=== PATIENT | female | born 1940 | race Caucasian/White ===

== ENCOUNTER 2017-10-19 18:32 | Emergency (ER) | payer OTHER ==
[2017-10-19] MEDS ORDERED: METHYLPREDNISOLONE 125 MG INJ ONE ×2 (18:37→19:13)
[2017-10-19] MEDS ORDERED: IPRATROPIUM BROM 0.5MG/2.5ML ONE (18:38)
[2017-10-19] MEDS ORDERED: ALBUTEROL 2.5 MG/3 ML NEB SOL ONE (18:38)
[2017-10-19 19:12] LABS: Absolute Lymphocytes (CBC) 3.3 K/uL (0.7-4.9); Absolute Monocytes 0.8 K/uL (0.1-1.3); Absolute Neutrophil 3.8 K/uL (1.8-8.0); Basophils % 1.4 % (0-1.3); Eosinophils % 11.1 % (0-4.4); Hematocrit 44.5 % (36.0-45.0); Lymphocytes % 36.8 % (15.3-44.8); MCH 31.3 pg (27.0-35.0); MCV 94.3 fL (80-100); MPV 9.5 fL (7.6-11.3); RBC Red Blood Cell Count 4.72 M/uL (3.86-4.86)
--- NOTE | 2017-10-19 19:20 | RAD REPORT ---
EXAM DESCRIPTION: Swapna Single View10/19/2017 7:02 pm CLINICAL HISTORY: Shortness of breath COMPARISON: July 2017 FINDINGS: Upper lobe opacities are unchanged and likely represents scarring. The lungs appear clear of acute infiltrate. The heart is normal size. The lungs are hyperaerated IMPRESSION: No acute abnormalities displayed
[2017-10-19 19:23] LABS: Albumin 3.9 g/dL (3.2-5.5); Bilirubin Direct 0.1 mg/dL (0-0.2); Bilirubin Total 0.7 mg/dL (0.3-1.2); Magnesium 2.1 mg/dL (1.8-2.5); Protein, Total 6.9 g/dL (6.0-8.3)
--- NOTE | 2017-10-19 20:05 | ER ---
Nurse's Notes [facility] Name: Maria Fernanda Toro Age: 77 yrs Sex: Female : 1940 Arrival Date: 10/19/2017 Time: 18:43 Bed 4 Private MD: Diagnosis: Chronic obstructive pulmonary disease with (acute) exacerbation Presentation: 10/19 18:44 Presenting complaint: EMS states: Home [employer] call due to increased shortness of jl7 breath since this morning. She had 4 albuterol treatments at home and 1 albuterol and Atrovent with EMS. Uses home oxygen. Transition of care: patient was not received from another setting of care. Onset of symptoms was October 19, 2017. Risk Assessment: Do you want to hurt yourself or someone else? Patient reports no desire to harm self or others. Initial Sepsis Screen: Does the patient meet any 2 criteria? No. Patient's initial sepsis screen is negative. Does the patient have a suspected source of infection? No. Patient's initial sepsis screen is negative. Care prior to arrival: Medication(s) given: Albuterol Neb x 1, Atrovent Neb x 1, Oxygen administered. via nasal cannula. 18:44 Method Of Arrival: EMS: [facility] jl7 18:44 Acuity: MARIUM 2 jl7 Triage Assessment: 18:44 General: Appears distressed, Behavior is calm, cooperative, appropriate for age. Pain: jl7 Denies pain. EENT: No signs and/or symptoms were reported regarding the EENT system. Neuro: Level of Consciousness is awake, alert, obeys commands, Oriented to person, place, time, situation. Cardiovascular: Heart tones S1 S2 present Patient's skin is warm and dry. Respiratory: Reports shortness of breath at rest Airway is patent Respiratory effort is even, labored, Respiratory pattern is symmetrical, tachypnea Breath sounds with wheezes bilaterally. Onset: The symptoms/episode began/occurred this morning, the patient has moderate shortness of breath. Historical: - Allergies: 18:54 adhesive tape-silicones; jl7 - Home Meds: 20:48 albuterol sulfate 2.5 mg /3 mL (0.083 %) Inhl nebu as needed [Active]; bupropion HCl bb 300 mg Oral Tb24 1 tab once daily [Active]; levothyroxine 100 mcg tab 1 tab once daily [Active]; losartan 50 mg Oral tab 1 tab once daily [Active]; prednisone 10 mg Oral tab 1 tab 2 times per day [Active]; simvastatin 20 mg Oral tab 1 tab once daily [Active]; sotalol 80 mg Oral tab 0.5 tab 2 times per day [Active]; montelukast 10 mg Oral tab 1 tab once daily [Active]; aspirin 81 mg Oral chew 1 tab once daily [Active]; donepezil 10 mg oral tab 1 tab once daily [Active]; performist as prescribed BID [Active]; ProAir HFA 90 mcg/actuation inhalation HFAA 2 puffs every 8 hours [Active]; Restasis 0.05 % ophthalmic dpet 1 drop 2 times per day [Active]; Atrovent Nebulizer every 6 hours [Active]; memantine 5 mg oral tab 1 tabs 2 times per day [Active]; theophylline 200 mg Oral Tb12 1 tab every 12 hours [Active]; - PMHx: 18:54 Atrial Fib; COPD; Dementia; High Cholesterol; Hypertension; Hypothyroidism; jl7 - PSHx: 18:54 Hysterectomy; Appendectomy; jl7 - Immunization history:: Adult Immunizations up to date. - Social history:: Smoking status: Patient/guardian denies using tobacco, but has a distant history of tobacco abuse. - Ebola Screening: : No symptoms or risks identified at this time. Screenin:54 Abuse screen: Denies threats or abuse. Denies injuries from another. Nutritional jl7 screening: No deficits noted. Tuberculosis screening: No symptoms or risk factors identified. Fall Risk IV access (20 points). Total [place] Fall Scale indicates No Risk (0-24 pts). Assessment: 19:00 Cardiovascular: Rhythm is sinus rhythm. bb 19:14 General: Appears in no apparent distress. slender, Behavior is calm, cooperative. Pain: bb Denies pain. Neuro: Level of Consciousness is awake, alert, obeys commands, Oriented to person, place, situation. Cardiovascular: Heart tones S1 S2 present Capillary refill < 3 seconds Patient's skin is warm and dry. Pulses are all present. Edema is absent. Respiratory: Airway is patent Respiratory effort is labored, Respiratory pattern is symmetrical, Breath sounds are diminished bilaterally. Breath sounds with wheezes bilaterally. GI: No signs and/or symptoms were reported involving the gastrointestinal system. Abdomen is non-distended. Derm: Skin is dry, Skin is pale, Skin temperature is warm. Musculoskeletal: Circulation, motion, and sensation intact. 20:15 Reassessment: Patient and/or family updated on plan of care and expected duration. Pain bb level reassessed. pt A\T\O x 3, resp improved bilateral breath sounds clearer pt states she is feeling better. 20:38 Reassessment: Patient is alert, oriented x 3, equal unlabored respirations, skin bb warm/dry/pink. pt and healthcare architect verbalized understanding of and agrees to plan of care discharge instructions given pt assisted to exit via wheelchair accompanied by healthcare architect. Vital Signs: 18:44 BP 174 / 68; Pulse 68; Resp 28 S; Temp 98.1(O); Pulse Ox 100% on Nebulizer Mask; Weight jl7 72.57 kg; Pain 0/10; 20:13 BP 133 / 85; Pulse 66; Resp 18 S; Pulse Ox 99% on 2 lpm NC; bb 20:39 BP 134 / 38; Pulse 66; Resp 18; Temp 97.9(O); Pulse Ox 99% on 2 lpm NC; bb ED Course: 18:43 Patient arrived in ED. jl7 18:44 Martín Wills PA is PHCP. jr8 18:44 Narciso Manley MD is Attending Physician. jr8 18:44 Inserted saline lock: 20 gauge in right antecubital area, using aseptic technique. iw Blood collected. 18:44 Arm band placed on right wrist. jl7 18:45 Triage completed. jl7 18:54 Patient has correct armband on for positive identification. Bed in low position. Call jl light in reach. Side rails up X2. general car yard supervisor on. Pulse ox on. NIBP on. Warm blanket given. 18:58 X-ray completed. Portable x-ray completed in exam room. Patient tolerated procedure kc2 well. 19:00 XRAY Chest (1 view) In Process Unspecified. EDMS 19:14 Vale Torres, GLORIA is Primary Nurse. bb 19:14 IV is intact. bb 19:14 general car yard supervisor on. Pulse ox on. NIBP on. bb 20:40 No provider procedures requiring assistance completed. IV discontinued, intact, bb bleeding controlled, No redness/swelling at site. Pressure dressing applied. Administered Medications: 18:45 Drug: Albuterol - atroVENT (3:1) (2.5 mg - 0.5 mg) 3 ml Route: Nebulizer; jl7 20:00 Follow up: Response: Marked relief of symptoms bb 18:45 Drug: SOLU-Medrol 125 mg Route: IVP; Site: right antecubital; jl7 20:00 Follow up: Response: Marked relief of symptoms larry Outcome: 20:04 Discharge ordered by . landon 20:40 Discharged to home via wheelchair, with healthcare architect larry 20:40 Condition: stable 20:40 Discharge instructions given to patient, [employer], Instructed on discharge instructions, follow up and referral plans. medication usage, Demonstrated understanding of instructions, follow-up care, medications, Prescriptions given X 1. 20:49 Patient left the ED. larry Signatures: Dispatcher [employer] EDMS Vale Torres RN RN bb Williams, Irene, RN RN iw Roszak, Josh, PA PA jr8 Carr, Kelsie kc Monisha Akbar RN RN jl7 Corrections: (The following items were deleted from the chart) 18:46 18:44 Care prior to arrival: None. radhika jl7
--- NOTE | 2017-10-19 20:05 | EDPHYS ---
Physician Documentation [facility] Name: Maria Fernanda Toro Age: 77 yrs Sex: Female : 1940 Arrival Date: 10/19/2017 Time: 18:43 Bed 4 Private MD: ED Physician Narciso Manley HPI: 10/19 19:22 This 77 yrs old Female presents to ER via EMS with complaints of Breathing jr8 Difficulty. 19:22 The patient has shortness of breath at rest. Onset: The symptoms/episode began/occurred jr8 gradually, 2 day(s) ago, and became worse and became persistent. The patient's shortness of breath is aggravated by talking, walking. Associated signs and symptoms: Pertinent positives: non-productive cough. Severity of symptoms: At their worst the symptoms were moderate in the emergency department the symptoms are unchanged. The patient has experienced similar episodes in the past, a few times. The patient has not recently seen a physician. Historical: - Allergies: 18:54 adhesive tape-silicones; jl7 - Home Meds: 20:48 albuterol sulfate 2.5 mg /3 mL (0.083 %) Inhl nebu as needed [Active]; bupropion HCl bb 300 mg Oral Tb24 1 tab once daily [Active]; levothyroxine 100 mcg tab 1 tab once daily [Active]; losartan 50 mg Oral tab 1 tab once daily [Active]; prednisone 10 mg Oral tab 1 tab 2 times per day [Active]; simvastatin 20 mg Oral tab 1 tab once daily [Active]; sotalol 80 mg Oral tab 0.5 tab 2 times per day [Active]; montelukast 10 mg Oral tab 1 tab once daily [Active]; aspirin 81 mg Oral chew 1 tab once daily [Active]; donepezil 10 mg oral tab 1 tab once daily [Active]; performist as prescribed BID [Active]; ProAir HFA 90 mcg/actuation inhalation HFAA 2 puffs every 8 hours [Active]; Restasis 0.05 % ophthalmic dpet 1 drop 2 times per day [Active]; Atrovent Nebulizer every 6 hours [Active]; memantine 5 mg oral tab 1 tabs 2 times per day [Active]; theophylline 200 mg Oral Tb12 1 tab every 12 hours [Active]; - PMHx: 18:54 Atrial Fib; COPD; Dementia; High Cholesterol; Hypertension; Hypothyroidism; jl7 - PSHx: 18:54 Hysterectomy; Appendectomy; jl7 - Immunization history:: Adult Immunizations up to date. - Social history:: Smoking status: Patient/guardian denies using tobacco, but has a distant history of tobacco abuse. - Ebola Screening: : No symptoms or risks identified at this time. ROS: 19:22 Eyes: Negative for injury, pain, redness, and discharge, ENT: Negative for injury, jr8 pain, and discharge, Neck: Negative for injury, pain, and swelling, Cardiovascular: Negative for chest pain, palpitations, and edema, Abdomen/GI: Negative for abdominal pain, nausea, vomiting, diarrhea, and constipation, Back: Negative for injury and pain, MS/Extremity: Negative for injury and deformity, Skin: Negative for injury, rash, and discoloration, Neuro: Negative for headache, weakness, numbness, tingling, and seizure. 19:22 Respiratory: Positive for cough, dyspnea on exertion, shortness of breath, wheezing. Exam: 19:22 Eyes: Pupils equal round and reactive to light, extra-ocular motions intact. Lids and jr8 lashes normal. Conjunctiva and sclera are non-icteric and not injected. Cornea within normal limits. Periorbital areas with no swelling, redness, or edema. ENT: Nares patent. No nasal discharge, no septal abnormalities noted. Tympanic membranes are normal and external auditory canals are clear. Oropharynx with no redness, swelling, or masses, exudates, or evidence of obstruction, uvula midline. Mucous membranes moist. Neck: Trachea midline, no thyromegaly or masses palpated, and no cervical lymphadenopathy. Supple, full range of motion without nuchal rigidity, or vertebral point tenderness. No Meningismus. Cardiovascular: Regular rate and rhythm with a normal S1 and S2. No gallops, murmurs, or rubs. Normal PMI, no JVD. No pulse deficits. Abdomen/GI: Soft, non-tender, with normal bowel sounds. No distension or tympany. No guarding or rebound. No evidence of tenderness throughout. Back: No spinal tenderness. No costovertebral tenderness. Full range of motion. Skin: Warm, dry with normal turgor. Normal color with no rashes, no lesions, and no evidence of cellulitis. MS/ Extremity: Pulses equal, no cyanosis. Neurovascular intact. Full, normal range of motion. Neuro: Awake and alert, GCS 15, oriented to person, place, time, and situation. Cranial nerves II-XII grossly intact. Motor strength 5/5 in all extremities. Sensory grossly intact. Cerebellar exam normal. Normal gait. 19:22 Respiratory: mild respiratory distress is noted, Respirations: tachypnea, Breath sounds: wheezing: expiratory that is moderate, is heard diffusely. Vital Signs: 18:44 BP 174 / 68; Pulse 68; Resp 28 S; Temp 98.1(O); Pulse Ox 100% on Nebulizer Mask; Weight jl7 72.57 kg; Pain 0/10; 20:13 BP 133 / 85; Pulse 66; Resp 18 S; Pulse Ox 99% on 2 lpm NC; bb 20:39 BP 134 / 38; Pulse 66; Resp 18; Temp 97.9(O); Pulse Ox 99% on 2 lpm NC; bb MDM: 18:44 Patient medically screened. jr8 20:02 Differential diagnosis: CHF exacerbation, Chronic Obstructive Pulmonary Disease jr8 pneumonia, pulmonary edema, Sepsis. Data reviewed: vital signs, nurses notes, lab test result(s), radiologic studies, plain films, and as a result, I will discharge patient. Data interpreted: Pulse oximetry: on 2L(s) per nasal canula, is 100 %. Interpretation: normal. Counseling: I had a detailed discussion with the patient and/or guardian regarding: the historical points, exam findings, and any diagnostic results supporting the discharge/admit diagnosis, lab results, radiology results, the need for outpatient follow up, a family practitioner, to return to the emergency department if symptoms worsen or persist or if there are any questions or concerns that arise at home. Response to treatment: the patient's symptoms have markedly improved after treatment. 10/19 18:45 Order name: Basic Metabolic Panel; Complete Time: 19:10/19 18:45 Order name: BNP; Complete Time: 19:10/19 18:45 Order name: CBC with Diff; Complete Time: 19:17 10/19 18:45 Order name: LFT's; Complete Time: :10/19 18:45 Order name: Magnesium; Complete Time: 19:10/19 18:45 Order name: XRAY Chest (1 view); Complete Time: 19:20 10/19 18:45 Order name: EKG; Complete Time: 18:45 10/19 18:45 Order name: Cardiac monitoring; Complete Time: 19:10/19 18:45 Order name: EKG - Nurse/Tech; Complete Time: 19:10/19 18:45 Order name: IV Saline Lock; Complete Time: 19:10/19 18:45 Order name: Labs collected and sent; Complete Time: :10/19 18:45 Order name: O2 Per Protocol; Complete Time: :10/19 18:45 Order name: O2 Sat Monitoring; Complete Time: : Administered Medications: 18:45 Drug: Albuterol - atroVENT (3:1) (2.5 mg - 0.5 mg) 3 ml Route: Nebulizer; jl7 20:00 Follow up: Response: Marked relief of symptoms bb 18:45 Drug: SOLU-Medrol 125 mg Route: IVP; Site: right antecubital; jl7 20:00 Follow up: Response: Marked relief of symptoms bb Disposition: 10/20 07:28 Co-signature as Attending Physician, Narciso Manley MD I agree with the assessment and kdr plan of care. Disposition: 10/19/17 20:04 Discharged to Home. Impression: Chronic obstructive pulmonary disease with (acute) exacerbation. - Condition is Stable. - Discharge Instructions: Chronic Obstructive Pulmonary Disease. - Prescriptions for Prednisone 20 mg Oral Tablet - take 2 tablet by ORAL route once daily for 5 days; 10 tablet. - Medication Reconciliation Form, Thank You Letter, Antibiotic Education, Prescription Opioid Use form. - Follow up: Private Physician; When: 2 - 3 days; Reason: Recheck today's complaints, Continuance of care, Re-evaluation by your physician. - Problem is new. - Symptoms have improved. Signatures: Dispatcher [employer] EDNarciso Jara MD MD [facility] Vale Torres RN RN bb Martín Wills PA PA jr8 Monisha Akbar RN RN jl7 Corrections: (The following items were deleted from the chart) 10/19 20:49 20:04 10/19/2017 20:04 Discharged to Home. Impression: Chronic obstructive pulmonary bb disease with (acute) exacerbation. Condition is Stable. Forms are Medication Reconciliation Form, Thank You Letter, Antibiotic Education, Prescription Opioid Use. Follow up: Private Physician; When: 2 - 3 days; Reason: Recheck today's complaints, Continuance of care, Re-evaluation by your physician. Problem is new. Symptoms have improved. jr8
[2017-10-19 20:53] VITALS: O2SAT 99
[2017-10-19 20:54] VITALS: BP 134/38; TEMP 97.9
--- NOTE | 2017-10-20 10:37 | EKG ---
Test Date: 2017-10-19 Test Time: 18:44:00 Partner Management Consultant: SU MEASUREMENT RESULTS: Intervals: Rate: 67 WI: 142 QRSD: 116 QT: 404 QTc: 426 [place]: P: 72 WI: 142 QRS: 49 T: 38 INTERPRETIVE STATEMENTS: Normal sinus rhythm Right bundle branch block Abnormal ECG Compared to ECG 08/07/2017 12:19:32 Sinus bradycardia no longer present Electronically Signed On 10-20-17 10:34:56 CDT by Rodrigo Vang
== END 2017-10-19 20:49 | disposition home or self-care (01) ==
LOC: ER 18:32
DX: J44.1 Chronic obstructive pulmonary disease with (acute) exacerbation (principal); I48.91 Unspecified atrial fibrillation; I10 Essential (primary) hypertension; E78.00 Pure hypercholesterolemia, unspecified; Z87.891 Personal history of nicotine dependence; F03.90 Unspecified dementia, unspecified severity, without behavioral disturbance, psychotic disturbance, mood disturbance, and anxiety; E03.9 Hypothyroidism, unspecified; Z99.81 Dependence on supplemental oxygen; Z91.040 Latex allergy status
CPT/HCPCS: 36415; 71045; 80048; 80076; 83735; 83880; 85025; 93005; 94640; 96374; 99285; J2930

== ENCOUNTER 2018-05-02 06:38 | Inpatient (IN) | payer OTHER ==
--- OUTSIDE RECORDS SUMMARY | 2018-05-02 06:41 | XMS REPORT | Continuity of Care Document ---
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 [place] Depression with Active 08/09/19 Finding 08/08/[address] [facility] 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 Alzheimer's [facility] disease [place] Hypothyroidism Active 08/09/19 Finding 08/08/[address] [facility] [place] Oxygen dependent Active 08/09/19 Finding 08/08/[address] [facility] [place] Chest pain Active 08/09/19 Finding 08/08/[address] 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 Alzheimer[facility] disease [place] Mixed anxiety Active 08/09/19 Finding 08/08/[address] [facility] depressive [facility] disorder [place] Dependence on Active 08/09/19 Finding 08/08/[address] [facility] supplemental 18 [facility] oxygen [place] Steroid Active 08/09/19 Finding 08/08/[address] [facility] dependence [facility] [place] Tobacco use Active 06/01/19 Finding 08/08/[address] [facility] disorder [facility] [place] Seizures Active 09/09/19 Finding 08/08/[address] [facility] [place] UTI Active 07/20/19 Finding 08/08/[address] [facility] [place] Respiratory Active 07/20/19 Finding 08/08/[address] [facility] distress [facility] [place] Acute bronchitis Active 07/20/19 Finding 08/08/[address] [facility] [facility] COPD [facility] [place] COPD exacerbation Active 10/15/19 Finding 08/08/[address] [facility] [place] Elevated troponin Active 10/15/19 Finding 08/08/[address] [facility] [place] COPD with acute Active 06/30/19 Finding 08/08/[address] [facility] [address] exacerbation [facility] [place] Hypertension Active 06/30/19 Finding 08/08/[address] [facility] [place] Dyspnea Active 04/23/20 Finding 08/08/[address] [facility] [place] COPD Active 04/23/20 Finding 08/08/[address] [facility] [place] Non Q wave Active 04/21/20 Finding 08/08/[address] [facility] myocardial [facility] - infarction [place] Atrial Active 03/03/20 Finding 08/08/[address] [facility] fibrillation [facility] [place] Hypoxia Active 08/29/19 Finding 08/08/[address] [facility] [place] Failure of Active 06/11/19 Finding 08/08/[address] [facility] treatment [place] Acute OR Active Finding 08/08/[address] [facility] [place] Medications Medication Details Route Status Patient Ordering Order Source Instructions Provider Date Levothyroxine DAILY AT [address] [facility] [place] Prednisone TWICE DAILY Active Prezas [facility] [place] Aspirin DAILY [facility] [place] Theophylline DAILY Active [facility] Anhydrous [facility] [place] Donepezil AT BEDTIME Active [facility] [place] Simvastatin DAILY Active [facility] [place] Montelukast AT BEDTIME Active [facility] [place] Prednisone TWICE DAILY Active Greg [facility] [place] Budesonide/Form TWICE DAILY Active [facility] oterol Fumarate 9AM & 2PM [facility] [place] Doxycycline TWICE DAILY Active [facility] Hyclate 9AM & 2PM [facility] [place] Levothyroxine DAILY AT [address] [facility] [place] Losartan DAILY Active [facility] Potassium [facility] [place] Sotalol Hcl TWICE DAILY Active [facility] 9AM & 2PM [facility] [place] Tiotropium DAILY Active [facility] [place] Bupropion Hcl TWICE DAILY Active [facility] [place] Prednisone TWICE DAILY Active Dov [facility] [place] Formoterol TWICE DAILY Active Bee [facility] Fumarate RESPIRATORY [facility] [place] Prednisone DAILY AT [address] [facility] [place] Levothyroxine DAILY AT [address] [facility] [facility] [place] Prednisone TWICE DAILY Active Juanito [facility] [place] Sotalol Hcl TWICE DAILY Active [facility] 0600 AND 1800 0[facility] [place] Sotalol Hcl TWICE DAILY Active Alcaraz [facility] 0600 AND 1800 0[facility] [place] Rivaroxaban DAILY Active Alcaraz [facility] [place] Sotalol Hcl TWICE DAILY Active Castañeda [facility] 0600 AND 1800 015 [facility] [place] Rivaroxaban DAILY Active Castañeda [facility] [place] Albuterol NEEDED PRN Active [facility] Sulfate For Shortness 015 [facility] Of Breath [place] Losartan DAILY Active [facility] Potassium [facility] [place] Symbicort NEEDED PRN Active [facility] 160-4.5 Mcg For Shortness 012 [facility] - Inhaler Of Breath [place] Allergies, Adverse Reactions, Alerts Substance Category Reaction Severity Reaction Status Date Comments Source type Reported adhesive Unknown Allergy to Active [facility] tape Substance [facility] [place] adhesive Unknown Allergy to Active [facility] tape-silico Substance [facility] yoan [place] Immunizations Immunization Date Given Site Status Last Comments Source Updated Pneumovax 04/18/2015 completed [facility] [place] Results Order Name Results Value Reference Date Interpretation Comments Source Range Laboratory Creatine 1.9 ng/ml 0.3 - 4.0 08/08 [facility] St[facility] Studies Kinase MB /2017 [employer] - [place] Laboratory Creatine 49 IU/L 22 - 269 08/08 St[facility] Studies Kinase /2017 [facility] [place] Laboratory Troponin I null 08/08 St[facility] Studies /2017 [facility] [place] Laboratory Triglycerides 88 mg/dL 35 - 160 08/08 St[facility] Studies Level /2017 [facility] [place] Laboratory Sodium Level 140 mEq/L 135 - 145 08/08 [facility] [address] Studies /2017 [facility] [place] Laboratory Potassium 4.8 mEq/L 3.6 - 5.0 08/08 [facility] [address] Studies Level /2017 [facility] [place] Laboratory Magnesium 2.1 mg/dL 1.8 - 2.5 08/08 [facility]. Studies Level /2017 [facility] [place] Laboratory LDL 66 08/08 [facility]. Studies Cholesterol, /2017 [facility] - Calculated [place] Laboratory HDL 88 mg/dL 29 - 89 08/[address] [facility] [address] Studies Cholesterol /2017 [facility] [place] Laboratory Glucose Level 138 mg/dL 65 - 120 08/08 [facility] [address] Studies /2018 [facility] [place] Laboratory Estimat 56 mL/min 90 08/08 [facility]. Studies Glomerular /2017 [facility] - Filtration [place] Rate Laboratory Creatinine 0.97 mg/dL 0.44 - 08/08 [facility] [address] Studies 1.00 [employer] - [place] Laboratory Cholesterol/H 1.95 08/08 [facility]. Studies DL Ratio /2017 [employer] - [place] Laboratory Cholesterol 172 mg/dL 08/[address] [facility] [address] Studies Level /2017 [facility] [place] Laboratory Chloride 107 mEq/L 101 - 111 08/08 [facility] [address] Studies Level /2018 [facility] [place] Laboratory Carbon 29 mEq/L 21 - 31 08/08 [facility]. Studies Dioxide Level /2017 [employer] - [place] Laboratory Calcium Level 9.5 mg/dL 8.5 - 10.5 08/08 [facility] [address] Studies /2017 [facility] [place] Laboratory Blood Urea 18 mg/dL 6 - 20 08/08 [facility] [address] Studies Nitrogen /2017 [employer] - [place] Laboratory White Blood 12.3 K/uL 4.3 - 10.9 08/08 [facility] [address] Studies Count /2017 [employer] - [place] Laboratory Red Cell 13.4 % 12.1 - 08/08 [facility] [address] Studies Distribution 15.2 [facility] - Width [place] Laboratory Red Blood 4.25 M/uL 3.86 - 08/08 [facility] [address] Studies Count 4.86 [facility] [place] Laboratory Platelet 289 K/uL 152 - 406 08/[address] [facility] [address] Studies Count /2017 [facility] [place] Laboratory Neutrophils % 80.3 % 41.7 - 08/08 [facility] [address] Studies 73.7 /2017 [facility] [place] Laboratory Monocytes % 3.7 % 3.3 - 12.3 08/08 [facility] [address] Studies /2017 [facility] [place] Laboratory Mean Platelet 9.4 fL 7.6 - 11.3 08/08 [facility] [address] Studies Volume /2017 [facility] [place] Laboratory Mean 94.0 fL 80 - 100 08/08 [facility]. Studies Corpuscular /2017 [facility] - Volume [place] Laboratory Mean 33.3 g/dL 32.0 - 08/08 [facility] [address] Studies Corpuscular 36.0 [facility] - Hemoglobin [place] Concent Laboratory Mean 31.3 pg 27.0 - 08/08 [facility]. Studies Corpuscular 35.0 [facility] - Hemoglobin [place] Laboratory Lymphocytes % 15.1 % 15.3 - 08/08 [facility] [address] Studies 44.8 /2017 [facility] [place] Laboratory Hemoglobin 13.3 g/dL 12.0 - 08/08 [facility] [address] Studies 15.0 /2017 [facility] [place] Laboratory Hematocrit 39.9 % 36.0 - 08/08 [facility] [address] Studies 45.0 [facility] [place] Laboratory Eosinophils % 0.2 % 0 - 4.4 08/08 [facility] [address] Studies /2017 [facility] [place] Laboratory Basophils % 0.7 % 0 - 1.3 08/08 [facility] [address] Studies /2017 [facility] [place] Laboratory Absolute 9.9 K/uL 1.8 - 8.0 08/08 [facility] [address] Studies Neutrophil /2017 [facility] [place] Laboratory Absolute 0.5 K/uL 0.1 - 1.3 08/08 [facility] [address] Studies Monocytes /2017 [facility] - (CBC) [place] Laboratory Absolute 1.9 K/uL 0.7 - 4.9 08/08 [facility] [address] Studies Lymphocytes /2017 [facility] - (CBC) [place] Laboratory Absolute 0.0 K/uL 0 - 0.5 08/08 St[facility] Studies Eosinophils [facility] - (CBC) [place] Laboratory Absolute 0.1 K/uL 0 - 0.5 08/08 [facility] [address] Studies Basophils [facility] - (CBC) [place] Laboratory Thyroid 0.07 uIU/mL 0.34 - 08/07 [facility] St. Studies Stimulating 5.60 [facility] - Hormone (TSH) [place] Laboratory Urine pH 7.0 08/07 [facility] [address] Studies [facility] [place] Laboratory Urine Total Urine Total 08/07 [facility] [address] Studies Protein Protein [facility] [place] Laboratory Urine 1.025 08/07 [facility] [address] Studies Specific [facility] - Hilliards [place] Laboratory Urine Nitrite Urine 08/07 [facility] [address] Studies Nitrite [facility] [place] Laboratory Urine Urine 08/07 [facility]. Studies Leukocyte Leukocyte [facility] - Esterase Esterase [place] Laboratory Urine Ketones Urine 08/07 [facility] [address] Studies Ketones [facility] [place] Laboratory Urine Glucose Urine 08/07 [facility] [address] Studies Glucose [facility] [place] Laboratory Urine Blood Urine Blood 08/07 [facility] [address] Studies [facility] [place] Laboratory B-Type 107 pg/ml 08/07 [facility] [address] Studies Natriuretic [facility] - Peptide [place] Laboratory Total 0.8 mg/dL 0.3 - 1.2 08/07 [facility] [address] Studies Bilirubin [facility] [place] Laboratory Serum Total 7.0 g/dL 6.0 - 8.3 08/07 [facility] [address] Studies Protein [facility] [place] Laboratory Globulin 3.0 g/dL 2.3 - 3.5 08/07 [facility] [address] Studies [facility] [place] Laboratory Direct 0.1 mg/dL 0 - 0.2 08/07 [facility] [address] Studies Bilirubin [facility] [place] Laboratory Aspartate 23 IU/L 10 - 42 08/07 [facility] [address] Studies Amino Transf [facility] - (AST/SGOT) [place] Laboratory Alkaline 59 IU/L 42 - 121 08/07 [facility] [address] Studies Phosphatase [facility] [place] Laboratory Albumin/Globu 1.3 1.1 - 1.8 08/07 [facility]. Studies robby Ratio /2017 [facility] [place] Laboratory Albumin 4.0 g/dL 3.2 - 5.5 08/07 [facility] [address] Studies /2017 [facility] [place] Laboratory Alanine 10 IU/L 10 - 60 08/07 [facility]. Studies Aminotransfer /2017 [facility] - ase [place] (ALT/SGPT) Laboratory Rapid null 08/07 [facility]. Studies Troponin I /2017 [facility] [place] Laboratory Lipase 29 U/L 22 - 51 08/07 [facility] [address] Studies /2017 [facility] [place] Laboratory Prothrombin 11.1 9.5 - 12.5 08/07 [facility]. Studies Time SECONDS /2017 [facility] [place] Laboratory INR 0.94 08/07 [facility] [address] Studies International /2017 [facility] - Normalized [place] Ratio Laboratory Activated 24.2 24.3 - 08/07 [facility]. Studies Partial SECONDS 36.9 [facility] - Thromboplast [place] Time Laboratory Phosphorus 4.5 mg/dL 2.5 - 4.3 06/03 [facility]. Studies Level /2017 [facility] [place] Laboratory Urine WBC null 06/01 [facility] [address] Studies [facility] [place] Laboratory Urine 0.2 mg/dL 06/01 [facility]. Studies Urobilinogen /2017 [facility] [place] Laboratory Urine Urine 06/01 [facility]. Studies Squamous Squamous /2017 [facility] - Epithelial Epithelial [place] Cells Cells Laboratory Urine RBC null 06/01 [facility] [address] Studies [facility] [place] Laboratory Urine Culture Urine 06/01 [facility]. Studies Reflexed Culture /2017 [facility] - Reflexed [place] Laboratory Urine Color Urine Color 06/01 [facility] St[facility] Studies /2018 [facility] [place] Laboratory Urine Urine 06/01 [facility]. Studies Bilirubin Bilirubin /2017 [facility] [place] Laboratory Urine null 06/01 [facility]. Studies Bacteria /2017 [facility] [place] Laboratory Urine Urine 06/01 [facility]. Studies Appearance Appearance /2017 [facility] [place] Laboratory Procalcitonin null 05/31 [facility] [address] Studies [facility] [place] Vital Signs Vital Sign Value Date Comments Source Temperature Oral (F) 97.9 F 08/08/2017 [facility]. [facility] [place] Heart Rate 63 08/08/2017 [facility]. [facility] [place] Respitory Rate 17 08/08/[address] [facility] [place] Systolic (mm Hg) 152 08/08/[address] [facility] [place] Diastolic (mm Hg) 73 08/08/[address] [facility] [address] [place] Height 64 08/07/[address] [facility] [address] [place] - [place] Weight 125 08/07/[address] [facility] [address] [place] Encounters Location Location Encounter Encounter Reason Attending ADM DC Status Source Details Type Number For Provider Date Date Visit [facility] [id number] 05/29 05/29 [facility] [place] [facility] [id number] 05/30 05/[facility] [place] [facility] St[facility] Discharged [id number] 05/31 06/[address] [facility] [place] [facility] St[facility] Registered [id number] 07/[address] [facility] [place] [facility] St[facility] Discharged [id number] 08/07 08/[address] [facility] [place] Procedures Procedure Code Date Perfomer Comments Source [id number] [facility] [place] Count [id number] [facility] [place] Chest Single [id number] [facility] - View 8 [place] Influenza Type [facility] - B Antigen 8 [place] Screen Influenza Type [facility] - A Antigen 8 [place] Screen Anaerobic Blood [facility] - Culture 8 [place] Aerobic Blood [facility] Culture 8 [place] Thorax Wo Con [id number] [facility] 8 [place] Chest Single [id number] [facility] View 8 [place] [id number] [facility] [place] Count [id number] [facility] [place] Chest Single [id number] [facility] View 8 [place] Anaerobic Blood [id number] [facility] Culture 8 [place] Aerobic Blood [id number] [facility] Culture 8 [place] Chest Pa And [id number] [facility] - Lat (2 Views) 8 [place] Anaerobic Blood [id number] [facility] Culture 8 [place] Aerobic Blood [id number] [facility] Culture 8 [place] Chest Single [id number] [facility] View 8 [place] Influenza Type [facility] B Antigen 8 [place] Screen Influenza Type [facility] A Antigen 8 [place] Screen
[2018-05-02] MEDS ORDERED: ACETAMINOPHEN 325 MG TABLET ONE (07:24)
[2018-05-02] MEDS ORDERED: ALBUTEROL 2.5 MG/3 ML NEB SOL ONE (07:24)
[2018-05-02] MEDS ORDERED: IPRATROPIUM BROM 0.5MG/2.5ML ONE (07:24)
[2018-05-02] MEDS ORDERED: METHYLPREDNISOLONE 125 MG INJ ONE (07:24)
[2018-05-02] MEDS ORDERED: NA CHLORIDE 0.9% 500 ML ONE (07:24)
[2018-05-02] MEDS ORDERED: CEFTRIAXONE/SWI 1gm 2 GM/20 ML SYR ONE (07:25)
[2018-05-02] MEDS ORDERED: AZITHROMYCIN 500 MG/250 ML BAG ONE (07:25)
--- NOTE | 2018-05-02 07:29 | EDPHYS ---
Physician Documentation [facility] Name: Maria Fernanda Toro Age: 77 yrs Sex: Female : 1940 Arrival Date: 05/02/2018 Time: 06:40 Bed 4 Private MD: ORACIO Physician Matt Romero HPI: 05/02 07:05 This 77 yrs old Female presents to ER via EMS with complaints of cough ,fever manuel and ams. 07:05 The patient or guardian reports airway noise, cough, difficulty breathing. Onset: The manuel symptoms/episode began/occurred 2 day(s) ago. Modifying factors: The symptoms are alleviated by nothing. the symptoms are aggravated by nothing. The patient presents with confusion, decreased mental status. Possible causes: sepsis. The patient or guardian reports flu symptoms, arthralgias, low-grade fever, myalgias. Associated signs and symptoms: The patient has no apparent associated signs or symptoms. Historical: - Allergies: 06:49 adhesive tape-silicones; bb - Home Meds: 06:49 memantine 5 mg Oral tab 1 tabs daily [Active]; bupropion HCl 300 mg Oral Tb24 1 tab bb once daily [Active]; donepezil 10 mg Oral tab 1 tab once daily [Active]; sotalol 80 mg Oral tab 0.5 tab 2 times per day [Active]; theophylline 200 mg Oral Tb12 1 tab daily [Active]; simvastatin 20 mg Oral tab 1 tab once daily [Active]; montelukast 10 mg Oral tab 1 tab once daily [Active]; prednisone 10 mg Oral tab 1 tab once daily [Active]; losartan 50 mg Oral tab 1 tab once daily [Active]; levothyroxine 100 mcg tab 1 tab once daily [Active]; vit d3 1000 iu daily [Active]; aspirin 81 mg Oral chew 1 tab once daily [Active]; - PMHx: 06:49 Atrial Fib; COPD; Dementia; High Cholesterol; Hypertension; Hypothyroidism; bb - PSHx: 06:49 Hysterectomy; Appendectomy; bb - Immunization history:: Adult Immunizations unknown. - Social history:: Smoking status: unknown. - Ebola Screening: : No symptoms or risks identified at this time. - Family history:: not pertinent. ROS: 07:05 Eyes: Negative for injury, pain, redness, and discharge, ENT: Negative for injury, manuel pain, and discharge, Neck: Negative for injury, pain, and swelling, Cardiovascular: Negative for chest pain, palpitations, and edema, Abdomen/GI: Negative for abdominal pain, nausea, vomiting, diarrhea, and constipation, Back: Negative for injury and pain, : Negative for injury, bleeding, discharge, and swelling, MS/Extremity: Negative for injury and deformity, Skin: Negative for injury, rash, and discoloration, Neuro: Negative for headache, weakness, numbness, tingling, and seizure. 07:05 Constitutional: Positive for fever, malaise. Exam: 07:05 Constitutional: This is a well developed, well nourished patient who is awake, alert, manuel and in no acute distress. Head/Face: Normocephalic, atraumatic. Eyes: Pupils equal round and reactive to light, extra-ocular motions intact. Lids and lashes normal. Conjunctiva and sclera are non-icteric and not injected. Cornea within normal limits. Periorbital areas with no swelling, redness, or edema. ENT: Nares patent. No nasal discharge, no septal abnormalities noted. Tympanic membranes are normal and external auditory canals are clear. Oropharynx with no redness, swelling, or masses, exudates, or evidence of obstruction, uvula midline. Mucous membranes moist. Neck: Trachea midline, no thyromegaly or masses palpated, and no cervical lymphadenopathy. Supple, full range of motion without nuchal rigidity, or vertebral point tenderness. No Meningismus. Chest/axilla: Normal chest wall appearance and motion. Nontender with no deformity. No lesions are appreciated. Cardiovascular: Regular rate and rhythm with a normal S1 and S2. No gallops, murmurs, or rubs. Normal PMI, no JVD. No pulse deficits. Abdomen/GI: Soft, non-tender, with normal bowel sounds. No distension or tympany. No guarding or rebound. No evidence of tenderness throughout. Back: No spinal tenderness. No costovertebral tenderness. Full range of motion. Skin: Warm, dry with normal turgor. Normal color with no rashes, no lesions, and no evidence of cellulitis. MS/ Extremity: Pulses equal, no cyanosis. Neurovascular intact. Full, normal range of motion. Neuro: Awake and alert, GCS 15, oriented to person, place, time, and situation. Cranial nerves II-XII grossly intact. Motor strength 5/5 in all extremities. Sensory grossly intact. Cerebellar exam normal. Normal gait. Psych: Awake, alert, with orientation to person, place and time. Behavior, mood, and affect are within normal limits. 07:05 Respiratory: mild respiratory distress is noted, moderate respiratory distress is noted, Respirations: normal, Breath sounds: decreased breath sounds, that are moderate, are heard in the left posterior upper lobe, right posterior upper lobe, left posterior lower lobe, right posterior middle lobe and right posterior lower lobe, rhonchi, + upper airway congestion. wheezing: Vital Signs: 06:49 BP 138 / 87; Pulse 73; Resp 20; Temp 100; Pulse Ox 98% ; ea 08:06 BP 135 / 67; Pulse 68 MON; Resp 24; Temp 101(C); Pulse Ox 100% on Nebulizer Mask; sv 08:56 BP 118 / 50; Pulse 93; Resp 21; Temp 100.5(C); Pulse Ox 96% ; sv 09:03 BP 109 / 57; Pulse 71; Resp 23; Temp 100.3(C); Pulse Ox 95% on R/A; sv 09:26 Temp 100.1(C); sv 08:06 Sinus Rhythm sv MDM: 06:53 Patient medically screened. [facility] 07:09 Data reviewed: vital signs, nurses notes, EMS record, lab test result(s), EKG, manuel radiologic studies, plain films. 05/02 07:05 Order name: Basic Metabolic Panel [facility] 05/02 07:05 Order name: CBC with Diff; Complete Time: 07:55 [facility] 05/02 07:05 Order name: LFT's; Complete Time: 08:29 [facility] 05/02 07:05 Order name: Magnesium; Complete Time: 08:29 [facility] 05/02 07:05 Order name: NT PRO-BNP; Complete Time: 08:29 [facility] 05/02 07:05 Order name: PT-INR [facility] 05/02 07:05 Order name: Troponin (emerg Dept Use Only); Complete Time: 08:29 [facility] 05/02 07:05 Order name: Lipase; Complete Time: 08:29 [facility] 05/02 07:05 Order name: Blood Culture Adult (2) [facility] 05/02 07:05 Order name: Urine Culture [facility] 05/02 07:05 Order name: Influenza Screen (a \T\ B); Complete Time: 07:55 [facility] 05/02 07:05 Order name: Procalcitonin; Complete Time: 08:29 [facility] 05/02 07:05 Order name: Lactate; Complete Time: 08:29 [facility] 05/02 07:17 Order name: Basic Metabolic Panel; Complete Time: 08:29 [facility] 05/02 07:05 Order name: XRAY Chest (1 view) [facility] 05/02 07:05 Order name: EKG; Complete Time: 07:17 [facility] 05/02 07:05 Order name: Cardiac monitoring; Complete Time: 08:04 [facility] 05/02 07:05 Order name: EKG - Nurse/Tech; Complete Time: 08:04 [facility] 05/02 07:05 Order name: IV Saline Lock; Complete Time: 07:07 [facility] 05/02 07:05 Order name: Labs collected and sent; Complete Time: 08:04 [facility] 05/02 07:05 Order name: O2 Per Protocol; Complete Time: 08:04 [facility] 05/02 08:08 Order name: Urine Dipstick--Ancillary (enter results) [facility] 05/02 08:23 Order name: Heart Healthy [facility] 05/02 07:05 Order name: O2 Sat Monitoring; Complete Time: 08:04 [facility] 05/02 07:05 Order name: Urine Dipstick-Ancillary (obtain specimen); Complete Time: 08:05 [facility] 05/02 07:42 Order name: Teague; Complete Time: 08:04 [facility] Administered Medications: 07:30 Drug: SOLU-Medrol 125 mg Route: IVP; Site: right forearm; sv 08:15 Follow up: Response: No adverse reaction sv 07:35 Drug: NS 0.9% 500 ml Route: IV; Rate: bolus; Site: right forearm; sv 08:15 Follow up: Response: No adverse reaction; IV Status: Completed infusion; IV Intake: sv 500ml 07:35 Drug: Tylenol 650 mg Route: PO; sv 09:26 Follow up: Temp 100.1 Catheter; Response: No adverse reaction; Temperature is decreased sv 07:37 Drug: Rocephin - (cefTRIAXone) 2 grams Route: IVPB; Infused Over: 30 mins; Site: right sv forearm; 08:15 Follow up: Response: No adverse reaction; IV Status: Completed infusion; IV Intake: 20mlsv 08:02 Drug: Albuterol - atroVENT (3:1) (2.5 mg - 0.5 mg) 3 ml Route: Nebulizer; sv 08:14 Follow up: Response: No adverse reaction sv 08:16 Drug: Zithromax 500 mg Route: IVPB; Infused Over: 1 hrs; Site: right forearm; sv 09:26 Follow up: Response: No adverse reaction; IV Status: Completed infusion; IV Intake: sv 250ml Disposition: 05/02/18 07:28 Hospitalization ordered by Chino Garza for Inpatient Admission. Preliminary diagnosis are Dyspnea, Fever, unspecified, Altered mental status, unspecified, Chronic obstructive pulmonary disease with (acute) exacerbation, Dementia in other diseases classified elsewhere, Elevated white blood cell count. - Bed requested for Telemetry/MedSurg (Inpatient). - Status is Inpatient Admission. sv - Condition is Fair. - Problem is new. - Symptoms have improved. UTI on Admission? No Signatures: Dispatcher [employer] [facility] Tamera Slade, SHARLENE-C CLINICAL DOCUMENTATION IMPROVEMENT SPECIALIST-Evelyn Avila RN RN Adeladia Gaitan RN RN dw Anderson, Corey, MD MD cha Ballard, Brenda, RN RN bb Corrections: (The following items were deleted from the chart) 07:55 07:28 Hospitalization Ordered by Chino Garza MD for Inpatient Admission. Preliminary manuel diagnosis is Dyspnea; Fever, unspecified; Altered mental status, unspecified; Chronic obstructive pulmonary disease with (acute) exacerbation; Dementia in other diseases classified elsewhere. Bed requested for Telemetry/MedSurg (Inpatient). Status is Inpatient Admission. Condition is Fair. Problem is new. Symptoms have improved. UTI on Admission? No. manuel 08:35 08:30 Arterial Blood Gas+RC.LAB.BRZ ordered. [facility] EDNV 09:00 07:55 05/02/2018 07:28 Hospitalization Ordered by Chino Garza MD for Inpatient dw Admission. Preliminary diagnosis is Dyspnea; Fever, unspecified; Altered mental status, unspecified; Chronic obstructive pulmonary disease with (acute) exacerbation; Dementia in other diseases classified elsewhere; Elevated white blood cell count. Bed requested for Telemetry/MedSurg (Inpatient). Status is Inpatient Admission. Condition is Fair. Problem is new. Symptoms have improved. UTI on Admission? No. manuel 09:42 09:00 05/02/2018 07:28 Hospitalization Ordered by Chino Garza MD for Inpatient sv Admission. Preliminary diagnosis is Dyspnea; Fever, unspecified; Altered mental status, unspecified; Chronic obstructive pulmonary disease with (acute) exacerbation; Dementia in other diseases classified elsewhere; Elevated white blood cell count. Bed requested for Telemetry/MedSurg (Inpatient). Status is Inpatient Admission. Condition is Fair. Problem is new. Symptoms have improved. UTI on Admission? No. dw
--- NOTE | 2018-05-02 07:29 | ER ---
Nurse's Notes [facility] Name: Maria Fernanda Toro Age: 77 yrs Sex: Female : 1940 Arrival Date: 05/02/2018 Time: 06:40 Bed 4 Private MD: Diagnosis: Dyspnea;Fever, unspecified;Altered mental status, unspecified;Chronic obstructive pulmonary disease with (acute) exacerbation;Dementia in other diseases classified elsewhere;Elevated white blood cell count Presentation: 05/02 06:42 Presenting complaint: EMS states: they were toned out for report of pt being more bb confused than normal x 1 week. Transition of care: patient was not received from another setting of care. Onset of symptoms is unknown. Risk Assessment: Do you want to hurt yourself or someone else? Patient reports no desire to harm self or others. Initial Sepsis Screen: Does the patient meet any 2 criteria? No. Patient's initial sepsis screen is negative. Does the patient have a suspected source of infection? No. Patient's initial sepsis screen is negative. Care prior to arrival: None. 06:42 Method Of Arrival: EMS: [facility] bb 06:42 Acuity: MARIUM 2 bb Historical: - Allergies: 06:49 adhesive tape-silicones; bb - Home Meds: 06:49 memantine 5 mg Oral tab 1 tabs daily [Active]; bupropion HCl 300 mg Oral Tb24 1 tab bb once daily [Active]; donepezil 10 mg Oral tab 1 tab once daily [Active]; sotalol 80 mg Oral tab 0.5 tab 2 times per day [Active]; theophylline 200 mg Oral Tb12 1 tab daily [Active]; simvastatin 20 mg Oral tab 1 tab once daily [Active]; montelukast 10 mg Oral tab 1 tab once daily [Active]; prednisone 10 mg Oral tab 1 tab once daily [Active]; losartan 50 mg Oral tab 1 tab once daily [Active]; levothyroxine 100 mcg tab 1 tab once daily [Active]; vit d3 1000 iu daily [Active]; aspirin 81 mg Oral chew 1 tab once daily [Active]; - PMHx: 06:49 Atrial Fib; COPD; Dementia; High Cholesterol; Hypertension; Hypothyroidism; bb - PSHx: 06:49 Hysterectomy; Appendectomy; bb - Immunization history:: Adult Immunizations unknown. - Social history:: Smoking status: unknown. - Ebola Screening: : No symptoms or risks identified at this time. - Family history:: not pertinent. Screenin:30 Abuse screen: Denies threats or abuse. Denies injuries from another. Nutritional sv screening: No deficits noted. Tuberculosis screening: No symptoms or risk factors identified. Fall Risk No fall in past 12 months (0 pts). Secondary diagnosis (15 points) dementia, IV access (20 points). Ambulatory Aid- None/Bed Rest/Nurse Assist (0 pts). Gait- Normal/Bed Rest/Wheelchair (0 pts) Mental Status- Overestimates/Forgets Limitations (15 pts.). Total Smallwood Fall Scale indicates High Risk Score (45 or more points). Fall prevention measures have been instituted. Side Rails Up X 2 Frequent Obs/Assessments Occuring Family Present and informed to notify staff if the need to leave the bedside As available patient and family educated on Fall Prevention Program and Strategies. Assessment: 06:49 General: Appears in no apparent distress. Behavior is cooperative. Pain: Denies pain. ea Neuro: Level of Consciousness is awake, alert, Oriented to person. Cardiovascular: Heart tones S1 S2 present Patient's skin is warm and dry. Respiratory: Airway is patent Respiratory effort is even, unlabored, Respiratory pattern is regular, symmetrical, Breath sounds with rhonchi in left upper lobe, left posterior upper lobe and right posterior upper lobe. GI: Abdomen is non-distended. Derm: Skin is pink, warm \T\ dry. 07:30 General: Appears in no apparent distress. uncomfortable, well developed, Behavior is sv cooperative. General: Caregiver reports that she has been more confused the last couple of days.. Pain: Denies pain. Neuro: Level of Consciousness is confused, lethargic, Oriented to person, Moves all extremities. Cardiovascular: Heart tones S1 S2 present Pulses are 3+ in right radial artery and left radial artery. Respiratory: Respiratory effort is even, unlabored, Respiratory pattern is tachypnea Breath sounds are diminished bilaterally. Breath sounds with rhonchi bilaterally. Derm: Skin is normal, Skin temperature is hot. 08:30 Reassessment: Spoke with Dr Garza, informed him that pt is still confused and sv attempting to get out of bed. Caregiver is at bedside. Stated that he would come and assess the pt. 08:45 Reassessment: Dr Greg at bedside. sv 09:05 Reassessment: Nurse to call back for report. sv 09:35 Reassessment: Patient appears in no apparent distress at this time. No changes from sv previously documented assessment. Patient and/or family updated on plan of care and expected duration. Pain level reassessed. Vital Signs: 06:49 BP 138 / 87; Pulse 73; Resp 20; Temp 100; Pulse Ox 98% ; ea 08:06 BP 135 / 67; Pulse 68 MON; Resp 24; Temp 101(C); Pulse Ox 100% on Nebulizer Mask; sv 08:56 BP 118 / 50; Pulse 93; Resp 21; Temp 100.5(C); Pulse Ox 96% ; sv 09:03 BP 109 / 57; Pulse 71; Resp 23; Temp 100.3(C); Pulse Ox 95% on R/A; sv 09:26 Temp 100.1(C); sv 08:06 Sinus Rhythm sv ED Course: 06:40 Patient arrived in ED. al2 06:43 Triage completed. bb 06:49 Arm band placed on Patient placed in an exam room, on a stretcher. bb 06:51 Patient has correct armband on for positive identification. Placed in gown. Bed in low ea position. Call light in reach. Side rails up X2. 06:53 Matt Romero MD is Attending Physician. manuel 07:06 Inserted saline lock: 22 gauge in right forearm, using aseptic technique. oe 07:17 Evelyn Day, GLORIA is Primary Nurse. sv 07:25 Chino Garza MD is Hospitalizing Provider. manuel 07:45 Teague cath inserted, using sterile technique, 16 Fr., by co, balloon inflated, to sv gravity drainage, urine specimen collected. other Criticore returned edmond urine. Patient tolerated poorly. 08:05 Basic Metabolic Panel Sent. sv 08:05 XRAY Chest (1 view) Sent. sv 08:11 X-ray completed. Portable x-ray completed in exam room. Patient tolerated procedure ag1 well. 08:17 XRAY Chest (1 view) In Process Unspecified. EDMS 09:05 No provider procedures requiring assistance completed. Patient admitted, IV remains in sv place. intact. 09:22 Patient moved back from CT. sv Administered Medications: 07:30 Drug: SOLU-Medrol 125 mg Route: IVP; Site: right forearm; sv 08:15 Follow up: Response: No adverse reaction sv 07:35 Drug: NS 0.9% 500 ml Route: IV; Rate: bolus; Site: right forearm; sv 08:15 Follow up: Response: No adverse reaction; IV Status: Completed infusion; IV Intake: sv 500ml 07:35 Drug: Tylenol 650 mg Route: PO; sv 09:26 Follow up: Temp 100.1 Catheter; Response: No adverse reaction; Temperature is decreased sv 07:37 Drug: Rocephin - (cefTRIAXone) 2 grams Route: IVPB; Infused Over: 30 mins; Site: right sv forearm; 08:15 Follow up: Response: No adverse reaction; IV Status: Completed infusion; IV Intake: 20mlsv 08:02 Drug: Albuterol - atroVENT (3:1) (2.5 mg - 0.5 mg) 3 ml Route: Nebulizer; sv 08:14 Follow up: Response: No adverse reaction sv 08:16 Drug: Zithromax 500 mg Route: IVPB; Infused Over: 1 hrs; Site: right forearm; sv 09:26 Follow up: Response: No adverse reaction; IV Status: Completed infusion; IV Intake: sv 250ml Intake: 08:15 IV: 20ml; Total: 20ml. sv 08:15 IV: 500ml; Total: 520ml. sv 09:26 IV: 250ml; Total: 770ml. sv Outcome: 07:28 Decision to Hospitalize by Provider. [facility] 09:34 Admitted to Med/surg accompanied by tech, via stretcher, room 403, with chart, Report sv called to Olive CASTRO 09:34 Condition: stable 09:34 Instructed on the need for admit. 09:42 Patient left the ED. sv Signatures: Dispatcher [employer] EDEvelyn Sims RN RN sv Anderson, Corey, MD MD cha Ballard, Brenda, RN RN bb Gallaway, Ashley ag1 tSephen Marie Elena RN Tangela Gomez ea
[2018-05-02 07:44] LABS: Absolute Lymphocytes (CBC) 2.8 K/uL (0.7-4.9); Absolute Monocytes 1.4 K/uL (0.1-1.3); Absolute Neutrophil 10.5 K/uL (1.8-8.0); Basophils % 1.1 % (0-1.3); Eosinophils % 0.6 % (0-4.4); Hematocrit 43.1 % (36.0-45.0); Lymphocytes % 18.8 % (15.3-44.8); MCV 94.4 fL (80-100); MPV 10.5 fL (7.6-11.3); Monocytes % 9.5 % (3.3-12.3); RBC Red Blood Cell Count 4.57 M/uL (3.86-4.86)
[2018-05-02] MEDS ORDERED: ACETAMINOPHEN 500 MG TAB PO PRN (08:19)
[2018-05-02] MEDS ORDERED: ONDANSETRON 4 MG/2 ML VIAL IV PRN (08:19)
[2018-05-02 08:26] LABS: ALT/SGPT 12 U/L (12-78); AST/SGOT 22 U/L (15-37); Albumin 3.3 g/dL (3.4-5.0); Alkaline Phosphatase 61 U/L (45-117); BUN Blood Urea Nitrogen 15 mg/dL (7-18); Bicarbonate 26 mmol/L (21-32); Bilirubin Direct 0.1 mg/dL (0-0.2); Bilirubin Total 0.8 mg/dL (0.2-1.0); Glucose Level 104 mg/dL (74-106); Lipase 133 U/L (73-393); Magnesium 2.3 mg/dL (1.8-2.4); NT PRO-BNP 197 pg/mL (<450); Potassium 4.9 mmol/L (3.5-5.1); Protein, Total 7.3 g/dL (6.4-8.2); Sodium Level 141 mmol/L (136-145); Troponin (Emerg Dept Use Only) < 0.02 ng/mL (0.0-0.045)
[2018-05-02] MEDS: METHYLPREDNISOLONE 40 MG INJ IV SCH ×2 (09:00→16:55)
[2018-05-02] MEDS ORDERED: TRAZODONE 50 MG TABLET PO ONE (09:16)
--- NOTE | 2018-05-02 09:49 | RAD REPORT ---
EXAM DESCRIPTION: Swapna Single View05/02/2018 8:20 am CLINICAL HISTORY: Cough. COMPARISON: September 2017 FINDINGS: Small left upper lobe opacity is unchanged probably representing scarring. Lungs appear clear of acute infiltrate. The heart is normal size IMPRESSION: No acute abnormalities displayed
[2018-05-02 09:50] LABS: Urine Blood 2+ (NEG); Urine Glucose NEGATIVE (NEG); Urine Protein NEGATIVE (NEG); Urine pH 5.5 (5.0-7.0)
--- NOTE | 2018-05-02 10:03 | RAD REPORT ---
EXAM DESCRIPTION: CT - Head Brain Wo Cont - 05/02/2018 9:21 am CLINICAL HISTORY: Transient alteration of awareness, history of dementia COMPARISON: August 2016 TECHNIQUE: Axial 5 mm thick images of the head were obtained without IV contrast. All CT scans are performed using dose optimization technique as appropriate and may include automated exposure control or mA/KV adjustment according to patient size. FINDINGS: No intracranial hemorrhage, mass, edema or shift of mid-line structures. No acute infarcti on changes seen. Atrophy changes are minimal and similar to 2017. Ventricles are in proportion. Mild chronic ischemic changes are present. Arterial and physiologic calcifications are present. Air-fluid level present in the right maxillary sinus which is only partially imaged. Sinus lucas are thickened and sclerotic. Mastoid air cells are clear. No acute bony findings. IMPRESSION: No acute intracranial finding. No significant atrophy and only minimal chronic ischemic change matching the comparison. Acute and chronic sinusitis in the right maxillary sinus.
[2018-05-02 10:48] LABS: Protime INR 1.13
[2018-05-02] MEDS: LEVALBUTEROL 0.63 MG/3 ML NEB NEB SCH ×2 (13:45→19:32)
[2018-05-02 14:59] VITALS: BMI 23.8
--- NOTE | 2018-05-02 17:48 | EKG ---
Test Date: 2018-05-02 Test Time: 07:12:28 Dump Grader: GISELLE MEASUREMENT RESULTS: Intervals: Rate: 68 CA: 144 QRSD: 120 QT: 394 QTc: 418 [place]: P: 76 CA: 144 QRS: 45 T: 19 INTERPRETIVE STATEMENTS: Sinus rhythm with premature atrial complexes with aberrant conduction Right bundle branch block Abnormal ECG Compared to ECG 10/19/2017 18:44:00 Atrial premature complex(es) now present Aberrant conduction of supraventricular beat(s) now present Electronically Signed On 05-02-18 17:47:30 DUCTFIXING PLUMBER by Mejia Alcaraz
[2018-05-02] MEDS: ARFORMOTEROL TARTRATE 15 MCG/2 ML VIAL.NEB IH SCH (19:32)
[2018-05-02] MEDS: SOTALOL HCL 80 MG TAB PO SCH (21:00)
[2018-05-02] MEDS: ATORVASTATIN 10 MG TAB PO SCH (21:00)
[2018-05-02] MEDS: MONTELUKAST 10 MG TAB PO SCH (21:00)
[2018-05-02] MEDS ORDERED: HOME MED 1 EA UNK (Simvastatin [Simvastatin] 20 MG) PO SCH (21:00)
[2018-05-02] MEDS ORDERED: PERFOROMIST NEB SCH (21:00)
[2018-05-02] MEDS: DONEPEZIL HCL 5 MG TAB PO SCH (21:00)
[2018-05-02] MEDS: NA CHLORIDE 0.9% 1,000 ML IV SCH (22:44)
[2018-05-03] MEDS: METHYLPREDNISOLONE 40 MG INJ IV SCH ×2 (00:07→14:13)
[2018-05-03] MEDS: LEVALBUTEROL 0.63 MG/3 ML NEB NEB SCH ×4 (01:10→20:37)
[2018-05-03 04:49] LABS: Absolute Lymphocytes (CBC) 0.9 K/uL (0.7-4.9); Absolute Monocytes 0.3 K/uL (0.1-1.3); Absolute Neutrophil 11.1 K/uL (1.8-8.0); Basophils % 0.3 % (0-1.3); MCH 31.9 pg (27.0-35.0); MCV 93.7 fL (80-100); MPV 9.3 fL (7.6-11.3); Monocytes % 2.3 % (3.3-12.3); RBC Red Blood Cell Count 4.06 M/uL (3.86-4.86)
[2018-05-03 04:57] LABS: Potassium 3.7 mmol/L (3.5-5.1)
[2018-05-03 05:17] LABS: Platelet Estimate ADEQ; Urine White Blood Cell Casts OK
[2018-05-03 05:18] LABS: Blood Morphology Comment NOT SEEN (NOT SEEN); Toxic Granulation 1+
[2018-05-03] MEDS: LEVOTHYROXINE SOD 0.1 MG TAB PO SCH (05:21)
[2018-05-03] MEDS: ARFORMOTEROL TARTRATE 15 MCG/2 ML VIAL.NEB IH SCH ×2 (07:50→20:37)
[2018-05-03] MEDS: NA CHLORIDE 0.9% 1,000 ML IV SCH ×2 (09:00→19:57)
[2018-05-03] MEDS ORDERED: HOME MED 1 EA UNK (Memantine Hcl [Memantine Hcl] 5 MG) PO SCH (09:00)
[2018-05-03] MEDS ORDERED: HOME MED 1 EA UNK (Theophylline Anhydrous [Theo-24] 200 MG) PO SCH (09:00)
[2018-05-03] MEDS ORDERED: TRAZODONE 50 MG TABLET PO ONE (10:07)
[2018-05-03] MEDS: ASPIRIN 81 MG CHEWABLE TABLET PO SCH (11:08)
[2018-05-03] MEDS: MEMANTINE HCL 10 MG TABLET PO SCH (11:09)
[2018-05-03] MEDS: SOTALOL HCL 80 MG TAB PO SCH ×2 (11:10→20:05)
[2018-05-03] MEDS: LOSARTAN POTASSIUM 50 MG TABLET PO SCH (11:10)
[2018-05-03] MEDS: BUPROPRION HCL S.R. 150MG TAB PO SCH (11:11)
[2018-05-03] MEDS: THEOPHYLLINE SR 100 MG TAB PO SCH (11:11)
[2018-05-03] MEDS ORDERED: HALOPERIDOL LACT 5 MG/ML INJ IV ONE (12:21)
[2018-05-03] MEDS ORDERED: HALOPERIDOL LACT 5 MG/ML INJ IM PRN (13:26)
[2018-05-03] MEDS ORDERED: HALOPERIDOL LACT 5 MG/ML INJ IV PRN (13:37)
[2018-05-03] MEDS: AZITHROMYCIN IV 500 MG in NA CHLORIDE 0.9% 250 ML IVPB SCH (14:13)
[2018-05-03] MEDS: CEFTRIAXONE/SWI 1gm 1 GM/10 ML SYR IV SCH (14:14)
--- NOTE | 2018-05-03 14:14 | RAD REPORT ---
EXAM DESCRIPTION: MRI - Brain Wo Cont - 05/03/2018 1:56 pm CLINICAL HISTORY: AMS, altered speech r/out CVA Drowsiness COMPARISON: Head Brain Wo Cont dated 05/02/2018; Brain Wo Cont dated 01/27/2018 TECHNIQUE: Multi-sequence, multiplanar MR imaging of the brain was performed without contrast. FINDINGS: Examination is moderately motion degraded, limiting diagnostic quality. No gross evidence of intracranial hemorrhage, hydrocephalus or extra-axial fluid collections. No santino a or shift of midline structures. No findings to suspect brain mass. DWI is negative for acute CVA. Midline structures are normally formed. Mild fluid is seen in the right maxillary antrum. IMPRESSION: Motion degraded study is submitted, however within this limitation there is no evidence of acute finding such as acute CVA, bleed or midline shift.
[2018-05-03] MEDS: predniSONE 20 MG TAB PO SCH ×2 (15:00→20:06)
--- NOTE | 2018-05-03 17:29 | PN ---
Date of Progress Note: 05/03/2018 Subjective: The patient is seen and examined. Chart reviewed and case discussed with RN and Dr. Salas. The patient's family at the bedside. They state that the patient's speech is not at her baseline as well as her mental status due to the confusion. The patient has been combative and agitated. Medications: List reviewed. Physical Examination: Vital Signs: Temperature 99.1, heart rate 84, blood pressure 140/63, respirations 16, O2 97% on room air. General: Awake, alert, oriented to self and place only. Agitated elderly female. CV: S1, S2. Regular rate and rhythm. Peripheral pulses present. Respiratory: Moving air well bilaterally. No wheezing. Gastrointestinal: Abdomen is soft, nontender, nondistended. Positive bowel sounds. Extremities: No clubbing, cyanosis, or edema. Neuro: Cranial nerves 2 through 12 intact grossly. No focal neurological deficit. Speech is somewhat dysarthric. Laboratory Data: Sodium 142, potassium 3.7, chloride 111, CO2 25, BUN 14, creatinine 0.7, glucose 147, calcium 8.4. WBC 12.3, hemoglobin and hematocrit 12.9 and 38, platelets 193, neutrophils 90%. Blood cultures pending. Assessment: A 77-year-old female with: 1. Acute chronic obstructive pulmonary disease exacerbation. We will wean steroids, prophylactic antibiotics for bronchitis. We will continue to monitor respiratory status. Continue nebulizer treatments. 2. Congestive heart failure. EF from 2016 shows 55%, diastolic dysfunction, compensated. Continue to monitor. 3. Essential hypertension, stable. Resume home medications as appropriate. 4. Atrial fibrillation, on rate control, not on any chronic anticoagulation. Continue to monitor on telemetry. 5. Hypothyroidism. Continue replacement therapy. 6. Alzheimer dementia, early onset with behavioral disturbance. We will continue the donepezil and memantine. 7. Mixed hyperlipidemia. Continue statin. 8. Depression with anxiety, stable. 9. Dysarthria Plan: 1. GI and DVT prophylaxis addressed. Obtain MRI brain to rule out CVA. Neuro consult. Pt sees Dr. Salas as outpt. SA/MODL Voice ID: [id number] Report ID: [id number] [facility]
[2018-05-03] MEDS: MONTELUKAST 10 MG TAB PO SCH (20:05)
[2018-05-03] MEDS: ATORVASTATIN 10 MG TAB PO SCH (20:05)
[2018-05-03] MEDS: DONEPEZIL HCL 5 MG TAB PO SCH (20:06)
[2018-05-04] MEDS: LEVALBUTEROL 0.63 MG/3 ML NEB NEB SCH ×4 (02:35→19:40)
[2018-05-04] MEDS: NA CHLORIDE 0.9% 1,000 ML IV SCH ×2 (04:02→14:57)
[2018-05-04 04:23] LABS: Absolute Lymphocytes (CBC) 1.1 K/uL (0.7-4.9); Absolute Monocytes 0.6 K/uL (0.1-1.3); Basophils % 0.6 % (0-1.3); Hematocrit 35.7 % (36.0-45.0); Lymphocytes % 7.9 % (15.3-44.8); MCV 92.6 fL (80-100); MPV 9.2 fL (7.6-11.3); Monocytes % 4.4 % (3.3-12.3); RBC Red Blood Cell Count 3.85 M/uL (3.86-4.86)
[2018-05-04 04:36] LABS: Potassium 4.1 mmol/L (3.5-5.1)
[2018-05-04] MEDS: LEVOTHYROXINE SOD 0.1 MG TAB PO SCH (05:45)
--- NOTE | 2018-05-04 08:14 | HP ---
Date of Admission: 05/02/2018 Code Status: Do not resuscitate. Chief Complaint: Shortness of breath, altered mental status. 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 Caregiver states that the patient has some decreased level of mentation, also having some shortness of breath and cough along with some low-grade fever. Denies any ill contacts. No chest pain, palpitation, nausea, or vomiting. The patient was then brought into the ER for further evaluation. Her symptoms are constant, moderate, and [place] [id number]. Procalcitonin and lactate were negative. UA did not show any UTI. Imaging studies: Chest x-ray personally reviewed, shows no acute abnormalities. The patient then referred for admission for altered mental status and COPD. When seen in the ER she was awake, alert, oriented x3 asking to go home. However, she is not completely oriented and not in her baseline state of mentation. Past Medical History: COPD oxygen and steroid dependent, CHF, hypertension, atrial fibrillation, hypothyroidism, dementia, hyperlipidemia, tobacco abuse, depression with anxiety. Past Surgical History: Hysterectomy, cholecystectomy, cardiac cath, bilateral cataract surgery, appendectomy. Allergies: TO ADHESIVE TAPE. Medications: List reviewed. Social History: The patient is , has a daughter, is retired. Lives at home by herself with 24-hour caregivers. Family History: Father had heart disease and esophageal cancer. Mother had heart disease, hypertension stable, developed blood clot during heart surgery and . Brother has diabetes, cancer, liver disease, specifically liver cancer. Review of Systems: An 11-point system reviewed, negative except as per HPI. Physical Examination: Vital signs: Temperature 101, heart rate 68, blood pressure 135/67, respirations 24, O2 100% on room air. General: Awake, alert, oriented x3, some mild distress, ill-appearing elderly female. HEENT: Normocephalic, atraumatic. PERRLA. EOMI. Moist mucous membranes. Oropharynx is clear. Conjunctivae anicteric. Neck: Supple. No JVD. Trachea midline. CV: S1, S2 present. Peripheral pulses are present. Respiratory: Moving air well bilaterally. No wheezing or stridor. No use of accessory muscles. Gastrointestinal: Abdomen is soft, nontender, nondistended. Positive bowel sounds. No guarding or rigidity. Extremities: No clubbing, cyanosis, or edema. No calf tenderness. Neuro: Cranial nerves 2 through 12 intact grossly. No focal neurological deficit. Speech is somewhat dysarthric. Skin: No rashes. Normal skin turgor. Laboratory Data: UA negative. Sodium 141, potassium 4.9, chloride 104, CO2 26 , BUN 15, creatinine 1.9, glucose 104, lactate 1.3, calcium 8.4, magnesium 2.3, albumin 3.3. Procalcitonin 0.05. INR 1.13. WBC 15, H and H 14.6, platelets 189, neutrophils 10.5%. Blood cultures and urine cultures pending. Imaging Studies: Chest x-ray shows no acute abnormality. Head CT shows no acute intracranial finding. No significant atrophy and only minimal chronic ischemic changes, acute on chronic sinusitis in the right maxillary sinus. Assessment: A 77-year-old female with: 1. Acute chronic obstructive pulmonary disease exacerbation. We will continue with IV steroids, prophylactic antibiotics for bronchitis. We will continue to monitor respiratory status. Continue nebulizer treatments. 2. Congestive heart failure. EF from 2016 shows 55%, diastolic dysfunction, compensated. Continue to monitor. 3. Essential hypertension, stable. Resume home medications as appropriate. 4. Atrial fibrillation, on rate control, not on any chronic anticoagulation. Continue to monitor on telemetry. 5. Hypothyroidism. Continue replacement therapy. 6. Alzheimer dementia, early onset with behavioral disturbance. We will continue the donepezil and memantine. 7. Mixed hyperlipidemia. Continue statin. 8. Depression with anxiety, stable. Plan: 1. GI and DVT prophylaxis addressed. 2. Admit patient to Med-Surg, place as inpatient. Length of stay greater than 2 midnights. 3. We will continue to monitor breathing status. Continue nebulizer treatments and treat COPD conservatively. TAYLER Voice ID: [id number] PRICILA
--- NOTE | 2018-05-04 08:17 | CON ---
Reason: Confusion. History: This is a 77-year-old lady with a history of Alzheimer disease who was brought to the [facility] with worsening confusion and gait disturbance, history of atrial fibrillation and COPD. There wa s a concern for stroke but CT was negative and subsequently a brain MRI which is not of superior qual ity but is diagnostic does not demonstrate any evidence of an acute infarction. The patient has mode rate to advanced Alzheimer disease. It is challenging case, but she does have 24-hour care at home. Her daughter is quite attentive to the problem. The patient does not want to be in a custodial. She is on Aricept and Namenda for the dementia. We will review her medications in the office as it seems that she should also additionally be on Remeron as she has prominent sleeping issues. She is b eing treated with some ceftriaxone. In the emergency department white cell count was 15,000. The ab normality improving, it is down to 12.3 today. She did have slight fever initially, it is improved p resently. T-max 101 yesterday morning. Consultation was requested. Past Medical History: Dementia, history of atrial fibrillation, hypothyroidism, COPD. Medications: Normally sotalol, prednisone, Synthroid, vitamin D, Namenda, simvastatin, Singulair, Co zaar, bupropion, aspirin, Aricept 10. Allergies: ADHESIVE TAPE. Social History: The patient has 24-hour supervision. She does not drive. She is normally ambulator y. Review of Systems: General: Chronically ill. Eyes: Negative. Ears, Nose, Throat: Family felt like there was some worsening dysarthria. Cardiovascular: As alluded to. Pulmonary: COPD. GI: Negative. : Negative. Musculoskeletal: Negative. Neurologic: As noted. Psychiatric: Behavioral difficulties. Endocrine: Hypothyroidism. Physical Examination: Vital Signs: 98.8, 64, 16, 169/60. General: Pleasant lady lying in bed, in no distress. She is awake. She knows her name. She follow s simple commands. She is not agitated or combative presently. Pupils reactive. HEENT: Ocular mot ion full. [place] full. Neck: Supple. Extremities: Examination of her extremities reveals 4+ strength throughout. Sensation intact. Refl exes 1/4. Toes were downgoing. Pertinent Labs: MRI as noted. Urinalysis 2+ blood, otherwise normal. Creatinine 0.7. Glucose 147. Procalcitonin less than 0.05. White count 12.3 today. Impression: Alzheimer disease, delirium. Plan: Fortunately no evidence for a new infarct. Prior EEGs have been unremarkable as well. Contin ue IV antibiotics and general supportive care. We will again review her outpatient medication list a nd make adjustments as needed to her inpatient medications. Thank you for the consult. We will continue to follow with you. FERNANDEZ Voice ID: [id number] Report ID: [id number]
[2018-05-04] MEDS: ARFORMOTEROL TARTRATE 15 MCG/2 ML VIAL.NEB IH SCH ×2 (08:20→19:39)
[2018-05-04] MEDS: SOTALOL HCL 80 MG TAB PO SCH ×2 (09:20→20:13)
[2018-05-04] MEDS: predniSONE 20 MG TAB PO SCH (09:20)
[2018-05-04] MEDS: MEMANTINE HCL 10 MG TABLET PO SCH (09:20)
[2018-05-04] MEDS: ASPIRIN 81 MG CHEWABLE TABLET PO SCH (09:20)
[2018-05-04] MEDS: BUPROPRION HCL S.R. 150MG TAB PO SCH (09:21)
[2018-05-04] MEDS: CEFTRIAXONE/SWI 1gm 1 GM/10 ML SYR IV SCH (09:21)
[2018-05-04] MEDS: THEOPHYLLINE SR 100 MG TAB PO SCH (09:21)
[2018-05-04] MEDS: LOSARTAN POTASSIUM 50 MG TABLET PO SCH (09:21)
[2018-05-04] MEDS: AZITHROMYCIN IV 500 MG in NA CHLORIDE 0.9% 250 ML IVPB SCH (09:22)
[2018-05-04 12:33] LABS: Urine Appearance CLEAR; Urine Bilirubin NEGATIVE (NEG); Urine Blood NEGATIVE (NEG); Urine Color YELLOW; Urine Glucose NEGATIVE (NEG); Urine Protein NEGATIVE (NEG); Urine Urobilinogen 0.2 mg/dL (0.2-1.0); Urine pH 6.5 (5.0-7.0)
[2018-05-04 12:37] LABS: Urine Microscopic Reflex NO UMIC
[2018-05-04] MEDS: HYDRALAZINE HCL 20 MG/ML VIAL IV PRN (16:52)
[2018-05-04] MEDS: ATORVASTATIN 10 MG TAB PO SCH (20:13)
[2018-05-04] MEDS: MONTELUKAST 10 MG TAB PO SCH (20:13)
[2018-05-04] MEDS: DONEPEZIL HCL 5 MG TAB PO SCH (20:13)
--- NOTE | 2018-05-04 20:19 | PN ---
Date of Progress Note: 05/04/2018 Subjective: Patient was seen and examined. Chart reviewed and case discussed with RN. The patient did well overnight, eating and drinking well. Did have some agitation, however has been much more im proved since yesterday after MRI. The patient was seen by her neurologist, Dr. Salas. MRI was negat na for acute stroke. Caregivers at the bedside. Medications: List reviewed. Physical Examination: Vital Signs: Temperature 98.3, heart rate 48, blood pressure 169/75, respirations 18, O2 98% on 2 L via nasal cannula. General: Awake, alert, oriented x1. No acute distress. Elderly female. CV: S1, S2. No murmurs. Regular rate and rhythm. Peripheral pulses present. Respiratory: Moving air well bilaterally. No wheezing or stridor. Gastrointestinal: Abdomen is soft, nontender, nondistended. Positive bowel sounds. Extremities: No clubbing, cyanosis, edema. Neurologic: Nonfocal. Laboratory Data: Sodium 143, potassium 4.1, chloride 111, CO2 26, BUN 16, creatinine 0.8, glucose 13 0, calcium 8. WBC 13.7, H and H 12.3 and 35.7, platelets 216, neutrophils 87%. Blood cultures, no g rowth to date. Urine cultures, pending. Imaging Data: MRI of the brain motion degraded study submitted, however, within this limitation, the re is no evidence of acute finding such as acute CVA, bleed, or midline shift. Assessment And Plan: A 77-year-old female with, 1.Acute chronic obstructive pulmonary disease exacerbation. We will continue with IV steroids and p rophylactic antibiotics for bronchitis and continue to monitor respiratory status. The patient is do ing better. 2.Congestive heart failure with diastolic dysfunction, chronic. Ejection fraction is 55%. 3.Essential hypertension, stable. 4.Acute agitation, likely due to worsening dementia. 5.Alzheimer dementia, early onset with behavioral disturbance. Continue donepezil and memantine. 6.Atrial fibrillation, rate controlled, currently sinus rhythm, not on any chronic anticoagulation. 7.Mixed hyperlipidemia. Continue statin. 8.Depression and anxiety, stable. 9.Gastrointestinal and deep venous thrombosis prophylaxis addressed. MRI of the brain is negative. Appreciate Dr. Salas's input. He does not feel that the patient has any seizure focus. Recent EEGs were also normal. The patient does have elevated white count. However, has been afebrile for appro ximately greater than 24 hours. We will continue with supportive care. We will likely discharge her back home, as she does have caregivers 13/12, once cleared by Neurology and once the patient is back to her baseline. We will continue to monitor blood cultures; no growth to date. TAYLER Voice ID: [id number] Report ID: [id number]
[2018-05-04] MEDS ORDERED: THIAMINE 200 MG/2 ML INJ IVP ONE (22:00)
[2018-05-05] MEDS: NA CHLORIDE 0.9% 1,000 ML IV SCH ×3 (01:09→12:52)
[2018-05-05] MEDS: LEVALBUTEROL 0.63 MG/3 ML NEB NEB SCH ×3 (01:21→13:00)
--- NOTE | 2018-05-05 02:59 | PN ---
Reason: Delirium, dementia. Interval History: The patient was drowsy this morning. She is still sleepy now, but arousable and f ollows commands. She is normally quite a bit more active than she has been here. UA is normal. Fev er is gone. White count still slightly elevated at 13.7. The patient may have a viral infection to account for the decompensation in both mental as well as physical status. We will check a flu screen and begin to administer IV thiamine. Reviewed with daughter at length this evening as well consult Physical Therapy. Objective: On exam, the patient is confused, but not combative. Knows her name. Follows simple com mands. Pupils reactive. Ocular motion full. Blinks to threat. Strength greater than 4+. Reflexes symmetric. Not ambulating presently. Impression: Alzheimer disease, delirium. Plan: As alluded to. Check influenza screen. IV thiamine. Physical Therapy evaluation. The patie nt has been very clear in the past that she does not want to go to a long term. We will continue to follow with you. FERNANDEZ Voice ID: [id number] Report ID: [id number]
[2018-05-05 04:45] LABS: Absolute Lymphocytes (CBC) 1.8 K/uL (0.7-4.9); Absolute Monocytes 0.8 K/uL (0.1-1.3); Absolute Neutrophil 7.3 K/uL (1.8-8.0); Basophils % 0.8 % (0-1.3); Eosinophils % 0.4 % (0-4.4); Hematocrit 43.1 % (36.0-45.0); Lymphocytes % 17.8 % (15.3-44.8); MCV 94.3 fL (80-100); MPV 9.6 fL (7.6-11.3); RBC Red Blood Cell Count 4.57 M/uL (3.86-4.86)
[2018-05-05] MEDS: HYDRALAZINE HCL 20 MG/ML VIAL IV PRN (04:51)
[2018-05-05] MEDS: LEVOTHYROXINE SOD 0.1 MG TAB PO SCH (05:00)
[2018-05-05 05:01] VITALS: O2SAT 98
[2018-05-05 05:25] LABS: Potassium 3.6 mmol/L (3.5-5.1)
[2018-05-05] MEDS: IPRATROPIUM BROM 0.5MG/2.5ML NEB PRN ×2 (05:30→13:00)
--- NOTE | 2018-05-05 07:21 | RAD REPORT ---
EXAM DESCRIPTION: RAD - Chest Single View - 05/05/2018 6:14 am CLINICAL HISTORY: Pneumonia, shortness of breath COMPARISON: May 02 TECHNIQUE: AP portable chest image was obtained [id number] hours . FINDINGS: Chronic interstitial lung changes are present. Focal scarring seen in the left upper lung field. No dense consolidation seen. Medial right lung base markings have increased with the medial ri ght hemidiaphragm partially obscured. No failure or volume overload. Heart and vasculature are normal . No measurable pleural effusion and no pneumothorax. No acute bony abnormality seen. No acute aortic findings suspected. IMPRESSION: Minimal infiltrate in the medial right lung base superimposed on chronic interstitial harjinder ng disease.
[2018-05-05] MEDS ORDERED: THIAMINE 200 MG/2 ML INJ IVP SCH (09:00)
[2018-05-05] MEDS ORDERED: predniSONE 20 MG TAB PO SCH (09:00)
[2018-05-05] MEDS: ARFORMOTEROL TARTRATE 15 MCG/2 ML VIAL.NEB IH SCH (09:01)
[2018-05-05] MEDS: CEFTRIAXONE/SWI 1gm 1 GM/10 ML SYR IV SCH (09:38)
[2018-05-05] MEDS: AZITHROMYCIN IV 500 MG in NA CHLORIDE 0.9% 250 ML IVPB SCH (09:38)
[2018-05-05] MEDS: THEOPHYLLINE SR 100 MG TAB PO SCH (09:38)
[2018-05-05] MEDS: ASPIRIN 81 MG CHEWABLE TABLET PO SCH (09:39)
[2018-05-05] MEDS: MEMANTINE HCL 10 MG TABLET PO SCH (09:39)
[2018-05-05] MEDS: BUPROPRION HCL S.R. 150MG TAB PO SCH (09:40)
[2018-05-05] MEDS: LOSARTAN POTASSIUM 50 MG TABLET PO SCH (09:40)
[2018-05-05] MEDS: SOTALOL HCL 80 MG TAB PO SCH (09:41)
[2018-05-05 14:06] VITALS: BP 140/69; TEMP 99.4
--- NOTE | 2018-05-06 11:25 | DS ---
Date of Discharge: 05/05/2018 Consultants: Dr. Salas with Neurology. Admitting Diagnoses: 1. Acute chronic obstructive pulmonary disease exacerbation. 2. Altered mental status. 3. Congestive heart failure with diastolic dysfunction, chronic EF 55%. 4. Essential hypertension, stable. 5. Atrial fibrillation, rate controlled; not on any chronic anticoagulation. 6. Hypothyroidism. 7. Alzheimer dementia, early onset with behavioral disturbance. 8. Mixed hyperlipidemia. 9. Depression with anxiety. Discharge Diagnoses: 1. Acute chronic obstructive pulmonary disease exacerbation, resolved. 2. Congestive heart failure with diastolic dysfunction, chronic EF 55%. 3. Essential hypertension, stable. 4. Acute agitation due to worsening dementia. 5. Alzheimer dementia, early onset with behavioral disturbance. 6. Atrial fibrillation, rate controlled; not on any chronic anticoagulation. 7. Acute bronchitis, early, developing right lower lobe pneumonia. 8. Mixed hyperlipidemia. 9. Depression with anxiety. Hospital Course: The patient is a 77-year-old female, who has 24-hour caregivers with history of COPD, oxygen-dependent and steroid-dependent; congestive heart failure; hypertension; atrial fibrillation; hypothyroidism; dementia; hyperlipidemia, who comes in with shortness of breath and altered mental status. Workup did not reveal any UTI. She did feel as if she had bronchitis. She had an elevated white blood cell count. She was started on antibiotics and nebulizer treatments. She was also given IV steroids. The patient did have some changes in her mental status worsened despite her dementia , therefore workup including MRI of the brain was done, which was negative for any acute CVA. Head CT scan done in the ER was also negative. The patient was seen by Dr. Salas with Neurology, who evaluated the patient. She was started on IV thiamine. The patient's white blood cell count normalized. Her steroids were weaned off. The patient's agitation improved significantly. Her chest x- ray did show some right lower lobe infiltrate. The patient's blood cultures were negative. Her influenza screen was negative as well. The patient was doing better. She was able to ambulate with minimal assistance. She does have 24-hour caregivers at home. Daughter asked for hospital bed upon discharge. The patient, otherwise was doing well. No signs of sepsis, was alert and oriented at least to herself, following commands, not agitated, able to get up and ambulate with minimal assistance, not short of breath with exertion. The patient was then cleared for discharge from lean consultant's standpoint. She was sent home with home health care and PT in a fair condition. Activity: Fall precautions. Medications: As per medication reconciliation list. Followup: Follow up with primary care physician in 2-3 days. Follow up with neurologist, Dr. Salas, in 2 weeks. Return to ER for worsening condition. Diet: Heart healthy. Physical Examination: General: Awake, alert, oriented to self, not in any acute distress. Elderly female. CV: S1, S2. Peripheral pulses present. Respiratory: Moving air well bilaterally with some diminished breath sounds at the right base. Extremities: No clubbing, cyanosis, or edema. GI: Soft, nontender, nondistended. Positive bowel sounds. Neurologic: Nonfocal. Time spent discharging patient was 39 minutes. TAYLER Voice ID: [id number] Report ID: [id number] PRICILA
== END 2018-05-05 16:06 | disposition home health service (06) | DRG 190 ==
LOC: ER 06:38 → ERHOLD 08:22 → 4TH 09:35
PROVIDERS: ADMIT Family Medicine; ATTEND Family Medicine
DX: J44.1 Chronic obstructive pulmonary disease with (acute) exacerbation (principal); J18.9 Pneumonia, unspecified organism; I50.32 Chronic diastolic (congestive) heart failure; F02.81 Dementia in other diseases classified elsewhere, unspecified severity, with behavioral disturbance; F05 Delirium due to known physiological condition; J44.0 Chronic obstructive pulmonary disease with (acute) lower respiratory infection; J20.9 Acute bronchitis, unspecified; I11.0 Hypertensive heart disease with heart failure; R45.1 Restlessness and agitation; G30.0 Alzheimer's disease with early onset; I48.91 Unspecified atrial fibrillation; E78.2 Mixed hyperlipidemia; F32.9 Major depressive disorder, single episode, unspecified; F41.9 Anxiety disorder, unspecified; Z99.81 Dependence on supplemental oxygen; Z79.51 Long term (current) use of inhaled steroids; E03.9 Hypothyroidism, unspecified; R26.9 Unspecified abnormalities of gait and mobility; Z66 Do not resuscitate; Z87.891 Personal history of nicotine dependence
CPT/HCPCS: 36415; 51702; 70450; 70551; 71045; 80048; 80076; 81003; 83605; 83690; 83735; 83880; 84145; 84484; 85025; 85610; 87040; 87086; 87088; 87804; 93005; 94640; 94760; 96365; 96367; 96375; 97163; 99285; J0360; J0456; J0696; J1630; J2920; J2930; J3411; J7030; J7512; J7605

== ENCOUNTER 2018-05-22 14:09 | Inpatient (IN) | payer OTHER ==
--- OUTSIDE RECORDS SUMMARY | 2018-05-22 14:12 | XMS REPORT | Continuity of Care Document ---
[...] outpatient 15 [facility] [place] [facility] [place] Active Finding 08/08/[address] [facility] - [...] Last Comments Source Updated Pneumovax 04/18/[address] [facility] [place] Results Order Name Results Value Reference Date Interpretation Comments Source Range Laboratory Creatine 1.9 ng/ml 0.3 - 4.0 08/08 [facility] Kinase MB /2017 [facility] [place] Laboratory Creatine 49 IU/L 22 - 269 08/08 [facility] Kinase /2017 [facility] [place] [facility] Troponin I null 08/08 [facility] /2017 [facility] [place] [facility] Triglycerides 88 mg/dL 35 - 160 08/08 [facility] Level /2017 [facility] [place] [facility] Sodium Level 140 mEq/L 135 - 145 08/08 [facility] [address] Studies /2017 [facility] [place] [facility] Potassium 4.8 mEq/L 3.6 - 5.0 08/08 [facility] [address] Level /2017 [facility] [place] [facility] Magnesium 2.1 mg/dL 1.8 - 2.5 08/08 [facility] Level /2017 [facility] [place] [facility] LDL 66 08/08 [facility] Cholesterol, /2017 [facility] Calculated [place] [facility] HDL 88 mg/dL 29 - 89 08/08 [facility] [address] Studies Cholesterol /2017 [facility] [place] [facility] Glucose Level 138 mg/dL 65 - 120 08/[address] [facility] [address] Studies /2018 [facility] [place] [facility] Estimat 56 mL/min 90 08/08 [facility] Glomerular /2017 [facility] Filtration [place] Rate Laboratory Creatinine 0.97 mg/dL 0.44 - 08/08 [facility] [address] Studies 1.00 [facility] [place] Laboratory Cholesterol/H 1.95 08/08 [facility] DL Ratio /2017 [facility] [place] [facility] Cholesterol 172 mg/dL 08/[address] [facility] [address] Studies Level /2017 [facility] [place] [facility] Chloride 107 mEq/L 101 - 111 08/[address] [facility] [address] Studies Level /2018 [facility] [place] [facility] Carbon 29 mEq/L 21 - 31 08/08 [facility] Dioxide Level /2017 [facility] [place] Laboratory Calcium Level 9.5 mg/dL 8.5 - 10.5 08/08 [facility] [address] Studies /2017 [facility] [place] [facility] Blood Urea 18 mg/dL 6 - 20 08/08 [facility] [address] Studies Nitrogen /2017 [facility] [place] Laboratory White Blood 12.3 K/uL 4.3 - 10.9 08/08 [facility] [address] Studies Count /2017 [facility] [place] Laboratory Red Cell 13.4 % 12.1 - 08/08 [facility] [address] Studies Distribution 15.2 [facility] Width [place] [facility] Red Blood 4.25 M/uL 3.86 - 08/[address] [facility] [address] Studies Count 4.86 [facility] [place] [facility] Platelet 289 K/uL 152 - 406 08/08 [facility] [address] Count /2017 [facility] [place] [facility] Neutrophils % 80.3 % 41.7 - 08/08 [facility] Studies 73.7 /2017 [facility] [place] [facility] Monocytes % 3.7 % 3.3 - 12.3 08/08 [facility] [address] Studies /2017 [facility] [place] [facility] Mean Platelet 9.4 fL 7.6 - 11.3 08/08 [facility] [address] Studies Volume /2017 [facility] [place] [facility] Mean 94.0 fL 80 - 100 08/08 [facility] Corpuscular /2017 [facility] Volume [place] [facility] Mean 33.3 g/dL 32.0 - 08/08 [facility] Studies Corpuscular 36.0 [facility] Hemoglobin [place] Concent Laboratory Mean 31.3 pg 27.0 - 08/08 [facility] Corpuscular 35.0 [facility] Hemoglobin [place] [facility] Lymphocytes % 15.1 % 15.3 - 08/08 [facility] Studies 44.8 /2017 [facility] [place] [facility] Hemoglobin 13.3 g/dL 12.0 - 08/08 [facility] Studies 15.0 /2017 [facility] [place] [facility] Hematocrit 39.9 % 36.0 - 08/08 [facility] Studies 45.0 [facility] [place] [facility] Eosinophils % 0.2 % 0 - 4.4 08/08 [facility] Studies /2017 [facility] [place] [facility] Basophils % 0.7 % 0 - 1.3 08/08 [facility] Studies /2017 [facility] [place] [facility] Absolute 9.9 K/uL 1.8 - 8.0 08/08 [facility] Studies Neutrophil /2017 [facility] [place] [facility] Absolute 0.5 K/uL 0.1 - 1.3 08/08 [facility] Studies Monocytes /2017 [facility] (CBC) [place] [facility] Absolute 1.9 K/uL 0.7 - 4.9 08/08 [facility] Studies Lymphocytes /2017 [facility] (CBC) [place] [facility] Absolute 0.0 K/uL 0 - 0.5 08/08 St[facility] Eosinophils [facility] - (CBC) [place] [facility] Absolute 0.1 K/uL 0 - 0.5 08/08 [facility] Studies Basophils [facility] - (CBC) [place] [facility] Thyroid 0.07 uIU/mL 0.34 - 08/07 [facility] Studies Stimulating 5.60 [facility] - Hormone (TSH) [place] [facility] Urine pH 7.0 08/07 [facility] [address] [place] [facility] Urine Total Urine Total 08/07 [facility] Studies Protein Protein [facility] [place] [facility] Urine 1.025 08/07 [facility] Studies Specific [facility] - [place] [facility] Urine Nitrite Urine 08/07 [facility] Studies Nitrite [facility] [place] [facility] Urine Urine 08/07 [facility] Leukocyte Leukocyte [facility] Esterase Esterase [place] [facility] Urine Ketones Urine 08/07 [facility] Studies Ketones [facility] [place] [facility] Urine Glucose Urine 08/07 [facility] Studies Glucose [facility] [place] [facility] Urine Blood Urine Blood 08/07 [facility] [address] [place] [facility] B-Type 107 pg/ml 08/07 [facility] Studies Natriuretic [facility] Peptide [place] [facility] Total 0.8 mg/dL 0.3 - 1.2 08/07 [facility] Studies Bilirubin [facility] [place] [facility] Serum Total 7.0 g/dL 6.0 - 8.3 08/07 [facility] Studies Protein [facility] [place] [facility] Globulin 3.0 g/dL 2.3 - 3.5 08/07 [facility] [place] [facility] Direct 0.1 mg/dL 0 - 0.2 08/07 [facility] Studies Bilirubin [facility] [place] [facility] Aspartate 23 IU/L 10 - 42 08/07 [facility] Studies Amino Transf [facility] - (AST/SGOT) [place] [facility] Alkaline 59 IU/L 42 - 121 08/07 [facility] Studies Phosphatase [facility] [place] [facility] Albumin/Globu 1.3 1.1 - 1.8 08/07 [facility] robby Ratio /2017 [facility] [place] [facility] Albumin 4.0 g/dL 3.2 - 5.5 08/07 [facility] Studies /2017 [facility] [place] [facility] Alanine 10 IU/L 10 - 60 08/07 [facility] Aminotransfer /2017 [facility] ase [place] (ALT/SGPT) Laboratory Rapid null 08/07 [facility] Troponin I /2017 [facility] [place] Laboratory Lipase 29 U/L 22 - 51 08/07 [facility] [address] Studies /2017 [facility] [place] Laboratory Prothrombin 11.1 9.5 - 12.5 08/07 [facility] Time SECONDS /2017 [facility] [place] [facility] INR 0.94 08/07 [facility] Studies International /2017 [facility] Normalized [place] Ratio Laboratory Activated 24.2 24.3 - 08/07 [facility] Partial SECONDS 36.9 [facility] Thromboplast [place] Time Laboratory Phosphorus 4.5 mg/dL 2.5 - 4.3 06/03 [facility] Level /2017 [facility] [place] [facility] Urine WBC null 06/01 [facility] [address] [place] [facility] Urine 0.2 mg/dL 06/01 [facility] Urobilinogen /2017 [facility] [place] [facility] Urine Urine 06/01 [facility] Squamous Squamous /2017 [facility] Epithelial Epithelial [place] Cells Cells Laboratory Urine RBC null 06/[address] [facility] [place] [facility] Urine Culture Urine 06/01 [facility] Reflexed Culture /2017 [facility] Reflexed [place] Laboratory Urine Color Urine Color 06/[address] [facility] Studies /2018 [facility] [place] Laboratory Urine Urine 06/01 [facility] Bilirubin Bilirubin /2017 [facility] [place] [facility] Urine null 06/01 [facility] Bacteria /2017 [facility] [place] [facility] Urine Urine 06/01 [facility] Appearance Appearance /2017 [facility] [place] Laboratory Procalcitonin null 05/31 [facility] [place] Vital Signs Vital Sign Value Date Comments Source Temperature Oral (F) 97.9 F 08/08/2017 [facility] [place] Heart Rate 63 08/08/2017 [facility] [place] Respitory Rate 17 08/08/[address] [facility] [place] Systolic (mm Hg) 152 08/08/[address] [facility] [place] Diastolic (mm Hg) 73 08/08/[address] [facility] [place] Height 64 08/07/[address] [facility] [place] Weight 125 08/07/[address] [facility] [place] Encounters Location Location Encounter Encounter Reason Attending ADM DC Status Source Details Type Number For Provider Date Date Visit [id number] 05/29 05/[facility] [place] [facility] [id number] 05[facility]30 05/[address] [facility] [place] [facility] St[facility] Discharged [id number] 05/31 06/03 [facility] [place] [place] [facility] St[facility] Registered [id number] 07/[address] [facility] [place] [facility] St[facility] Discharged [id number] 08/07 08/[address] [facility] [place] Procedures Procedure Code Date Perfomer Comments Source [id number] [facility] [place] [facility] [id number] [facility] [place] Chest Single [id number] [facility] View 8 [place] [facility] B Antigen 8 [place] Screen Influenza Type [facility] Antigen 8 [place] Screen Anaerobic [facility] Culture [facility] [place] [facility] Culture 8 [place] Thorax Wo Con [id number] [facility] [place] [facility] Single [id number] [facility] View [address] [place] [id number] [facility] - 8 [place] Count [id number] [facility] - 8 [place] Chest Single [id number] [facility] - View 8 [place] Anaerobic Blood [id number] [facility] - Culture 8 [place] Aerobic Blood [id number] [facility] - Culture 8 [place] Chest Pa And [id number] [facility] - Lat (2 Views) 8 [place] Anaerobic Blood [id number] [facility] Culture 8 [place] Aerobic Blood [id number] [facility] Culture 8 [place] Chest Single [id number] [facility] - View 8 [place] Influenza Type [facility] - B Antigen 8 [place] Screen Influenza Type [facility] - A Antigen 8 [place] Screen
[2018-05-22] MEDS ORDERED: ACETAMINOPHEN 325 MG TABLET ONE (14:54)
[2018-05-22] MEDS ORDERED: NA CHLORIDE 0.9% 500 ML ONE (14:54)
[2018-05-22 14:55] LABS: Absolute Neutrophil 7.2 K/uL (1.8-8.0); Basophils % 0.4 % (0-1.3); Eosinophils % 0.1 % (0-4.4); Hematocrit 42.2 % (36.0-45.0); MPV 8.9 fL (7.6-11.3); Monocytes % 10.4 % (3.3-12.3); RBC Red Blood Cell Count 4.52 M/uL (3.86-4.86)
[2018-05-22 15:13] LABS: ALT/SGPT 17 U/L (12-78); AST/SGOT 26 U/L (15-37); Albumin 3.3 g/dL (3.4-5.0); Alkaline Phosphatase 65 U/L (45-117); BUN Blood Urea Nitrogen 15 mg/dL (7-18); Bicarbonate 28 mmol/L (21-32); Bilirubin Direct 0.2 mg/dL (0-0.2); Bilirubin Total 0.6 mg/dL (0.2-1.0); Glucose Level 98 mg/dL (74-106); Lipase 285 U/L (73-393); Potassium 4.2 mmol/L (3.5-5.1); Protein, Total 6.9 g/dL (6.4-8.2); Sodium Level 139 mmol/L (136-145); Troponin (Emerg Dept Use Only) < 0.02 ng/mL (0.0-0.045)
--- NOTE | 2018-05-22 15:45 | RAD REPORT ---
EXAM DESCRIPTION: RAD - Chest Single View - 05/22/2018 2:50 pm CLINICAL HISTORY: Shortness of breath COMPARISON: May 05 TECHNIQUE: AP portable chest image was obtained 1443 hours . FINDINGS: Fibrotic lung pattern is not clearly different from comparison. No new or progressive lung parenchymal process. Heart and vasculature are normal. No measurable pleural effusion and no pneumot horax. No acute bony abnormality seen. No acute aortic findings suspected. IMPRESSION: Chronic interstitial lung disease with no new or progressive finding since May 05.
[2018-05-22 16:37] LABS: Urine Bacteria <20 /HPF (<20)
[2018-05-22 16:38] LABS: Urine Culture Reflex Order NOT NEEDED
[2018-05-22 16:38] LABS: Urine Blood 1+ (NEG); Urine Glucose NEGATIVE (NEG); Urine Protein NEGATIVE (NEG); Urine Specific Gravity 1.025 (1.005-1.030); Urine pH 6.5 (5.0-7.0)
[2018-05-22] MEDS ORDERED: CEFTRIAXONE/SWI 1gm 1 GM/10 ML SYR ONE (16:48)
--- NOTE | 2018-05-22 16:59 | EDPHYS ---
Physician Documentation [facility] Name: Maria Fernanda Toro Age: 77 yrs Sex: Female : 1940 Arrival Date: 05/22/2018 Time: 14:11 Bed 2 Private MD: ED Physician Khurram Sharma HPI: 05/22 14:39 This 77 yrs old Female presents to ER via EMS with complaints of Breathing rn Difficulty. 14:39 The patient presents with agitation, confusion, decreased mental status, rn disorientation. Onset: The symptoms/episode began/occurred at an unknown time. Possible causes: unknown. Associated signs and symptoms: Pertinent positives: agitation, confusion. Current symptoms: In the emergency department the patient's symptoms are unchanged from the initial presentation. The patient has experienced similar episodes in the past. The patient has not recently seen a physician. Caregiver reports increased confusion and agitation, recently diagnosed with pneumonia, + cough and sob, also not eating/drinking. + low grade fever. . Historical: - Allergies: 14:17 adhesive tape-silicones; hb - Home Meds: 14:17 aspirin 81 mg Oral chew 1 tab once daily [Active]; bupropion HCl 300 mg Oral Tb24 1 tab hb once daily [Active]; donepezil 10 mg Oral tab 1 tab once daily [Active]; levothyroxine 100 mcg tab 1 tab once daily [Active]; losartan 50 mg Oral tab 1 tab once daily [Active]; memantine 5 mg Oral tab 1 tabs daily [Active]; montelukast 10 mg Oral tab 1 tab once daily [Active]; prednisone 10 mg Oral tab 1 tab once daily [Active]; simvastatin 20 mg Oral tab 1 tab once daily [Active]; sotalol 80 mg Oral tab 0.5 tab 2 times per day [Active]; theophylline 200 mg Oral Tb12 1 tab daily [Active]; vit d3 1000 iu daily [Active]; - PMHx: 14:17 Atrial Fib; Dementia; High Cholesterol; COPD; Hypertension; Hypothyroidism; hb - PSHx: 14:17 Hysterectomy; Appendectomy; hb - Immunization history:: Adult Immunizations up to date. - Social history:: Smoking status: Patient uses tobacco products, denies chronic smoking, but will smoke occasionally. - Ebola Screening: : No symptoms or risks identified at this time. - Family history:: not pertinent. - Hospitalizations: : No recent hospitalization is reported. ROS: 14:39 Constitutional: + fever Eyes: Negative for injury, pain, redness, and discharge, record label intern: Negative for chest pain, palpitations, and edema, Respiratory: + cough Abdomen/GI: Negative for abdominal pain, nausea, vomiting, diarrhea, and constipation, MS/Extremity: Negative for injury and deformity, Skin: Negative for injury, rash Neuro: Negative for headache, weakness, and seizure. Exam: 14:39 Constitutional: This is a well developed, well nourished patient who is awake, alert, rn agitated and being held by nursing staff for IV start Head/Face: Normocephalic, atraumatic. ENT: dry MM, no stridor Neck: Trachea midline, no thyromegaly or masses palpated, and no cervical lymphadenopathy. Supple, full range of motion without nuchal rigidity, or vertebral point tenderness. No Meningismus. Cardiovascular: Regular rate and rhythm with a normal S1 and S2. No gallops, murmurs, or rubs. Normal PMI, no JVD. No pulse deficits. Respiratory: diminished bilateral breath sounds, no wheezing, mild tachypnea Abdomen/GI: soft, non-tender MS/ Extremity: Pulses equal, no cyanosis. Neurovascular intact. Full, normal range of motion. Equal circumference. Neuro: Awake and alert, GCS 15, oriented to person, place, not time. Motor strength 5/5 in all extremities. Sensory grossly intact. Vital Signs: 14:12 BP 149 / 91; Pulse 77; Resp 20; Temp 100.2; Pulse Ox 100% on Nebulizer Mask; Pain 0/10; hb 15:30 BP 142 / 60; Pulse 69; Resp 17 S; Temp 99.9; Pulse Ox 100% on R/A; sg 18:17 BP 136 / 68; Pulse 67; Resp 17; Pulse Ox 100% on R/A; Pain 0/10; sg 19:27 BP 113 / 49; Pulse 70; Resp 16; Temp 98.1; Pulse Ox 99% on R/A; Pain 0/10; ak1 Magy Coma Score: 15:30 Eye Response: spontaneous(4). Verbal Response: confused(4). Motor Response: localizes sg pain(5). Total: 13. MDM: 14:23 Patient medically screened. rn 16:52 Differential Diagnosis: electrolyte abnormality, hypoglycemia, pneumonia, UTI, volume rn depletion. Data reviewed: vital signs, nurses notes, lab test result(s), EKG, radiologic studies, and as a result, I will admit patient. Counseling: I had a detailed discussion with the patient and/or guardian regarding: the historical points, exam findings, and any diagnostic results supporting the discharge/admit diagnosis, lab results, radiology results, the need for further work-up and treatment in the hospital. Response to treatment: the patient's symptoms have mildly improved after treatment, and as a result, I will admit patient. Admission orders: after a detailed discussion of the patient's condition and case, the admit orders are written by me. 05/22 14:31 Order name: Urine Culture rn 05/22 14:31 Order name: Basic Metabolic Panel; Complete Time: 15:25 05/22 14:31 Order name: Blood Culture Adult (2) 05/22 14:31 Order name: CBC with Diff; Complete Time: 15:25 05/22 14:31 Order name: Lactate; Complete Time: 18:20 rn 05/22 14:31 Order name: LFT's; Complete Time: 15:25 05/22 14:31 Order name: Lipase; Complete Time: 15:25 rn 05/22 14:31 Order name: Procalcitonin; Complete Time: 16:50 rn 05/22 14:31 Order name: Troponin (emerg Dept Use Only); Complete Time: 15:25 rn 05/22 14:31 Order name: Urine Microscopic Only; Complete Time: 16:50 05/22 14:31 Order name: Chest Single View XRAY; Complete Time: 15:48 rn 05/22 14:31 Order name: Flu; Complete Time: 15:25 rn 05/22 16:32 Order name: Urine Dipstick--Ancillary (enter results); Complete Time: 16:50 bd 05/22 17:18 Order name: XRAY Tib Fib LEFT rn 05/22 14:31 Order name: Accucheck; Complete Time: 14:43 rn 05/22 14:31 Order name: Cardiac monitoring; Complete Time: 14:43 rn 05/22 14:31 Order name: EKG - Nurse/Tech; Complete Time: 16:29 rn 05/22 14:31 Order name: IV Saline Lock - Large Bore; Complete Time: 14:44 rn 05/22 14:31 Order name: Labs collected and sent; Complete Time: 14:45 rn 05/22 14:31 Order name: O2 Per Protocol; Complete Time: 14:43 rn 05/22 14:31 Order name: O2 Sat Monitoring; Complete Time: 14:43 rn 05/22 16:52 Order name: Diet Heart Healthy; Complete Time: 16:53 05/22 17:18 Order name: XRAY Ankle LEFT 2 view rn 05/22 17:20 Order name: XRAY Foot LEFT 2 View 05/22 18:25 Order name: RAD; Complete Time: 21:15 [facility] 05/22 18:25 Order name: RAD; Complete Time: 21:15 [facility] 05/22 18:26 Order name: RAD; Complete Time: 21:15 [facility] 05/22 14:31 Order name: Urine Dipstick-Ancillary (obtain specimen); Complete Time: 16:28 05/22 15:22 Order name: Labs - recollect needed; Complete Time: 16:25 bd Administered Medications: 15:01 Drug: NS 0.9% 500 ml Route: IV; Rate: bolus; Site: right forearm; hb 19:51 Follow up: Response: No adverse reaction; IV Status: Completed infusion; IV Intake: ea 500ml 15:01 Drug: Tylenol 650 mg Route: PO; hb 16:25 Follow up: Response: No adverse reaction; Temperature is decreased sg 16:50 Drug: Rocephin - (cefTRIAXone) 1 grams Route: IVPB; Infused Over: 30 mins; Site: right sg forearm; 19:52 Follow up: Response: No adverse reaction; IV Status: Completed infusion ea Disposition: 05/22/18 16:59 Hospitalization ordered by Alfredito Rene for Inpatient Admission. Preliminary diagnosis are Altered mental status, unspecified, Urinary tract infection, site not specified, Dehydration, Delirium due to known physiological condition. - Bed requested for Telemetry/MedSurg (Inpatient). - Status is Inpatient Admission. ak1 - Condition is Stable. - Problem is new. - Symptoms have improved. UTI on Admission? Yes Signatures: Dispatcher [employer] EDGA Laurel Schroeder Steven, RN RN sg Khurram Sharma MD MD rn Krenek, Amber, RN RN ak1 Jordyn Rivera RN RN hb Antunez, Elena RN ea Corrections: (The following items were deleted from the chart) 16:59 16:59 Hospitalization Ordered by Alfredito Rene DO for Inpatient Admission. Preliminary rn diagnosis is Altered mental status, unspecified; Urinary tract infection, site not specified; Dehydration; Delirium due to known physiological condition. Bed requested for Telemetry/MedSurg (Inpatient). Status is Inpatient Admission. Condition is Stable. Problem is new. Symptoms have improved. UTI on Admission? No. rn 18:19 16:59 05/22/2018 16:59 Hospitalization Ordered by Alfredito Rene DO for Inpatient bd Admission. Preliminary diagnosis is Altered mental status, unspecified; Urinary tract infection, site not specified; Dehydration; Delirium due to known physiological condition. Bed requested for Telemetry/MedSurg (Inpatient). Status is Inpatient Admission. Condition is Stable. Problem is new. Symptoms have improved. UTI on Admission? Yes. rn 20:13 18:19 05/22/2018 16:59 Hospitalization Ordered by Alfredito Rene DO for Inpatient ak1 Admission. Preliminary diagnosis is Altered mental status, unspecified; Urinary tract infection, site not specified; Dehydration; Delirium due to known physiological condition. Bed requested for Telemetry/MedSurg (Inpatient). Status is Inpatient Admission. Condition is Stable. Problem is new. Symptoms have improved. UTI on Admission? Yes. bd
--- NOTE | 2018-05-22 16:59 | ER ---
Nurse's Notes [facility] Emergency Department Name: Maria Fernanda Toro Age: 77 yrs Sex: Female : 1940 Arrival Date: 05/22/2018 Time: 14:11 Bed 2 Private MD: Diagnosis: Altered mental status, unspecified;Urinary tract infection, site not specified;Dehydration;Delirium due to known physiological condition Presentation: 05/22 14:12 Presenting complaint: EMS states: SOB x 1 week, worse over last 2 days. Recently dx hb with pneumonia. Hx dementia, afib, COPD. Home caregiver reports pt is more agitated and confused than normal. Transition of care: patient was not received from another setting of care. Onset of symptoms was May 22, 2018. Risk Assessment: Do you want to hurt yourself or someone else? Patient reports no desire to harm self or others. Care prior to arrival: None. 14:12 Method Of Arrival: EMS: [facility] 14:12 Acuity: MARIUM 2 hb Triage Assessment: 19:38 General: Appears in no apparent distress. Respiratory: Onset: The symptoms/episode ak1 began/occurred at an unknown time. the patient has mild shortness of breath. 19:39 Respiratory: Reports. ak1 Historical: - Allergies: 14:17 adhesive tape-silicones; hb - Home Meds: 14:17 aspirin 81 mg Oral chew 1 tab once daily [Active]; bupropion HCl 300 mg Oral Tb24 1 tab hb once daily [Active]; donepezil 10 mg Oral tab 1 tab once daily [Active]; levothyroxine 100 mcg tab 1 tab once daily [Active]; losartan 50 mg Oral tab 1 tab once daily [Active]; memantine 5 mg Oral tab 1 tabs daily [Active]; montelukast 10 mg Oral tab 1 tab once daily [Active]; prednisone 10 mg Oral tab 1 tab once daily [Active]; simvastatin 20 mg Oral tab 1 tab once daily [Active]; sotalol 80 mg Oral tab 0.5 tab 2 times per day [Active]; theophylline 200 mg Oral Tb12 1 tab daily [Active]; vit d3 1000 iu daily [Active]; - PMHx: 14:17 Atrial Fib; Dementia; High Cholesterol; COPD; Hypertension; Hypothyroidism; hb - PSHx: 14:17 Hysterectomy; Appendectomy; hb - Immunization history:: Adult Immunizations up to date. - Social history:: Smoking status: Patient uses tobacco products, denies chronic smoking, but will smoke occasionally. - Ebola Screening: : No symptoms or risks identified at this time. - Family history:: not pertinent. - Hospitalizations: : No recent hospitalization is reported. Screenin:18 Abuse screen: Denies threats or abuse. Denies injuries from another. Nutritional hb screening: No deficits noted. Tuberculosis screening: No symptoms or risk factors identified. Fall Risk Total Smallwood Fall Scale indicates High Risk Score (45 or more points). Fall prevention measures have been instituted. Side Rails Up X 2 Frequent Obs/Assessments Occuring Family Present and informed to notify staff if the need to leave the bedside As available patient and family educated on Fall Prevention Program and Strategies. Assessment: 14:15 General: Appears in no apparent distress. Behavior is agitated, uncooperative. Pain: hb Denies pain. Neuro: Level of Consciousness is confused, lethargic, Oriented to person, place. Cardiovascular: Heart tones S1 S2 present Capillary refill < 3 seconds Patient's skin is warm and dry. Rhythm is regular. Respiratory: Airway is patent Respiratory effort is even, unlabored, Respiratory pattern is regular, symmetrical, Breath sounds are clear bilaterally. GI: No signs and/or symptoms were reported involving the gastrointestinal system. : No signs and/or symptoms were reported regarding the genitourinary system. EENT: No signs and/or symptoms were reported regarding the EENT system. Derm: Skin is intact, is healthy with good turgor. Musculoskeletal: No signs and/or symptoms reported regarding the musculoskeletal system. 14:40 Reassessment: pt removing EKG leads, and BP cuff at this time, attempt to reapply, pt sg states " get that stuff off of me." will reapply equipment when time to assess VS, VSS at this time. 15:00 Reassessment: Patient appears in no apparent distress at this time. No changes from hb previously documented assessment. Patient and/or family updated on plan of care and expected duration. Pain level reassessed. Patient is alert, oriented x 3, equal unlabored respirations, skin warm/dry/pink. 15:52 Reassessment: Patient appears in no apparent distress at this time. Patient and/or sg family updated on plan of care and expected duration. Pain level reassessed. lab at bedside for recollect attempt pt remains aa\\T\\ox1, with increased episodes of confusion per human machine interface engineer. 15:55 Reassessment: unable to obtain blood cultures, or lactate at this time, was able to sg obtain specimen for procalcitonin and specimen had been sent, pt combative with lab and this nurse, notified that pt is combative with blood draw and Blood cultures were not obtained as well as lactate level. 16:50 Reassessment: Patient appears in no apparent distress at this time. Patient and/or sg family updated on plan of care and expected duration. Pain level reassessed. no changes from previous assessment done at 1415, pt caregiver remains at bedside, awaiting admission orders at this time, a meal tray at been ordered awaiting a tray at this time, will continue to monitor. 17:09 Reassessment: at bedside evaluating pt and speaking with pt daughter on sg caregiver cell phone, awaiting pt admission at this time. 17:50 Reassessment: Patient appears in no apparent distress at this time. Patient and/or sg family updated on plan of care and expected duration. Pain level reassessed. awaiting dietary tray and awaiting bed assignment at this time, pt caregiver remains at bedside, pt updated on POC and status for admission, pt and pt caregiver stated understanding. 18:23 Reassessment: pt caregiver at bedside at this time, assisting pt with dietary tray, bed sg assignment to room 401, pt and pt caregiver stated understanding, attempt to call report, nurse unavailable at this time, will attempt to call again Patient denies pain at this time. 19:25 General: Appears in no apparent distress. Behavior is calm, Sitter at bedside. Pain: ea Denies pain. Neuro: Level of Consciousness is confused, lethargic, Oriented to person. Cardiovascular: Patient's skin is warm and dry. Respiratory: Airway is patent Respiratory effort is even, unlabored, Respiratory pattern is regular, symmetrical. GI: No signs and/or symptoms were reported involving the gastrointestinal system. Derm: Skin is intact. Musculoskeletal: No signs and/or symptoms reported regarding the musculoskeletal system. 19:27 Reassessment: Patient appears in no apparent distress at this time. No changes from ak1 previously documented assessment. Patient and/or family updated on plan of care and expected duration. Pain level reassessed. Patient is alert, oriented x 3, equal unlabored respirations, skin warm/dry/pink. pt ambulated to restroom with steady gait with home health care provider. Patient denies pain at this time. 19:45 Reassessment: Report called to receiving nurse on fourth floor. ea Vital Signs: 14:12 BP 149 / 91; Pulse 77; Resp 20; Temp 100.2; Pulse Ox 100% on Nebulizer Mask; Pain 0/10; hb 15:30 BP 142 / 60; Pulse 69; Resp 17 S; Temp 99.9; Pulse Ox 100% on R/A; sg 18:17 BP 136 / 68; Pulse 67; Resp 17; Pulse Ox 100% on R/A; Pain 0/10; sg 19:27 BP 113 / 49; Pulse 70; Resp 16; Temp 98.1; Pulse Ox 99% on R/A; Pain 0/10; ak1 Magy Coma Score: 15:30 Eye Response: spontaneous(4). Verbal Response: confused(4). Motor Response: localizes sg pain(5). Total: 13. ED Course: 14:11 Patient arrived in ED. hb 14:14 Triage completed. hb 14:17 Arm band placed on. hb 14:23 Khurram Sharma MD is Attending Physician. rn 14:35 Patient has correct armband on for positive identification. Placed in gown. Bed in low sg position. Call light in reach. Side rails up X2. alarm security or surveillance monitor on. Pulse ox on. NIBP on. Warm blanket given. Pillow given. Verbal reassurance given. Head of bed elevated. 14:35 Urine collected: clean catch specimen, cloudy. sg 14:37 X-ray completed. Portable x-ray completed in exam room. Patient tolerated procedure jb2 well. 14:40 Initial lab(s) drawn, by ED staff, sent to lab. sg 14:43 Inserted saline lock: 22 gauge in right forearm, using aseptic technique. jb1 14:44 Jarred Ku, RN is Primary Nurse. sg 14:50 Chest Single View XRAY In Process Unspecified. EDMS 15:50 Lab(s) recollected, by record label intern, sent to lab. sg 16:58 Alfredito Rene DO is Hospitalizing Provider. rn 17:50 First set of blood cultures drawn by ED staff. Second set of blood cultures drawn by ED sg staff. 17:53 X-ray completed. Portable x-ray completed in exam room. Patient tolerated procedure az well. 18:21 Diet: Patient given a heart healthy meal tray. iw 19:45 No provider procedures requiring assistance completed. Patient admitted, IV remains in ea place. Administered Medications: 15:01 Drug: NS 0.9% 500 ml Route: IV; Rate: bolus; Site: right forearm; hb 19:51 Follow up: Response: No adverse reaction; IV Status: Completed infusion; IV Intake: ea 500ml 15:01 Drug: Tylenol 650 mg Route: PO; hb 16:25 Follow up: Response: No adverse reaction; Temperature is decreased sg 16:50 Drug: Rocephin - (cefTRIAXone) 1 grams Route: IVPB; Infused Over: 30 mins; Site: right sg forearm; 19:52 Follow up: Response: No adverse reaction; IV Status: Completed infusion ea Intake: 19:51 IV: 500ml; Total: 500ml. ea Outcome: 16:59 Decision to Hospitalize by Provider. rn 19:39 Admitted to Tele accompanied by tech, family with patient, via wheelchair, room 401, ak1 with chart. 19:39 Condition: good 19:39 Instructed on the need for admit. 20:13 Patient left the ED. ak1 Signatures: Dispatcher [employer] EDRobb Brody jb1 Jarred Ku RN RN Kyle Vanessa2 Jen Qureshi RN RN Khurram Sharma MD MD rn Krenek, Amber, RN RN ak1 Jordyn Rivera RN RN hb Antunez, Elena RN Kiersten Kunz ea Corrections: (The following items were deleted from the chart) 14:18 14:12 Presenting complaint: EMS states: SOB x 1 week, worse over last 2 days. Recently hb dx with pneumonia. Hx Alzheimer's, COPD. Home caregiver reports pt is more agitated than normal. hb
--- NOTE | 2018-05-22 17:47 | P.HP ---
Certification for Inpatient Patient admitted to: Inpatient With expected LOS: >2 Midnights Patient will require the following post-hospital care: Home Health Services Practitioner: I am a practitioner with admitting privileges, knowledge of patient current condition, hospital course, and medical plan of care. Services: Services provided to patient in accordance with Admission requirements found in Title 42 Section 412.3 of the Code of Federal Regulations Patient History Date of Service: 05/22/18 Primary Care Provider: Dr. Kramer; Pulm-Dr. Monae; Neuro-Dr. Salas; Card-Dr. Alcaraz Reason for admission: Altered mental status History of Present Illness: 77-year-old female presented emergency room with altered mental status. Patient with multiple medical problems including COPD-oxygen/steroid dependent, Alzheimer's dementia severe, atrial fibrillation not on chronic anti coagulation therapy, hypertension, hypothyroidism, diastolic CHF and depression. Patient was brought in after caregiver and daughter noted some changes. Patient recently hospitalized in early April for altered mental status. At that time she was diagnosed with RML pneumonia and COPD exacerbation. Patient was seen by Pulmonology and Neurology. Patient has been off antibiotic therapy for at least 11 days. Caregiver noted increased wheezing and mild shortness of breath today. There was also mention of fever. The patient has had poor oral intake. Patient at higher risk for aspiration. Daughter is not aware if there is any underlying dysphagia but she has been having upper respiratory infections. Patient also apparently fell this past week as there is bruising to her left ankle region. She is in the process of following up with pulmonology, Neurology and podiatry. In the ER patient was slightly tachypneic. White count 9.2, hemoglobin 14.7, sodium 139, potassium 4.2, BUN of 15, her creatinine 1.05 with a GFR 52. Troponin unremarkable. Pro calcitonin negative. Urinalysis showed possible UTI. Chest x-ray showed possible underlying right middle lobe pneumonia with chronic pulmonary changes. Patient to have x-ray of her left lower extremity. Patient was admitted for further evaluation and treatment. When I saw the patient ER, patient with severe dementia. She does not appear septic. Caregiver at bedside. Caregiver reports patient still smokes. Allergies adhesive tape Allergy (Verified 10/20/16 01:51) Itching/Hives/Rash adhesive tape Allergy (Uncoded 10/20/16 02:00) Unknown adhesive tape-silicones Allergy (Uncoded 05/29/17 10:46) Unknown Home medications list reviewed: Yes Home Medications: Albuterol Sulfate [Proair Hfa] 8.5 gm IH Q6H PRN 06/10/14 buPROPion HCl [Bupropion HCl Sr] 300 mg PO DAILY 10/20/16 Losartan Potassium [Cozaar*] 50 mg PO DAILY 05/31/17 Aspirin Chewable [Aspirin Chewable*] 81 mg PO DAILY 08/07/17 Donepezil [Aricept*] 10 mg PO BEDTIME 08/07/17 Montelukast [Singulair*] 10 mg PO BEDTIME 08/07/17 Simvastatin 20 mg PO BEDTIME 08/07/17 Theophylline Anhydrous [Lars-24] 200 mg PO DAILY 08/07/17 Cholecalciferol (Vitamin D3) [Vitamin D3] 1,000 unit PO DAILY 05/02/18 Levothyroxine [Synthroid*] 100 mcg PO [id number] 05/02/18 Memantine HCl 5 mg PO DAILY 05/02/18 Perforomist 1 aer NEB BID 05/02/18 Sotalol HCl [Betapace*] 40 mg PO BID 05/02/18 predniSONE [Deltasone*] 10 mg PO BID #20 tab 05/02/18 Doxycycline Hyclate 100 mg PO BID #10 tablet 05/05/18 - Past Medical/Surgical History Diabetic: No -: COPD, oxygen and steroid dependent -: CHF -: HTN -: Atrial fibrillation, not on chronic anti coagulation therapy -: Hypothyroidism -: Severe Alzheimer's dementia -: Hyperlipidemia -: Tobacco abuse -: Depression with anxiety -: Tobacco abuse -: Hysterectomy -: Cholecystectomy -: CARDIAC CATH -: ALVIN cataract sx -: Bilateral repairs of ear drums -: Appendectomy Psychosocial/ Personal History: The patient is a . She has 1 child. She does not work. Patient has 24 hr care due to her dementia. Patient also has home health and physical therapy. - Family History Father -: Heart disease, Hypertension, Lung disease, Cancer Notes: Esophogeal Ca Mother -: Heart disease, Hypertension, Diabetes, Stroke Notes: developed blood clot during heart sx. - passed Brother -: Diabetes, Cancer, Liver disease Notes: Liver Ca - Social History Smoking Status: Heavy Tobacco smoker (>10 cigarettes/day) Counseled patient to stop smoking for: less than 10 minutes Smoking therapy provided: No Patient receptive to therapy: No Alcohol use: No CD- Drugs: No Caffeine use: Yes Place of Residence: Home Review of Systems General: Weakness, As per HPI Eyes: Unremarkable ENT: Nose Congestion, As per HPI Respiratory: Shortness of Breath, Wheezing, As per HPI Cardiovascular: As per HPI Gastrointestinal: Unremarkable Genitourinary: As per HPI Musculoskeletal: Unremarkable Integumentary: Unremarkable Neurological: Weakness, Confusion, As per HPI Lymphatics: Unremarkable Physical Examination - Physical Exam General: Alert, Demented, Confused HEENT: Atraumatic, Normocephalic, Mucous membr. moist/pink Neck: Supple, No Thyromegaly Respiratory: Crackles/rales (Slight crackles to the bases to the right side), Expiratory wheezes, Inspiratory wheezes Cardiovascular: Normal pulses, Regular rate/rhythm Gastrointestinal: Normal bowel sounds, Soft and benign, Non-distended, No tenderness, No masses, No rebound, No guarding Musculoskeletal: No erythema, No tenderness, No warmth Integumentary: Tenderness/swelling (Minimal swelling to the left ankle region. Some bruising noted.) Neurological: Normal speech, Normal strength at 5/5 x4 extr, Normal tone, Dementia (Severe dementia) - Studies Laboratory Data (last 24 hrs) 05/22/18 14:30: WBC 9.2, Hgb 14.7, Hct 42.2, Plt Count 217 05/22/18 14:30: Sodium 139, Potassium 4.2, BUN 15, Creatinine 1.04, Glucose 98, Total Bilirubin 0.6, AST 26, ALT 17, Alkaline Phosphatase 65, Lipase 285 Microbiology Data (last 24 hrs): 05/22/18 14:30 Nasopharnyx Influenza Type A Antigen Screen - Final 05/22/18 14:30 Nasopharnyx Influenza Type B Antigen Screen - Final Assessment and Plan - Plan Impression: Altered mental status possibly underlying UTI complicated with COPD exacerbation with advanced COPD on chronic steroids and oxygen High risk for aspiration pneumonia with possible dysphagia Recent fall with bruising to the left foot Alzheimer's dementia, severe Atrial fibrillation not on chronic anti coagulation therapy Hypothyroidism Hypertension GERD Hyperlipidemia Plan: Altered mental status possibly underlying UTI complicated with COPD exacerbation with advanced COPD on chronic steroids and oxygen: Patient will be admitted for further evaluation. Sputum, urine and blood cultures obtained. Will start IV Zosyn to cover for possible aspiration pneumonia and UTI. Will continue COPD medication. Will maintain sats above 90%. Will recheck chest x- ray in the morning. Will consult pulmonology for further recommendation. High risk for aspiration pneumonia with possible dysphagia: Patient recently hospitalized for COPD and pneumonia in early April. Will continue with antibiotics and breathing treatments. Will need to assess for dysphagia. Will order speech evaluation along with modified barium swallow. Aspiration precaution in place. Recent fall with bruising to the left foot: Will check x-ray and venous Doppler of the lower extremity. What physical therapy assess ambulation. Fall precautions in place. Patient to see Podiatry soon as an outpatient. Alzheimer's dementia, severe: Will continue with her medication of Namenda and Aricept. Will consult her neurologist further recommendation and evaluation of altered mental status. Atrial fibrillation not on chronic anti coagulation therapy: Will continue with rate control medication-sotalol. Patient not on chronic anti coagulation therapy due to risk of fall and bleeding. Hypothyroidism: Will check tsh and free T4. Will continue with her home medication. Hypertension: Continue with home medication. Will monitor and address appropriately. GERD: Will provide PPI. Hyperlipidemia: Will restart home medication. Discharge Plan: Home Plan to discharge in: 48 Hours - Advance Directives Does patient have a Living Will: Yes Does patient have a Durable POA for Healthcare: Yes - Code Status/Comfort Care Code Status Assessed: Yes (Discuss with daughter. Patient DNR.) Time Spent Managing Pts Care (In Minutes): 55
--- NOTE | 2018-05-22 18:24 | RAD REPORT ---
EXAM DESCRIPTION: RAD - Ankle Left 2 View - 05/22/2018 5:57 pm CLINICAL HISTORY: Left ankle pain and swelling COMPARISON: None. FINDINGS: No fracture, dislocation or periosteal reaction. No joint effusion seen. No joint space na rrowing. No soft tissue abnormality. Foot findings are detailed in separate report. IMPRESSION: Negative left ankle for fracture or other acute finding.
--- NOTE | 2018-05-22 18:24 | RAD REPORT ---
EXAM DESCRIPTION: RAD - Foot Left 2 View - 05/22/2018 5:57 pm CLINICAL HISTORY: Left foot pain and swelling COMPARISON: None. FINDINGS: No fracture, dislocation or periosteal reaction. Postsurgical changes in bony remodeling a re present in the mid and distal first metatarsal. Mild to moderate first MTP joint degenerative vaughn ges are present. No destructive bone process. No plantar or Achilles spurring. No air or foreign body in the soft tissues. IMPRESSION: No fracture or acute bone finding in the left foot. Degenerative and postsurgical changes involve the first metatarsal and first MTP joint.
--- NOTE | 2018-05-22 18:25 | RAD REPORT ---
EXAM DESCRIPTION: RAD - Tib Fib Left - 05/22/2018 5:57 pm CLINICAL HISTORY: Left leg pain and swelling COMPARISON: None. FINDINGS: No fracture is identified. There is no dislocation or periosteal reaction noted. No acute or suspicious bony finding. No foreign body or other soft tissue abnormality. IMPRESSION: Negative left tibia & fibula examination.
[2018-05-22] MEDS ORDERED: SOTALOL HCL 80 MG TAB PO SCH (20:46)
[2018-05-22] MEDS ORDERED: ACETAMINOPHEN 500 MG TAB PO PRN (20:46)
[2018-05-22] MEDS ORDERED: ONDANSETRON 4 MG/2 ML VIAL IV PRN (20:46)
[2018-05-22 22:08] LABS: Thyroid Stimulating Hormone 0.066 uIU/mL (0.360-3.740)
[2018-05-22] MEDS: MEMANTINE HCL 10 MG TABLET PO SCH (22:34)
[2018-05-22] MEDS: predniSONE 10 MG TAB PO SCH (22:34)
[2018-05-22] MEDS: ATORVASTATIN 10 MG TAB PO SCH (22:35)
[2018-05-22] MEDS: DONEPEZIL HCL 5 MG TAB PO SCH (22:35)
[2018-05-22] MEDS: MONTELUKAST 10 MG TAB PO SCH (22:35)
[2018-05-22] MEDS: IPRATROPIUM BROM 0.5MG/2.5ML NEB PRN (22:40)
[2018-05-22] MEDS: ALBUTEROL 2.5 MG/3 ML NEB SOL NEB PRN (22:40)
[2018-05-23 00:55] VITALS: BMI 23.7
[2018-05-23] MEDS: PIPER/TAZO/NS 3.375gm 3.375 GM/100 ML BAG IVPB SCH ×3 (01:39→17:54)
[2018-05-23] MEDS ORDERED: PIPER/TAZO/NS 3.375gm 3.375 GM/100 ML BAG ONE (01:47)
[2018-05-23] MEDS: SOTALOL HCL 80 MG TAB PO SCH ×2 (06:08→22:06)
[2018-05-23 06:15] LABS: Absolute Lymphocytes (CBC) 1.1 K/uL (0.7-4.9); Absolute Monocytes 0.7 K/uL (0.1-1.3); Absolute Neutrophil 4.5 K/uL (1.8-8.0); Basophils % 0.3 % (0-1.3); Eosinophils % 0.3 % (0-4.4); Hematocrit 37.3 % (36.0-45.0); Lymphocytes % 17.7 % (15.3-44.8); MPV 8.8 fL (7.6-11.3); Monocytes % 10.8 % (3.3-12.3); RBC Red Blood Cell Count 3.99 M/uL (3.86-4.86)
[2018-05-23] MEDS ORDERED: LEVOTHYROXINE SOD 0.1 MG TAB PO SCH (06:30)
[2018-05-23 06:40] LABS: Magnesium 2.3 mg/dL (1.8-2.4)
[2018-05-23] MEDS: ENOXAPARIN 40 MG/0.4 ML SQ SCH (10:36)
[2018-05-23] MEDS: MEMANTINE HCL 10 MG TABLET PO SCH ×2 (10:50→22:05)
[2018-05-23] MEDS: predniSONE 10 MG TAB PO SCH ×2 (10:50→22:06)
[2018-05-23] MEDS: BUPROPION HCL XL 150 MG TAB PO SCH (10:50)
[2018-05-23] MEDS: THIAMINE HCL 100 MG TABLET PO SCH (10:50)
[2018-05-23] MEDS: LOSARTAN POTASSIUM 50 MG TABLET PO SCH (10:51)
--- NOTE | 2018-05-23 11:03 | P.PN ---
Subjective Date of Service: 05/23/18 Primary Care Provider: Dr. Kramer; Pulm-Dr. Monae; Neuro-Dr. Salas; Card-Dr. Alcaraz Chief Complaint: Altered mental status Subjective: Improving (Patient continues to improve. Still with slight confusion. Patient was severe dementia.) Physical Examination - Vital Signs Temperature: 97.7 F Blood Pressure: 155/70 Pulse: 54 Respirations: 20 Pulse Ox (%): 96 - Physical Exam General: Alert, In no apparent distress, Cooperative, Demented (Severe dementia) , Confused HEENT: Atraumatic Neck: Supple Respiratory: Expiratory wheezes, Inspiratory wheezes Cardiovascular: Normal pulses, Regular rate/rhythm Gastrointestinal: Normal bowel sounds, Soft and benign, Non-distended, No masses , No rebound, No guarding Musculoskeletal: No erythema, No tenderness, No warmth Integumentary: No tenderness/swelling, No erythema, No warmth, No cyanosis Neurological: Normal speech, Normal strength at 5/5 x4 extr, Normal tone, Dementia (Severe dementia) - Studies Laboratory Data (last 24 hrs) 05/22/18 14:30: WBC 9.2, Hgb 14.7, Hct 42.2, Plt Count 217 05/22/18 14:30: Sodium 139, Potassium 4.2, BUN 15, Creatinine 1.04, Glucose 98, Total Bilirubin 0.6, AST 26, ALT 17, Alkaline Phosphatase 65, Lipase 285 Microbiology Data (last 24 hrs): 05/22/18 14:30 Nasopharnyx Influenza Type A Antigen Screen - Final 05/22/18 14:30 Nasopharnyx Influenza Type B Antigen Screen - Final Assessment & Plan Discharge Plan: Home Plan to discharge in: 48 Hours Physician Review Additional Text: Impression: Altered mental status possibly underlying UTI complicated with COPD exacerbation with advanced COPD on chronic steroids and oxygen High risk for aspiration pneumonia with possible dysphagia Recent fall with bruising to the left foot Alzheimer's dementia, severe Atrial fibrillation not on chronic anti coagulation therapy Hypothyroidism Hypertension GERD Hyperlipidemia Plan: Altered mental status possibly underlying UTI complicated with COPD exacerbation with advanced COPD on chronic steroids and oxygen: Patient slightly improved. Patient still confused. Continue with IV Zosyn to cover for possible aspiration pneumonia and UTI. Sputum, urine and blood cultures obtained. Will monitor closely. Will wean off oxygen. Patient to be assessed by speech for possible dysphagia. Pulmonology consulted to further evaluate. I will turn the service over to Dr. Walker tomorrow. I will go over the plan of care with her. High risk for aspiration pneumonia with possible dysphagia: Patient recently hospitalized for COPD and pneumonia in early April. Will continue with antibiotics and breathing treatments. Speech to evaluate for dysphagia. Modified barium swallow ordered. Aspiration precaution in place. Recent fall with bruising to the left foot: X-ray unremarkable. Will have physical therapy assess ambulation. Fall precautions in place. Patient to see Podiatry soon as an outpatient. Alzheimer's dementia, severe: Will continue with her medication of Namenda and Aricept. Will consult her neurologist further recommendation and evaluation of altered mental status. Atrial fibrillation not on chronic anti coagulation therapy: Will continue with rate control medication-sotalol. Patient not on chronic anti coagulation therapy due to risk of fall and bleeding. Hypothyroidism: Will decrease her thyroid medication after reviewing lab. Tsh and free T4 will need to be recheck in 4-6 weeks to further address. Hypertension: Continue with home medication. Will monitor and address appropriately. GERD: Will provide PPI. Hyperlipidemia: Will continue with home medication. Time Spent Managing Pts Care (In Minutes): 55
--- NOTE | 2018-05-23 11:16 | RAD REPORT ---
EXAM DESCRIPTION: RAD - Chest Pa And Lat (2 Views) - 05/23/2018 10:43 am CLINICAL HISTORY: COPD, shortness of breath COMPARISON: May 22 and May 05, 2018, October and June 2016 TECHNIQUE: PA and lateral views of the chest were obtained. FINDINGS: The lungs are mildly fibrotic as a baseline. Focal stranding in the left upper lung field at the aortic arch level has been present on prior imaging. This is suspected to be progressive fibro tic change rather than mass or acute infiltrate. This has increased over time when compared to 2017. This is still favored to be progressive fibrotic change but warrants ongoing monitoring. Elsewhere no acute infiltrative process is seen. Lung markings are minimally prominent in the right base but not clearly a pneumonia. These can be monitored. Heart size is normal and central vasculature is within normal limits. No pleural effusion or pneumo thorax seen. No acute bony finding noted. No aortic abnormality. IMPRESSION: Baseline fibrotic change. Lung markings in the right base are slightly increased but not definitive for infiltrate. Right base can be monitored on subsequent imaging. Focal parenchymal opacification left upper lung field at the aortic arch level is believed to be prog ressive fibrosis. This warrants ongoing monitoring to assure no developing mass.
--- NOTE | 2018-05-23 11:17 | RAD REPORT ---
EXAM DESCRIPTION: RAD - Barium Swallow Modified - 05/23/2018 10:47 am CLINICAL HISTORY: Dysphagia COMPARISON: None. TECHNIQUE: The patient was given liquid, semi-solid and solid forms of barium. Lateral view fluorosc opic imaging was performed in conjunction with speech pathology service. FINDINGS: Cineloop acquisitions: 25 Fluoro time: 3 minutes 14 seconds Laryngeal penetration was observed with thin liquid barium. There was pooling in the valleculae and p yriform sinuses. Esophageal stasis was noted. IMPRESSION: Laryngeal penetration without aspiration. Findings are further detailed on speech pathology report.
[2018-05-23] MEDS: ALBUTEROL 2.5 MG/3 ML NEB SOL NEB PRN (12:41)
[2018-05-23] MEDS: IPRATROPIUM BROM 0.5MG/2.5ML NEB PRN (12:41)
--- NOTE | 2018-05-23 12:43 | RAD REPORT ---
EXAM DESCRIPTION: US - Extrem Venous W Compress Filiberto - 05/23/2018 12:19 pm CLINICAL HISTORY: Bilateral leg pain and swelling COMPARISON: None. TECHNIQUE: Real-time sonographic evaluation of the bilateral lower extremity common femoral, superfi cial femoral, popliteal and posterior tibial veins was performed. FINDINGS: Normal compressibility, flow augmentation, phasic flow and spontaneous flow are identified in the left and right lower extremity common femoral, superficial femoral, popliteal and posterior t ibial veins. No intraluminal filling defects seen. Exam was limited technically due to patient's limited ability to cooperate with the examination. IMPRESSION: No DVT in either lower extremity.
--- NOTE | 2018-05-23 16:29 | CON ---
Reason: Dementia, altered mental status. History: A 77-year-old lady with history of Alzheimer disease here in the hospital last month with a febrile pulmonary illness, questionable right middle lobe pneumonia, treated and improved enough for her to be discharged to home, was improving, but then developed recurrent confusion and dyspnea, bro ught back to the Emergency Department by family. UA demonstrates findings suggestive of questionable UTI and repeat chest x-ray demonstrates some fibrosis up around the aorta. The patient has advanced chronic COPD. She has high risk of aspiration pneumonia. She had a modified barium swallow demonst rating no barbara aspiration, but pooling in the vallecula and piriform sinuses with esophageal stasis. She is receiving IV antibiotics. Currently, she actually is less confused than on her prior hospit alization. Doppler of the legs, no DVT. X-ray of the legs, no fracture. She has ecchymosis medial aspect, left ankle. Consultation was requested. Past Medical History: COPD, hyperlipidemia, atrial fibrillation, dementia. Medications: Currently Tylenol, albuterol, atorvastatin, Wellbutrin, Aricept, Lovenox, Atrovent, Syn throid, Cozaar, Namenda, Singulair, Zofran, prednisone, sotalol, theophylline, thiamine, piperacillin tazobactam. Allergies: ADHESIVE TAPE. Social History: The patient requires 24 hour supervision. Continues to smoke. Requires assistance with activities of daily living. Family History: No family history of premature dementia. Review of Systems: General: Chronically ill. Eyes: Negative. Ears, Nose, Throat: No dysarthria. Cardiovascular: Atrial fibrillation. Pulmonary: COPD. GI: Negative. : Possible UTI. Neurologic: As noted. Psychiatric: Depression, insomnia. Endocrine: Hypothyroidism. Hematologic: Negative. Physical Examination: Vital Signs: On exam, 98.6, 57, 20, 182/75, saturations 96. General: She is awake, alert, knows she is in the hospital. Knows her name. Follows simple command s, confused as to the day of the week, month. HEENT: Pupils reactive. Ocular motion full. [place] full to threat. Facial strength, sensation nor mal. Tongue protrudes evenly. Soft palate elevates symmetrically bilaterally. Extremities: Examination of her extremities reveals greater than 4+ strength throughout. Sensation intact. Reflexes 1/4. Toes are downgoing. Neuro: Cerebellar exam demonstrates no ataxia. She is able ambulate with assistance. Impression: Alzheimer disease, delirium. Plan: Continue general supportive care. We will check a CT scan of the brain. She is high risk for stroke with chronic atrial fibrillation, not undergoing systemic anticoagulation, but I do believe t he risks/benefit ratio of systemic anticoagulation versus anti-platelet therapy favors anti-platelet therapy in her case. Thank you for the consult. We will continue to follow with you. FERNANDEZ Voice ID: [id number] Report ID: [id number]
[2018-05-23] MEDS: LORazepam 2 MG/ML VIAL IV PRN (16:45)
[2018-05-23] MEDS ORDERED: HOME MED 1 EA UNK (Simvastatin [Simvastatin] 20 MG) PO SCH (21:00)
[2018-05-23] MEDS: MONTELUKAST 10 MG TAB PO SCH (22:05)
[2018-05-23] MEDS: DONEPEZIL HCL 5 MG TAB PO SCH (22:05)
[2018-05-23] MEDS: ATORVASTATIN 10 MG TAB PO SCH (22:05)
[2018-05-24] MEDS: PIPER/TAZO/NS 3.375gm 3.375 GM/100 ML BAG IVPB SCH ×2 (02:28→10:41)
[2018-05-24] MEDS: SOTALOL HCL 80 MG TAB PO SCH ×3 (04:44→18:03)
[2018-05-24] MEDS: LEVOTHYROXINE SOD 0.088 MG TAB PO SCH ×2 (04:44→05:07)
--- NOTE | 2018-05-24 08:03 | EKG ---
Test Date: 2018-05-22 Test Time: 15:36:11 Fleet Manager: MEASUREMENT RESULTS: Intervals: Rate: 77 VA: QRSD: 120 QT: 396 QTc: 448 Mcgregor: P: 60 VA: QRS: -29 T: 35 INTERPRETIVE STATEMENTS: Sinus rhythm Low voltage QRS Right bundle branch block Abnormal ECG Compared to ECG 05/02/2018 07:12:28 Low QRS voltage now present Atrial premature complex(es) no longer present Electronically Signed On 05-24-18 08:03:05 RN POSTPARTUM by Mejia Alcaraz
[2018-05-24] MEDS: LORazepam 2 MG/ML VIAL IV PRN (08:15)
[2018-05-24 08:36] LABS: Absolute Lymphocytes (CBC) 1.5 K/uL (0.7-4.9); Absolute Monocytes 0.7 K/uL (0.1-1.3); Absolute Neutrophil 2.6 K/uL (1.8-8.0); Basophils % 0.7 % (0-1.3); Eosinophils % 0.4 % (0-4.4); Hematocrit 42.1 % (36.0-45.0); Lymphocytes % 30.5 % (15.3-44.8); MPV 9.7 fL (7.6-11.3); RBC Red Blood Cell Count 4.41 M/uL (3.86-4.86)
[2018-05-24 08:45] LABS: Magnesium 2.8 mg/dL (1.8-2.4); Potassium 4.8 mmol/L (3.5-5.1)
[2018-05-24] MEDS: THIAMINE HCL 100 MG TABLET PO SCH (09:00)
[2018-05-24] MEDS: BUPROPION HCL XL 150 MG TAB PO SCH (09:00)
[2018-05-24] MEDS ORDERED: HOME MED 1 EA UNK (Memantine Hcl [Memantine Hcl] 5 MG) PO SCH (09:00)
[2018-05-24] MEDS: predniSONE 10 MG TAB PO SCH ×2 (09:00→20:25)
[2018-05-24] MEDS: MEMANTINE HCL 10 MG TABLET PO SCH ×2 (09:00→20:25)
[2018-05-24] MEDS: THEOPHYLLINE SR 100 MG TAB PO SCH (09:00)
[2018-05-24] MEDS: LOSARTAN POTASSIUM 50 MG TABLET PO SCH ×2 (09:00→13:56)
--- NOTE | 2018-05-24 10:16 | RAD REPORT ---
EXAM DESCRIPTION: CT - Head Brain Wo Cont - 05/24/2018 9:39 am CLINICAL HISTORY: Transient alteration of awareness. COMPARISON: CT imaging May 02 TECHNIQUE: Axial 5 mm thick images of the head were obtained without IV contrast. All CT scans are performed using dose optimization technique as appropriate and may include automated exposure control or mA/KV adjustment according to patient size. FINDINGS: No intracranial hemorrhage, mass, edema or shift of mid-line structures. No acute infarcti on changes seen. No significant atrophy or chronic ischemic changes seen. Ventricles are normal. Intr acranial findings are similar to the comparison. Arterial calcifications are present. Mastoid air cells remain clear. Chronic sinusitis changes of the right maxillary sinus again noted. A ir-fluid level seen May 02 has diminished. No acute bony findings. IMPRESSION: Negative non-contrast CT head examination for acute finding. Nonacute findings detailed in the body of the report.
[2018-05-24] MEDS: ENOXAPARIN 40 MG/0.4 ML SQ SCH (10:41)
--- NOTE | 2018-05-24 11:47 | P.CNS ---
Date of Consult: 05/24/18 Primary Care Provider: Dr. Kramer; Pulm-Dr. Monae; Neuro-Dr. Salas; Card-Dr. Alcaraz Chief Complaint: Altered mental status History of Present Illness: Patient is 77 years of age well known to me with a history of COPD admitted with aggressive behavior significant agitation in addition to a slight fever patient denies any weakness of her extremities possible her causes a urosepsis patient was having breakfast at the time of my evaluation did not appear in any significant distress Allergies adhesive tape Allergy (Verified 10/20/16 01:51) Itching/Hives/Rash adhesive tape Allergy (Uncoded 10/20/16 02:00) Unknown adhesive tape-silicones Allergy (Uncoded 05/29/17 10:46) Unknown Home Medications: buPROPion HCl [Bupropion HCl Sr] 300 mg PO DAILY 10/20/16 Losartan Potassium [Cozaar*] 50 mg PO DAILY 05/31/17 Donepezil [Aricept*] 10 mg PO BEDTIME 08/07/17 Montelukast [Singulair*] 10 mg PO BEDTIME 08/07/17 Simvastatin 20 mg PO BEDTIME 08/07/17 Theophylline Anhydrous [Lars-24] 200 mg PO DAILY 08/07/17 Levothyroxine [Synthroid*] 100 mcg PO [id number] 05/02/18 Memantine HCl 5 mg PO DAILY 05/02/18 Sotalol HCl [Betapace*] 40 mg PO BID 05/02/18 predniSONE [Deltasone*] 10 mg PO DAILY 05/23/18 - Past Medical/Surgical History Diabetic: No -: COPD -: CHF -: HTN -: Atrial fibrillation, not on chronic anti coagulation therapy -: Hypothyroidism -: Severe Alzheimer's dementia -: Hyperlipidemia -: Tobacco abuse -: Depression with anxiety -: Tobacco abuse -: Hysterectomy -: Cholecystectomy -: CARDIAC CATH -: ALVIN cataract sx -: Bilateral repairs of ear drums -: Appendectomy Psychosocial/ Personal History: The patient is a . She has 1 child. She does not work. Patient has 24 hr care due to her dementia. Patient also has home health and physical therapy. - Family History Father Medical History: Heart disease, Hypertension, Lung disease, Cancer Notes: Esophogeal Ca Mother Medical History: Heart disease, Hypertension, Diabetes, Stroke Notes: developed blood clot during heart sx. - passed Brother Medical History: Diabetes, Cancer, Liver disease Notes: Liver Ca - Social History Smoking Status: Current some day smoker Alcohol use: No CD- Drugs: No Caffeine use: No Place of Residence: Home Review of Systems General: Weakness Respiratory: Shortness of Breath Physical Examination Temp Pulse Resp BP Pulse Ox 97.5 F 47 L 18 196/77 H 98 05/24/18 08:00 05/24/18 08:00 05/24/18 08:00 05/24/18 08:00 05/24/18 08:00 General: Alert, Oriented x3, Cooperative Neck: Supple Respiratory: Clear to auscultation bilaterally, Diminished Cardiovascular: No edema, Regular rate/rhythm, Normal S1 S2 Gastrointestinal: Normal bowel sounds, Soft and benign Musculoskeletal: No clubbing, No swelling - Problems (1) Altered mental status Current Visit: Yes Status: Acute Plan: Patient is 77 years of age admitted with altered mental status possibly from a urosepsis he is stable COPD chest x-ray shows some tender from her COPD labs reviewed unremarkable urine culture shows enterococcus vital signs are stable change to p.o. amoxicillin Qualifiers: Altered mental status type: delirium Qualified Code(s): R41.0 - Disorientation, unspecified
[2018-05-24] MEDS: ALBUTEROL 2.5 MG/3 ML NEB SOL NEB PRN (13:30)
[2018-05-24] MEDS: IPRATROPIUM BROM 0.5MG/2.5ML NEB PRN (13:30)
--- NOTE | 2018-05-24 18:59 | P.PN ---
Subjective Date of Service: 05/24/18 Primary Care Provider: Dr. Kramer; Pulm-Dr. Monae; Neuro-Dr. Salas; Card-Dr. Alcaraz Chief Complaint: Altered mental status Patient seen and examined at bedside with RN. Chart reviewed. Case discussed with pulmonology, nephrology, neurology. Currently patient is somnolent secondary to Ativan. Talk to patient's daughter at bedside as well over the phone and explained the need for head CT. Review of Systems 10-point ROS is otherwise unremarkable Physical Examination - Vital Signs Temperature: 98.1 F Blood Pressure: 182/77 Pulse: 60 Respirations: 18 Pulse Ox (%): 98 - Physical Exam General: In no apparent distress, Other (Somnolent and lethargic secondary to out of) HEENT: Atraumatic, PERRLA, EOMI Neck: Supple, JVD not distended Respiratory: Normal air movement, Expiratory wheezes, Inspiratory wheezes Cardiovascular: Regular rate/rhythm, Normal S1 S2 Gastrointestinal: Normal bowel sounds, Soft and benign, Non-distended, No tenderness Musculoskeletal: No tenderness Integumentary: No rashes Neurological: Normal speech, Normal tone, Normal affect Lymphatics: No axilla or inguinal lymphadenopathy - Studies Microbiology Data (last 24 hrs): 05/22/18 16:32 Catheterized Urine Story Count - Final BETWEEN 10,000 & 100,000 CFU/ML 05/22/18 16:32 Catheterized Urine - Final Enterococcus Faecalis Medications List Reviewed: Yes Assessment And Plan - Current Problems (Diagnosis) (1) Altered mental status Current Visit: Yes Status: Acute Plan: Toxic Encephalopathy most likely secondary to UTI -continues to be somnolent secondary to Ativan -head CTs pending at this time to rule out acute stroke -neurology has been consulted. Appreciated recommendations at this time -will continue to monitor closely. -hold Ativan at this time. If needed patient can have Geodon which has shown a better outcome an elderly population Qualifiers: Altered mental status type: delirium Qualified Code(s): R41.0 - Disorientation, unspecified (2) UTI (urinary tract infection) Onset Date: 07/20/16 Current Visit: No Status: Acute Plan: UA consistent with UTI -urine culture positive for enterococcus sensitive to Augmentin -patient switched to Augmentin at this time Qualifiers: Urinary tract infection type: acute cystitis Hematuria presence: without hematuria Qualified Code(s): N30.00 - Acute cystitis without hematuria (3) COPD exacerbation Onset Date: 10/15/15 Current Visit: No Status: Acute Plan: Acute exacerbation of COPD -DuoNeb, steroids, oxygen at this time -patient does have home oxygen at home as well (4) Hypothyroidism Onset Date: 08/08/17 Current Visit: No Status: Chronic Qualifiers: Hypothyroidism type: acquired Qualified Code(s): E03.9 - Hypothyroidism, unspecified (5) Atrial fibrillation Onset Date: 03/03/15 Current Visit: No Status: Chronic Qualifiers: Atrial fibrillation type: chronic Qualified Code(s): I48.2 - Chronic atrial fibrillation (6) Dementia in Alzheimer's disease Onset Date: 08/08/17 Current Visit: No Status: Chronic (7) Depression with anxiety Onset Date: 08/08/17 Current Visit: No Status: Chronic (8) Hypertension Onset Date: 06/30/15 Current Visit: No Status: Chronic Qualifiers: Hypertension type: essential hypertension (9) Hypothyroidism Onset Date: 06/01/17 Current Visit: No Status: Chronic Qualifiers: (10) Seizures Onset Date: 09/08/16 Current Visit: No Status: Chronic (11) Tobacco use disorder Onset Date: 06/01/17 Current Visit: No Status: Chronic - Plan Pending clinical improvement at this time. Head CT is negative at this time for any acute abnormality. Will follow up with neurology and further recommendations. Once patient is more alert and awake discharge planning can be addressed. Patient does have 24 hr providers at the house. Most likely patient will be discharged home with the providers. Anticipate discharge in next 24-48 hr pending patient's clinical improvement Discharge Plan: Home Plan to discharge in: Greater than 2 days - Code Status/Comfort Care Code Status Assessed: Yes Critical Care: No
[2018-05-24] MEDS: DONEPEZIL HCL 5 MG TAB PO SCH (20:25)
[2018-05-24] MEDS: MONTELUKAST 10 MG TAB PO SCH (20:25)
[2018-05-24] MEDS: ATORVASTATIN 10 MG TAB PO SCH (20:25)
[2018-05-24] MEDS: AMOX/K CLAV 500 MG TAB PO SCH (20:25)
[2018-05-25] MEDS: IPRATROPIUM BROM 0.5MG/2.5ML NEB PRN (05:32)
[2018-05-25] MEDS: ALBUTEROL 2.5 MG/3 ML NEB SOL NEB PRN (05:32)
[2018-05-25] MEDS: SOTALOL HCL 80 MG TAB PO SCH (06:10)
[2018-05-25] MEDS: LEVOTHYROXINE SOD 0.088 MG TAB PO SCH (06:11)
[2018-05-25 06:41] LABS: Absolute Lymphocytes (CBC) 1.3 K/uL (0.7-4.9); Absolute Monocytes 0.6 K/uL (0.1-1.3); Absolute Neutrophil 4.3 K/uL (1.8-8.0); Basophils % 0.5 % (0-1.3); Eosinophils % 1.2 % (0-4.4); Hematocrit 41.9 % (36.0-45.0); MPV 9.6 fL (7.6-11.3); Monocytes % 10.1 % (3.3-12.3); RBC Red Blood Cell Count 4.44 M/uL (3.86-4.86)
[2018-05-25 07:04] LABS: BUN Blood Urea Nitrogen 11 mg/dL (7-18); Bicarbonate 28 mmol/L (21-32); Glucose Level 89 mg/dL (74-106); Magnesium 2.5 mg/dL (1.8-2.4); Potassium 4.3 mmol/L (3.5-5.1); Sodium Level 143 mmol/L (136-145)
[2018-05-25] MEDS ORDERED: levoFLOXacin 500 MG TAB PO SCH (09:00)
[2018-05-25] MEDS: AMOX/K CLAV 500 MG TAB PO SCH (09:47)
[2018-05-25] MEDS: ENOXAPARIN 40 MG/0.4 ML SQ SCH (09:48)
[2018-05-25] MEDS: LOSARTAN POTASSIUM 50 MG TABLET PO SCH (09:48)
[2018-05-25] MEDS: MEMANTINE HCL 10 MG TABLET PO SCH (09:49)
[2018-05-25] MEDS: THEOPHYLLINE SR 100 MG TAB PO SCH (09:49)
[2018-05-25] MEDS: BUPROPION HCL XL 150 MG TAB PO SCH (09:49)
[2018-05-25] MEDS: THIAMINE HCL 100 MG TABLET PO SCH (09:49)
[2018-05-25] MEDS: predniSONE 10 MG TAB PO SCH (09:49)
[2018-05-25 11:30] VITALS: O2SAT 100
[2018-05-25 13:00] VITALS: BP 159/79; TEMP 97.4
--- NOTE | 2018-05-25 16:40 | P.DS ---
Admission Date: 05/22/18 Discharge Date: 05/25/18 Primary Care Provider: Dr. Kramer; Pulm-Dr. Monae; Neuro-Dr. Salas; Card-Dr. Alcaraz Disposition: ROUTINE DISCHARGE Discharge Condition: GOOD Reason for Admission: Altered mental status Consultations: Pulmonology nephrology neurology - Problems (1) Altered mental status Status: Resolved Qualifiers: Altered mental status type: delirium Qualified Code(s): R41.0 - Disorientation, unspecified (2) UTI (urinary tract infection) Onset Date: 07/20/16 Status: Acute Qualifiers: Urinary tract infection type: acute cystitis Hematuria presence: without hematuria Qualified Code(s): N30.00 - Acute cystitis without hematuria (3) COPD exacerbation Onset Date: 10/15/15 Status: Acute (4) Hypothyroidism Onset Date: 08/08/17 Status: Chronic Qualifiers: Hypothyroidism type: acquired Qualified Code(s): E03.9 - Hypothyroidism, unspecified (5) Atrial fibrillation Onset Date: 03/03/15 Status: Chronic Qualifiers: Atrial fibrillation type: chronic Qualified Code(s): I48.2 - Chronic atrial fibrillation (6) Dementia in Alzheimer's disease Onset Date: 08/08/17 Status: Chronic (7) Depression with anxiety Onset Date: 08/08/17 Status: Chronic (8) Hypertension Onset Date: 06/30/15 Status: Chronic Qualifiers: Hypertension type: essential hypertension (9) Hypothyroidism Onset Date: 06/01/17 Status: Chronic Qualifiers: (10) Seizures Onset Date: 09/08/16 Status: Chronic (11) Tobacco use disorder Onset Date: 06/01/17 Status: Chronic Brief History of Present Illness: 77-year-old female presented emergency room with altered mental status. Patient with multiple medical problems including COPD-oxygen/steroid dependent, Alzheimer's dementia severe, atrial fibrillation not on chronic anti coagulation therapy, hypertension, hypothyroidism, diastolic CHF and depression. Patient was brought in after caregiver and daughter noted some changes. Patient recently hospitalized in early April for altered mental status. At that time she was diagnosed with RML pneumonia and COPD exacerbation. Patient was seen by Pulmonology and Neurology. Patient has been off antibiotic therapy for at least 11 days. Caregiver noted increased wheezing and mild shortness of breath today. There was also mention of fever. The patient has had poor oral intake. Patient at higher risk for aspiration. Daughter is not aware if there is any underlying dysphagia but she has been having upper respiratory infections. Patient also apparently fell this past week as there is bruising to her left ankle region. She is in the process of following up with pulmonology, Neurology and podiatry. In the ER patient was slightly tachypneic. White count 9.2, hemoglobin 14.7, sodium 139, potassium 4.2, BUN of 15, her creatinine 1.05 with a GFR 52. Troponin unremarkable. Pro calcitonin negative. Urinalysis showed possible UTI. Chest x-ray showed possible underlying right middle lobe pneumonia with chronic pulmonary changes. Patient to have x-ray of her left lower extremity. Patient was admitted for further evaluation and treatment. When I saw the patient ER, patient with severe dementia. She does not appear septic. Caregiver at bedside. Caregiver reports patient still smokes. Hospital Course: Overall during the hospital stay patient remained stable Patient was initially admitted to the hospital for altered mental status. Was found to have toxic encephalopathy most likely secondary to urinary tract infection. The UA was consistent with UTI and urine culture was positive for enterococcus bacillus. Patient was initially started on IV Rocephin when was switched over to p.o. Augmentin given the sensitivities of the culture. Patient had marked resolution in her symptoms and her altered mental status also resolved. Given the history of altered mental status. Patient had extensive workup done here to rule out any acute abnormality including a head CT which was negative for any acute abnormality. Neurology was consulted who recommended repeating CBC CMP B12 and folate which were all unremarkable here in the hospital. Patient then had physical therapy evaluation and did well overall and [facility]. While here in the hospital patient was also found to have COPD exacerbation and was kept initially on duo nebs, steroids, oxygen. Patient is oxygen dependent and does [facility]. Patient then was able to be weaned off of duo nebs and had marked improvement in her symptoms and thus was discharged home with inhalers. While here in the hospital patient was also evaluated for dysphagia which was most likely secondary to altered mental status and progressively worsening dementia. Patient had a modified barium swallow and speech therapy evaluation here. Patient is modified barium swallow was within normal limits and patient was allowed to have chopped diet. Patient did well overall and thus was discharged home under stable condition Vital Signs/Physical Exam: Temp Pulse Resp BP Pulse Ox 97.4 F 50 18 159/79 H 98 05/25/18 12:00 05/25/18 12:00 05/25/18 12:00 05/25/18 12:00 05/25/18 12:00 General: Alert, In no apparent distress HEENT: Atraumatic, PERRLA, EOMI Neck: Supple, JVD not distended Respiratory: Clear to auscultation bilaterally, Normal air movement Cardiovascular: Regular rate/rhythm, Normal S1 S2 Gastrointestinal: Normal bowel sounds, No tenderness Musculoskeletal: No tenderness Integumentary: No rashes Neurological: Normal speech, Normal tone, Normal affect Lymphatics: No axilla or inguinal lymphadenopathy Laboratory Data at Discharge: WBC 6.3 K/uL (4.3-10.9) D 05/25/18 06:10 Hgb 14.2 g/dL (12.0-15.0) 05/25/18 06:10 Hct 41.9 % (36.0-45.0) 05/25/18 06:10 Plt Count 185 K/uL (152-406) 05/25/18 06:10 Sodium 143 mmol/L (136-145) 05/25/18 06:10 Potassium 4.3 mmol/L (3.5-5.1) 05/25/18 06:10 BUN 11 mg/dL (7-18) 05/25/18 06:10 Creatinine 0.78 mg/dL (0.55-1.3) 05/25/18 06:10 Glucose 89 mg/dL (74-106) 05/25/18 06:10 Magnesium 2.5 mg/dL (1.8-2.4) H 05/25/18 06:10 Total Bilirubin 0.6 mg/dL (0.2-1.0) 05/22/18 14:30 AST 26 U/L (15-37) 05/22/18 14:30 ALT 17 U/L (12-78) 05/22/18 14:30 Alkaline Phosphatase 65 U/L (45-117) 05/22/18 14:30 Lipase 285 U/L (73-393) 05/22/18 14:30 Home Medications: buPROPion HCl [Bupropion HCl Sr] 300 mg PO DAILY 10/20/16 Losartan Potassium [Cozaar*] 50 mg PO DAILY 05/31/17 Donepezil [Aricept*] 10 mg PO BEDTIME 08/07/17 Montelukast [Singulair*] 10 mg PO BEDTIME 08/07/17 Simvastatin 20 mg PO BEDTIME 08/07/17 Theophylline Anhydrous [Lars-24] 200 mg PO DAILY 08/07/17 Levothyroxine [Synthroid*] 100 mcg PO [id number] 05/02/18 Memantine HCl 5 mg PO DAILY 05/02/18 Sotalol HCl [Betapace*] 40 mg PO BID 05/02/18 predniSONE [Deltasone*] 10 mg PO DAILY 05/23/18 Amox/Clavulanate [Augmentin 500-125 mg Tab*] 500 mg PO BID #20 tab 05/25/18 New Medications: Amox/Clavulanate [Augmentin 500-125 mg Tab*] 500 mg PO BID #20 tab Patient Discharge Instructions: Please f.u with PCP and Pulmonology in 1 to 2 days post discharge. New medication. Augmentin 500mg BID for 10 days Diet: Regular Activity: Ad jane Followup: Isai Monae MD [ACTIVE - CAN ADMIT] - 1 Week (call to schedule appointment) Ronni Salas MD [ACTIVE - CAN ADMIT] - (call to schedule appointment) Andre Kramer MD [Primary Care Provider] - (call to schedule appoinment)
== END 2018-05-25 13:44 | disposition home health service (06) | DRG 690 ==
LOC: ER 14:09 → ERHOLD 17:27 → 4TH 19:47
PROVIDERS: ADMIT Family Medicine; ATTEND Family Medicine
DX: N30.00 Acute cystitis without hematuria (principal); I50.30 Unspecified diastolic (congestive) heart failure; J44.1 Chronic obstructive pulmonary disease with (acute) exacerbation; N39.0 Urinary tract infection, site not specified; G30.9 Alzheimer's disease, unspecified; F02.80 Dementia in other diseases classified elsewhere, unspecified severity, without behavioral disturbance, psychotic disturbance, mood disturbance, and anxiety; R41.0 Disorientation, unspecified; R56.9 Unspecified convulsions; I48.91 Unspecified atrial fibrillation; I10 Essential (primary) hypertension; E03.9 Hypothyroidism, unspecified; F32.9 Major depressive disorder, single episode, unspecified; K21.9 Gastro-esophageal reflux disease without esophagitis; F17.210 Nicotine dependence, cigarettes, uncomplicated; Z99.81 Dependence on supplemental oxygen; Z79.52 Long term (current) use of systemic steroids
CPT/HCPCS: 36415; 70450; 71045; 71046; 74230; 80048; 80076; 80198; 81003; 81015; 83605; 83690; 83735; 84145; 84439; 84443; 84484; 85025; 87040; 87077; 87086; 87088; 87186; 87804; 92526; 92611; 93005; 93970; 94640; 96361; 96365; 96366; 97116; 97163; 97530; 99285; J0696; J1650; J2543; J7512

== ENCOUNTER 2019-04-06 08:58 | Emergency (ER) | payer OTHER ==
[2019-04-06 10:21] LABS: Absolute Lymphocytes (CBC) 2.5 K/uL (0.7-4.9); Basophils % 0.2 % (0-1.3); MPV 8.9 fL (7.6-11.3); RBC Red Blood Cell Count 4.02 M/uL (3.86-4.86)
[2019-04-06 10:39] LABS: Bilirubin Direct 0.1 mg/dL (0-0.2); Bilirubin Total 0.3 mg/dL (0.2-1.0); Potassium 3.5 mmol/L (3.5-5.1); Protein, Total 6.6 g/dL (6.4-8.2)
[2019-04-06] MEDS ORDERED: DIPHENHYDRAMINE 50 MG/ML VIAL ONE (12:26)
--- NOTE | 2019-04-06 12:49 | ER ---
Nurse's Notes [facility] Name: Maria Fernanda Toro Age: 78 yrs Sex: Female : 1940 Arrival Date: 04/06/2019 Time: 08:59 Bed 2 Private MD: Diagnosis: Abdominal and pelvic pain Presentation: 04/06 09:18 Presenting complaint: Child states: left sided abdominal pain since this morning, jl7 denies N/V/D, last BM yesterday and normal. Mental status is baseline, A\T\Ox1 to self. Transition of care: patient was not received from another setting of care. Onset of symptoms was April 06, 2019. Risk Assessment: Do you want to hurt yourself or someone else? Patient reports no desire to harm self or others. Initial Sepsis Screen: Does the patient meet any 2 criteria? No. Patient's initial sepsis screen is negative. Does the patient have a suspected source of infection? No. Patient's initial sepsis screen is negative. Care prior to arrival: None. 09:18 Method Of Arrival: Ambulatory [facility] 09:18 Acuity: MARIUM 3 jl7 Triage Assessment: 09:22 General: Appears in no apparent distress. uncomfortable, Behavior is calm, cooperative. jl7 Pain: Complains of pain in epigastric area and left upper quadrant Unable to use pain scale. Does not appear to understand pain scale. Patient appears to be grimacing, FLACC scale score is 4 out of 10. Neuro: Level of Consciousness is awake, alert, obeys commands, Oriented to person. Cardiovascular: Heart tones present Patient's skin is warm and dry. Rhythm is sinus bradycardia with unifocal PVCs. Respiratory: Airway is patent Respiratory effort is even, labored, Respiratory pattern is symmetrical, tachypnea. GI: Abdomen is non-distended, Stools are reported to be normal. Last BM was April 05, 2019. Bowel sounds present X 4 quads. Abd is soft Abdomen is tender to palpation in epigastric area and left upper quadrant. : No signs and/or symptoms were reported regarding the genitourinary system. Derm: Skin is pink, warm \T\ dry. Musculoskeletal: No signs and/or symptoms reported regarding the musculoskeletal system. Historical: - Allergies: :22 adhesive tape-silicones; jl7 09:22 Ativan; jl7 - PMHx: 09:22 Atrial Fib; COPD; Dementia; High Cholesterol; Hypertension; Hypothyroidism; jl7 - PSHx: 09:22 Hysterectomy; Appendectomy; Cholecystectomy; jl7 - Immunization history:: Adult Immunizations up to date. - Social history:: Smoking status: Patient/guardian denies using tobacco. - Ebola Screening: : No symptoms or risks identified at this time. Screenin:10 Abuse screen: Denies threats or abuse. Denies injuries from another. Nutritional jl7 screening: No deficits noted. Tuberculosis screening: No symptoms or risk factors identified. Fall Risk No fall in past 12 months (0 pts). Secondary diagnosis (15 points) Alzheimer's, IV access (20 points). Ambulatory Aid- None/Bed Rest/Nurse Assist (0 pts). Gait- Weak (10 pts.). Mental Status- Overestimates/Forgets Limitations (15 pts.). Total Smallwood Fall Scale indicates High Risk Score (45 or more points). Fall prevention measures have been instituted. Side Rails Up X 2 Placed Close to Nursing Station Frequent Obs/Assessments Occuring Family Present and informed to notify staff if the need to leave the bedside As available patient and family educated on Fall Prevention Program and Strategies. Assessment: 09:10 General: see triage assessment. jl7 10:30 Reassessment: Patient appears in no apparent distress at this time. No changes from jl7 previously documented assessment. Patient and/or family updated on plan of care and expected duration. Pain level reassessed. 12:00 Reassessment: Pt extremely agitated, attempting to hit staff, refusing CT scan, jl7 refusing any medications, ERD notified. Pt sitting in wheelchair in room with daughter and caregiver at bedside. 12:40 Reassessment: Pt's daughter reports she is getting worse and requests discharge at this jl7 time. ERD notified. Vital Signs: 09:22 BP 161 / 87; Pulse 58; Resp 22 S; Temp 97.4(TE); Pulse Ox 100% on R/A; jl7 09:59 BP 149 / 73; Pulse 55; Resp 21 S; Pulse Ox 100% on R/A; jl7 ED Course: 08:59 Patient arrived in ED. as 09:04 Monisha Akbar RN is Primary Nurse. jl7 09:06 Narciso Manley MD is Attending Physician. kdr 09:21 Triage completed. jl7 09:22 Arm band placed on right wrist. jl7 09:25 Patient has correct armband on for positive identification. Placed in gown. Bed in low jl7 position. Call light in reach. Side rails up X 1. Adult w/ patient. surveillance system monitor on. Pulse ox on. NIBP on. Warm blanket given. 10:00 Initial lab(s) drawn, by me, sent to lab. Inserted saline lock: 22 gauge in right jl7 wrist, using aseptic technique. Blood collected. 10:11 Radiology exam delayed due to lab results not completed at this time. (BUN/Creatinine). md1 10:28 Radiology exam delayed due to lab results not completed at this time. (BUN/Creatinine). 11:35 Radiology exam delayed due to patient agitated and refusing to get in stretcher to come to CT at this time. 13:11 No provider procedures requiring assistance completed. IV discontinued, intact, jl7 bleeding controlled, No redness/swelling at site. Pressure dressing applied. Administered Medications: 13:09 Not Given (Patient Refused): Benadryl 12.5 mg IVP once jl7 Outcome: 12:49 Discharge ordered by . kdr 13:11 Discharged to home ambulatory. jl7 13:11 Condition: stable 13:11 Discharge instructions given to patient, family, Instructed on discharge instructions, follow up and referral plans. Demonstrated understanding of instructions, follow-up care. 13:12 Patient left the ED. jl7 Signatures: Narciso Manley MD MD [facility] Mike Peter Marilin Barraza Jahala, RN RN jl7 Celia Sharif Corrections: (The following items were deleted from the chart) 10:16 10:00 General: see triage assessment. jl7 jl7
--- NOTE | 2019-04-06 12:50 | EDPHYS ---
Physician Documentation [facility] Name: Maria Fernanda Toro Age: 78 yrs Sex: Female : 1940 Arrival Date: 04/06/2019 Time: 08:59 Bed 2 Private MD: ED Physician Narciso Manley HPI: 04/06 10:32 This 78 yrs old Female presents to ER via Ambulatory with complaints of kdr Abdominal Pain. 10:32 The patient presents with abdominal pain in the left upper quadrant. Onset: The kdr symptoms/episode began/occurred gradually, yesterday. The symptoms do not radiate. Associated signs and symptoms: none. The symptoms are described as achy, dull, intermittent, vague, waxing/waning. Modifying factors: The symptoms are alleviated by nothing, the symptoms are aggravated by touching the area. Severity of pain: At its worst the pain was mild in the emergency department the pain has improved moderately. The patient has not experienced similar symptoms in the past. The patient has not recently seen a physician. The patient has baseline dementia and is hard to get a consistent history of the abdominal pain. The history and other detailed information is supplied by the family. Historical: - Allergies: 09:22 adhesive tape-silicones; jl7 09:22 Ativan; jl7 - PMHx: 09:22 Atrial Fib; COPD; Dementia; High Cholesterol; Hypertension; Hypothyroidism; jl7 - PSHx: 09:22 Hysterectomy; Appendectomy; Cholecystectomy; jl7 - Immunization history:: Adult Immunizations up to date. - Social history:: Smoking status: Patient/guardian denies using tobacco. - Ebola Screening: : No symptoms or risks identified at this time. ROS: 10:32 Constitutional: Negative for fever, chills, and weight loss - family supplies health kdr history Eyes: Negative for injury, pain, redness, and discharge, Neck: Negative for injury, pain, and swelling, Cardiovascular: Negative for chest pain, palpitations, and edema, Respiratory: Negative for shortness of breath, cough, wheezing, and pleuritic chest pain, Back: Negative for injury and pain, MS/Extremity: Negative for injury and deformity, Skin: Negative for injury, rash, and discoloration, Allergy/Immunology: Negative for hives, rash, and allergies, Endocrine: Negative for neck swelling, polydipsia, polyuria, polyphagia, and marked weight changes. 10:32 Abdomen/GI: Positive for abdominal pain, of the left upper quadrant. Exam: 10:32 Constitutional: This is a well developed, well nourished patient who is awake, alert, kdr and in no acute distress. Head/Face: Normocephalic, atraumatic. Eyes: Pupils equal round and reactive to light, extra-ocular motions intact. Lids and lashes normal. Conjunctiva and sclera are non-icteric and not injected. Cornea within normal limits. Periorbital areas with no swelling, redness, or edema. Neck: Trachea midline, no thyromegaly or masses palpated, and no cervical lymphadenopathy. Supple, full range of motion without nuchal rigidity, or vertebral point tenderness. No Meningismus. Chest/axilla: Normal chest wall appearance and motion. Nontender with no deformity. No lesions are appreciated. Cardiovascular: Regular rate and rhythm with a normal S1 and S2. No gallops, murmurs, or rubs. Normal PMI, no JVD. No pulse deficits. Respiratory: Lungs have equal breath sounds bilaterally, clear to auscultation and percussion. No rales, rhonchi or wheezes noted. No increased work of breathing, no retractions or nasal flaring. Abdomen/GI: Soft, non-tender, with normal bowel sounds. No distension or tympany. No guarding or rebound. No evidence of tenderness throughout. Back: No spinal tenderness. No costovertebral tenderness. Full range of motion. Skin: Warm, dry with normal turgor. Normal color with no rashes, no lesions, and no evidence of cellulitis. MS/ Extremity: Pulses equal, no cyanosis. Neurovascular intact. Full, normal range of motion. Psych: Awake, alert, with orientation to person, place and time. Behavior, mood, and affect are within normal limits. 10:32 Musculoskeletal/extremity: 10:32 Neuro: The patient has baseline dementia - mild, is not able to give accurate history. Vital Signs: 09:22 BP 161 / 87; Pulse 58; Resp 22 S; Temp 97.4(TE); Pulse Ox 100% on R/A; jl7 09:59 BP 149 / 73; Pulse 55; Resp 21 S; Pulse Ox 100% on R/A; jl7 MDM: 12:49 Patient medically screened. kdr 19:21 Data reviewed: vital signs, nurses notes, lab test result(s), radiologic studies. kdr Counseling: I had a detailed discussion with the patient and/or guardian regarding: the historical points, exam findings, and any diagnostic results supporting the discharge/admit diagnosis, lab results, radiology results. 04/06 10:02 Order name: Basic Metabolic Panel; Complete Time: 11:48 [facility] 04/06 10:02 Order name: CBC with Diff; Complete Time: 10:39 [facility] 04/06 10:02 Order name: Creatinine for Radiology; Complete Time: 10:39 [facility] 04/06 10:02 Order name: Hepatic Function; Complete Time: 11:48 [facility] 04/06 10:02 Order name: Lipase; Complete Time: 11:48 [facility] 04/06 10:02 Order name: Basic Metabolic Panel [facility] 04/06 10:02 Order name: IV Saline Lock; Complete Time: 19:21 [facility] 04/06 10:02 Order name: Labs collected and sent; Complete Time: 19:21 [facility] 04/06 10:02 Order name: CBC with Diff [facility] 04/06 10:02 Order name: Creatinine for Radiology [facility] 04/06 10:02 Order name: Hepatic Function [facility] 04/06 10:02 Order name: Lipase [facility] 04/06 10:02 Order name: IV Saline Lock; Complete Time: 19:21 [facility] 04/06 10:02 Order name: Labs collected and sent; Complete Time: 19:21 kdr Administered Medications: 13:09 Not Given (Patient Refused): Benadryl 12.5 mg IVP once 7 Disposition: 04/06/19 12:49 Discharged to Home. Impression: Abdominal and pelvic pain. - Condition is Stable. - Discharge Instructions: Abdominal Pain, Adult, [id number]. - Medication Reconciliation Form, Thank You Letter form. - Follow up: Private Physician; When: 2 - 3 days; Reason: If symptoms return, Further diagnostic work-up, Recheck today's complaints, Continuance of care, Re-evaluation by your physician. - Problem is new. - Symptoms are resolved. Signatures: Dispatcher [employer] Narciso Alvarez MD MD kdr Marta Merchant, WORD PROCESSOR TECHNICIAN-C WORD PROCESSOR TECHNICIAN-Csnw Akbar, Jahala, RN RN jl7 Corrections: (The following items were deleted from the chart) 13:12 12:49 04/06/2019 12:49 Discharged to Home. Impression: Abdominal and pelvic pain. jl7 Condition is Stable. Forms are Medication Reconciliation Form, Thank You Letter, Antibiotic Education, Prescription Opioid Use. Follow up: Private Physician; When: 2 - 3 days; Reason: If symptoms return, Further diagnostic work-up, Recheck today's complaints, Continuance of care, Re-evaluation by your physician. Problem is new. Symptoms are resolved. kdr
[2019-04-06 13:22] VITALS: TEMP 97.4; O2SAT 100
[2019-04-06 13:23] VITALS: BP 149/73
== END 2019-04-06 13:12 | disposition home or self-care (01) ==
LOC: ER 08:58
DX: R10.9 Unspecified abdominal pain (principal); R10.2 Pelvic and perineal pain; Z88.8 Allergy status to other drugs, medicaments and biological substances
CPT/HCPCS: 36415; 80048; 80076; 83690; 85025; J1200

== ENCOUNTER 2019-09-07 19:51 | Inpatient (IN) | payer OTHER ==
[2019-09-07] MEDS ORDERED: ACETAMINOPHEN 650MG/RECT SUPP PR ONE (20:16)
--- NOTE | 2019-09-07 20:35 | RAD REPORT ---
EXAM DESCRIPTION: Swapna Single View09/07/2019 8:22 pm CLINICAL HISTORY: sob COMPARISON: 2019 FINDINGS: Small opacity within left upper lobe is unchanged consistent with scarring. The lungs appear clear of acute infiltration. The heart is normal size IMPRESSION: No acute abnormalities displayed
[2019-09-07 20:57] LABS: Absolute Lymphocytes (CBC) 3.1 K/uL (0.7-4.9); Basophils % 0.8 % (0-1.3); Hematocrit 48.2 % (36.0-45.0); Lymphocytes % 28.8 % (15.3-44.8); MPV 9.2 fL (7.6-11.3); RBC Red Blood Cell Count 4.81 M/uL (3.86-4.86)
[2019-09-07 20:58] LABS: Urine Amorphous Sediment 1+ /HPF (NONE SEEN); Urine Bacteria 20-50 /HPF (<20); Urine Culture Reflex Order REFLEXED; Urine Mucus 1+ /HPF (NONE SEEN); Urine RBC <5 /HPF (NONE SEEN)
[2019-09-07 21:01] LABS: Protime INR 0.97
--- NOTE | 2019-09-07 21:01 | RAD REPORT ---
EXAM DESCRIPTION: CT - Head Brain Wo Cont - 09/07/2019 8:45 pm CLINICAL HISTORY: declining state/confusion COMPARISON: 2019 TECHNIQUE: Computed axial tomography of the head was obtained. IV contrast was not requested. All CT scans are performed using dose optimization technique as appropriate and may include automated exposure control or mA/KV adjustment according to patient size. FINDINGS: An intracranial bleed is not seen . The ventricles are normal in caliber. No extra-axial fluid collection is noted. Mild to moderate low-density areas within periventricular, deep and subcortical white matter likely r epresent ischemic changes secondary to small vessel disease. Chronic opacification of the right maxillary sinus IMPRESSION: No acute intracranial abnormality is seen. If patient's symptoms persist MRI of the bra in would be recommended.
[2019-09-07 21:04] LABS: ALT/SGPT 17 U/L (12-78); AST/SGOT 15 U/L (15-37); Albumin 3.6 g/dL (3.4-5.0); Alkaline Phosphatase 65 U/L (45-117); BUN Blood Urea Nitrogen 16 mg/dL (7-18); Bicarbonate 31 mmol/L (21-32); Bilirubin Direct 0.1 mg/dL (0-0.2); Bilirubin Total 0.5 mg/dL (0.2-1.0); CKMB Creatine Kinase MB < 1.0 ng/mL (0.3-3.6); Creatine Phosphokinase 51 U/L (26-192); Glucose Level 133 mg/dL (74-106); Lipase 88 U/L (73-393); Magnesium 2.4 mg/dL (1.8-2.4); NT PRO-BNP 617 pg/mL (<450); Potassium 3.8 mmol/L (3.5-5.1); Protein, Total 7.7 g/dL (6.4-8.2); Sodium Level 145 mmol/L (136-145); Troponin (Emerg Dept Use Only) < 0.02 ng/mL (0.0-0.045)
[2019-09-07 21:07] LABS: Urine Blood NEGATIVE (NEG); Urine Glucose NEGATIVE (NEG); Urine Protein TRACE (NEG); Urine Specific Gravity 1.025 (1.005-1.030)
--- NOTE | 2019-09-07 21:10 | ER ---
Nurse's Notes [facility] Name: Maria Fernanda Toro Age: 78 yrs Sex: Female : 1940 Arrival Date: 09/07/2019 Time: 20:01 Bed 3 Private MD: Diagnosis: Altered mental status, unspecified;Urinary tract infection, site not specified Presentation: 09/06 19:52 Chief complaint: EMS states: that pt woke up this am not opening eyes and not wanting fc to sit up; they were told that caregivers. Pt has hx of Dementia and Alzh. Pt is not normally oriented and is always combative. EMS was originally called at 1700 by caregiver stating that she was "not normal", not eating and not drinking, upon arrival of EMS they were able to get pt to drink water and protein shake. When daughter arrived in town EMS was recalled and family insisted that she be brought to ER. Coronavirus screen: Patient denies a cough. Patient denies shortness of breath or difficulty breathing. Patient reports a measured and/or subjective temperature greater than 100.4F. Patient denies travel on a cruise ship or to a country the [facility] currently lists as an affected area. Patient denies contact with known and/or suspected case of COVID-19. Ebola Screen: Patient negative for fever greater than or equal to 101.5 degrees Fahrenheit, and additional compatible Ebola Virus Disease symptoms Patient denies exposure to infectious person. Patient denies travel to an Ebola-affected area in the 21 days before illness onset. Initial Sepsis Screen: Does the patient meet any 2 criteria? RR > 20 per min. Temp <36.0*C (96.8*F)) or > 38.3*C (100.9*F). Yes Does the patient have a suspected source of infection? Yes: Other: unknown If YES to both, name of provider notified: Kevin Buckley MD. Risk Assessment: Do you want to hurt yourself or someone else? Patient reports no desire to harm self or others. Onset of symptoms was September 07, 2019. Transition of care: patient was not received from another setting of care. 19:52 Method Of Arrival: EMS: [facility] fc 19:52 Acuity: MARIUM 3 fc Historical: - Allergies: 20:59 adhesive tape-silicones; fc 20:59 Ativan; fc - Home Meds: 20:59 Perforomist 20 mcg/2 mL inhalation nebu 2 mL 2 times per day [Active]; aspirin 81 mg fc Oral chew 1 tab once daily [Active]; memantine 5 mg Oral tab 1 tabs nightly [Active]; mirtazapine 15 mg Oral tab 1 tab nightly [Active]; bupropion HCl 300 mg Oral Tb24 1 tab once daily [Active]; prednisone 10 mg Oral tab 1 tab 2 times per day [Active]; theophylline 200 mg Oral Tb12 1 tab nightly [Active]; montelukast 10 mg Oral tab 1 tab nightly [Active]; donepezil 10 mg Oral tab 1 tab nightly [Active]; simvastatin 20 mg Oral tab 1 tab nightly [Active]; sotalol 80 mg Oral tab 0.5 tab 2 times per day [Active]; vit d3 1000 iu daily 5000 units nightly [Active]; divalproex 125 mg oral cpSP 4 caps nightly [Active]; - PMHx: 20:59 Dementia; Alzheimers; Atrial Fib; COPD; High Cholesterol; Hypothyroidism; Depression; fc Myocardial infarction; O2 dependant; Hypertension; - PSHx: 20:59 Hysterectomy; Appendectomy; Cholecystectomy; Carpal Tunnel Repair; fc - Immunization history:: Last tetanus immunization: up to date Pneumococcal vaccine is up to date, Flu vaccine is up to date. - Social history:: Smoking status: Patient/guardian denies using tobacco, the patient reports quitting approximately 1 years ago. Screenin:52 Abuse screen: Denies threats or abuse. Nutritional screening: No deficits noted. Tuberculosis screening: No symptoms or risk factors identified. Fall Risk Fall in past 12 months (25 points). Secondary diagnosis (15 points) Alzheimer's, dementia, No IV (0 pts). Ambulatory Aid- None/Bed Rest/Nurse Assist (0 pts). Gait- Impaired (20 pts.). Mental Status- Overestimates/Forgets Limitations (15 pts.). Total Smallwood Fall Scale indicates High Risk Score (45 or more points). Fall prevention measures have been instituted. Side Rails Up X 2 Placed Close to Nursing Station Frequent Obs/Assessments Occuring As available patient and family educated on Fall Prevention Program and Strategies. Assessment: 20:10 General: Appears uncomfortable, ill, Behavior is responsive to pain. Pain: Unable to bb use pain scale. FLACC scale score is 2 out of 10. Neuro: Level of Consciousness is responsive to pain. Cardiovascular: Heart tones S1 S2 present Capillary refill < 3 seconds. Respiratory: Airway is patent Respiratory effort is labored, Respiratory pattern is tachypnea Breath sounds are diminished bilaterally. Respiratory: GI: Abdomen is round firm to touch. Derm: Skin is fragile, is thin, Skin is dry, Skin is pale, Skin temperature is warm. Musculoskeletal: Circulation, motion, and sensation intact. 21:00 Reassessment: No changes from previously documented assessment. awaiting diagnostic bb results. 22:00 Reassessment: Pt appears to be sleeping, resp less labored, bilateral breath sounds bb diminished, IV site intact, patent, with fluids infusing, hospitalist at bedside, pt to be admitted. 22:35 Reassessment: daughter Ariane Fonseca phone number [phone]. bb 23:08 Reassessment: pt resting quietly, eyes closed, resp labored, cindi breath sounds bb diminished, O2 sats 95% RA, IV site intact, patent, with fluids infusing, awaiting receiving nurse to call for report for transfer to room 414. 23:18 Reassessment: report called to Page CASTRO for room 414. bb 09/07 00:03 Reassessment: pt resting quietly, resp less labored, IV site intact, patent, awaiting bb transfer for Page RN. 00:52 Reassessment: pt respirations appear more labored, bilateral breath sounds with faint bb wheezing, Dr Busby notified. Vital Signs: 09/06 19:52 BP 137 / 99; Pulse 78; Resp 22; Temp 101.9(R); Pulse Ox 100% on 2 lpm NC; Weight 63.5 fc kg; Height 5 ft. 4 in. (162.56 cm) (R); Pain 0/10; 21:16 BP 116 / 81; Pulse 72; Resp 21 S; Pulse Ox 100% on R/A; Pain 0/10; bb 21:16 Temp 100.7(R); bb 22:00 BP 106 / 53; Pulse 65; Resp 20 S; Pulse Ox 100% on R/A; bb 22:22 Temp 99.6(R); bb 23:05 BP 102 / 67; Pulse 65; Resp 16 S; Pulse Ox 93% on R/A; bb 09/07 00:04 BP 97 / 59; Pulse 62; Resp 14 S; Pulse Ox 95% on R/A; bb 00:50 BP 105 / 74; Pulse 64; Resp 20 S; Temp 99.1(O); Pulse Ox 96% on R/A; bb 09/06 19:52 Body Mass Index 24.03 (63.50 kg, 162.56 cm) fc [place] Coma Score: 09/06 20:10 Eye Response: none(1). Verbal Response: incomprehensible(2). Motor Response: withdraws bb from pain(4). Total: 7. 23:12 Eye Response: none(1). Verbal Response: incomprehensible(2). Motor Response: withdraws bb from pain(4). Total: 7. ED Course: 19:52 Arm band placed on Patient placed in an exam room, on a stretcher. fc 19:52 Patient has correct armband on for positive identification. Placed in gown. Bed in low fc position. Side rails up X2. weigher bulker on. Pulse ox on. NIBP on. 19:52 No provider procedures requiring assistance completed. fc 20:01 Patient arrived in ED. tw4 20:03 Kevin Buckley MD is Attending Physician. tw4 20:14 Triage completed. fc 20:22 XRAY CXR (1 view) In Process Unspecified. EDMS 20:25 Inserted saline lock: 22 gauge in right antecubital area, using aseptic technique. bb 20:40 Vale Torres, GLORIA is Primary Nurse. bb 20:46 CT Head Brain wo Cont In Process Unspecified. EDMS 20:47 BMP Sent. bb 20:47 Blood Culture Adult (2) Sent. bb 21:09 Jaime Busby MD is Hospitalizing Provider. tw4 21:41 Hospitalizing Provider role handed off by Jaime Busby MD tw4 21:41 Donell Mack is Hospitalizing Provider. tw4 22:14 Patient admitted, IV remains in place. bb 23:51 Hospitalizing Provider role handed off by Donell Mack tw4 23:51 Prince Matson MD is Hospitalizing Provider. tw4 Administered Medications: 20:20 Drug: Tylenol Suppository 650 mg Route: AR; bb 21:00 Follow up: Response: Temperature is decreased bb 21:00 Drug: NS 0.9% 1000 ml Route: IV; Rate: 1 bolus; Site: right antecubital; bb 23:45 Follow up: IV Status: Completed infusion; IV Intake: 1000ml bb 21:00 Drug: Rocephin 1 grams Route: IV; Rate: calculated rate; Site: right antecubital; bb 21:05 Follow up: IV Status: Completed infusion; IV Intake: 10ml bb 22:07 Drug: AZITHromycin 500 mg Route: IVPB; Infused Over: 1 hrs; Site: right antecubital; bb 23:09 Follow up: IV Status: Completed infusion; IV Intake: 250ml bb Intake: 21:05 IV: 10ml; Total: 10ml. bb 23: IV: 250ml; Total: 260ml. bb 23:45 IV: 1000ml; Total: 1260ml. bb Outcome: 21:10 Decision to Hospitalize by Provider. tw4 22:13 Instructed on pt unresponsive to voice unable to give instructions on admission, family bb notified by Tosha CASTRO charge nurse 22:14 Condition: stable bb 23:19 Admitted to Tele accompanied by tech, via stretcher, room 414, with chart, Report bb called to Page CASTRO 09/07 00:54 Patient left the ED. bb Signatures: Dispatcher [employer] EDMS Tosha Adams, RN RN fc Vale Torres RN RN bb Kevin Buckley MD MD tw4 Corrections: (The following items were deleted from the chart) 09/06 21:01 19:52 Immunization history: Last tetanus immunization: unknown, Flu vaccine status is fc unknown. fc 21: 19:52 Social history: Smoking status: unknown fc fc
--- NOTE | 2019-09-07 21:11 | EDPHYS ---
Physician Documentation [facility] Name: Maria Fernanda Toro Age: 78 yrs Sex: Female : 1940 Arrival Date: 09/07/2019 Time: 20:01 Bed 3 Private MD: ED Physician Kevin Buckley HPI: 09/06 23:38 This 78 yrs old Female presents to ER via EMS with complaints of altered tw4 mental status. 23:38 The patient presents with decreased responsiveness. Onset: The symptoms/episode tw4 began/occurred this morning. Possible causes: unknown. Associated signs and symptoms: The patient has no apparent associated signs or symptoms. Current symptoms: In the emergency department the patient's symptoms are unchanged from the initial presentation. Patient's baseline: Neuro: alert but confused, Motor: no deficits, Ambulation: walks with assist only, Speech: normal, The patient has a previous history of. The patient has not experienced similar symptoms in the past. Historical: - Allergies: 20:59 adhesive tape-silicones; fc 20:59 Ativan; fc - Home Meds: 20:59 Perforomist 20 mcg/2 mL inhalation nebu 2 mL 2 times per day [Active]; aspirin 81 mg fc Oral chew 1 tab once daily [Active]; memantine 5 mg Oral tab 1 tabs nightly [Active]; mirtazapine 15 mg Oral tab 1 tab nightly [Active]; bupropion HCl 300 mg Oral Tb24 1 tab once daily [Active]; prednisone 10 mg Oral tab 1 tab 2 times per day [Active]; theophylline 200 mg Oral Tb12 1 tab nightly [Active]; montelukast 10 mg Oral tab 1 tab nightly [Active]; donepezil 10 mg Oral tab 1 tab nightly [Active]; simvastatin 20 mg Oral tab 1 tab nightly [Active]; sotalol 80 mg Oral tab 0.5 tab 2 times per day [Active]; vit d3 1000 iu daily 5000 units nightly [Active]; divalproex 125 mg oral cpSP 4 caps nightly [Active]; - PMHx: 20:59 Dementia; Alzheimers; Atrial Fib; COPD; High Cholesterol; Hypothyroidism; Depression; fc Myocardial infarction; O2 dependant; Hypertension; - PSHx: 20:59 Hysterectomy; Appendectomy; Cholecystectomy; Carpal Tunnel Repair; fc - Immunization history:: Last tetanus immunization: up to date Pneumococcal vaccine is up to date, Flu vaccine is up to date. - Social history:: Smoking status: Patient/guardian denies using tobacco, the patient reports quitting approximately 1 years ago. ROS: 23:38 Neuro: Positive for altered mental status, Negative for gait disturbance, headache, tw4 hearing loss, seizure activity, speech changes. Exam: 23:38 Constitutional: This is a well developed, well nourished patient who is awake, alert, tw4 and in no acute distress. Head/Face: Normocephalic, atraumatic. Chest/axilla: Normal chest wall appearance and motion. Nontender with no deformity. No lesions are appreciated. Cardiovascular: Regular rate and rhythm with a normal S1 and S2. No gallops, murmurs, or rubs. Normal PMI, no JVD. No pulse deficits. Respiratory: Lungs have equal breath sounds bilaterally, clear to auscultation and percussion. No rales, rhonchi or wheezes noted. No increased work of breathing, no retractions or nasal flaring. Abdomen/GI: Soft, non-tender, with normal bowel sounds. No distension or tympany. No guarding or rebound. No evidence of tenderness throughout. 23:38 Neuro: Orientation: unable to test, Mentation: confused, unable to follow commands, somnolent, responsive to pain, Memory: is normal, Cranial nerves: grossly normal. Vital Signs: 19:52 BP 137 / 99; Pulse 78; Resp 22; Temp 101.9(R); Pulse Ox 100% on 2 lpm NC; Weight 63.5 fc kg; Height 5 ft. 4 in. (162.56 cm) (R); Pain 0/10; 21:16 BP 116 / 81; Pulse 72; Resp 21 S; Pulse Ox 100% on R/A; Pain 0/10; bb 21:16 Temp 100.7(R); bb 22:00 BP 106 / 53; Pulse 65; Resp 20 S; Pulse Ox 100% on R/A; bb 22:22 Temp 99.6(R); bb 23:05 BP 102 / 67; Pulse 65; Resp 16 S; Pulse Ox 93% on R/A; bb 09/07 00:04 BP 97 / 59; Pulse 62; Resp 14 S; Pulse Ox 95% on R/A; bb 00:50 BP 105 / 74; Pulse 64; Resp 20 S; Temp 99.1(O); Pulse Ox 96% on R/A; bb 09/06 19:52 Body Mass Index 24.03 (63.50 kg, 162.56 cm) fc [place] Coma Score: 09/06 20:10 Eye Response: none(1). Verbal Response: incomprehensible(2). Motor Response: withdraws bb from pain(4). Total: 7. 23:12 Eye Response: none(1). Verbal Response: incomprehensible(2). Motor Response: withdraws bb from pain(4). Total: 7. MDM: 20:13 Patient medically screened. tw4 23:49 Differential Diagnosis: CVA, electrolyte abnormality. Data reviewed: vital signs, tw4 nurses notes. Data interpreted: Pulse oximetry: Interpretation: normal. Test interpretation: by ED physician or midlevel provider: ECG, plain radiologic studies. Counseling: I had a detailed discussion with the patient and/or guardian regarding: the historical points, exam findings, and any diagnostic results supporting the discharge/admit diagnosis. 23:51 Data reviewed: lab test result(s), cardiac enzymes, CBC, electrolytes, hepatic panel, tw4 EKG, radiologic studies, CT scan, plain films. Physician consultation: Prince Dano PRATT regarding admission, to the telemetry unit. patient's condition, and will see patient in ED. 09/06 20:06 Order name: Blood Culture Adult (2) [facility] 09/06 20:06 Order name: BMP 09/06 20:06 Order name: CBC with Diff; Complete Time: 21:06 [facility] 09/06 21:06 Interpretation: Normal except: HGB 15.8; HCT 48.2; MCV 100.2. [facility] 09/06 20:06 Order name: Ckmb; Complete Time: 21:06 [facility] 09/06 21:07 Interpretation: Within normal limits: CKMB < 1.0. 09/06 20:06 Order name: CPK; Complete Time: 21:06 [facility] 09/06 21:07 Interpretation: Within normal limits: CPK 51. [facility] 09/06 20:06 Order name: Hepatic Function; Complete Time: 21:06 [facility] 09/06 21:06 Interpretation: Normal except: GLOB 4.1; A/G 0.9. [facility] 09/06 20:06 Order name: Lipase; Complete Time: 21:06 [facility] 09/06 21:07 Interpretation: Within normal limits: LIP 88. [facility] 09/06 20:06 Order name: Magnesium; Complete Time: 21:06 [facility] 09/06 20:06 Order name: NT PRO-BNP; Complete Time: 21:06 [facility] 09/06 21:06 Interpretation: Normal except: NT PRO-BNP 617. [facility] 09/06 20:06 Order name: PT-INR; Complete Time: 21:06 [facility] 09/06 21:07 Interpretation: Within normal limits: PT 11.5. [facility] 09/06 20:06 Order name: Ptt, Activated; Complete Time: 21:06 [facility] 09/06 20:06 Order name: Troponin (emerg Dept Use Only); Complete Time: 21:06 [facility] 09/06 21:07 Interpretation: Within normal limits: TROPED < 0.02. [facility] 09/06 20:06 Order name: Urine Microscopic Only; Complete Time: 21:06 [facility] 09/06 21:06 Interpretation: Normal except: UBACT 20-50. [facility] 09/06 20:07 Order name: Blood Culture [facility] 09/06 20:06 Order name: XRAY CXR (1 view); Complete Time: 21:06 [facility] 09/06 20:06 Order name: CT Head Brain wo Cont; Complete Time: 21:06 [facility] 09/06 21:08 Interpretation: No acute disease. [facility] 09/06 20:07 Order name: Basic Metabolic Panel; Complete Time: 21:06 [facility] 09/06 21:06 Interpretation: Normal except: GLUC 133; CRE 1.51; GFR 34. [facility] 09/06 20:20 Order name: COVID-19 [facility] 09/06 20:20 Order name: Flu [facility] 09/06 20:20 Order name: Strep [facility] 09/06 20:44 Order name: Urine Dipstick--Ancillary (enter results) [facility] 09/06 20:59 Order name: Urine Culture [facility] 09/06 21:00 Order name: Lactate 09/06 21:19 Order name: Throat Culture [facility] 09/06 21:24 Order name: ABG Arterial Blood Gas [facility] 09/06 21:36 Order name: Ammonia [facility] 09/06 21:37 Order name: Procalcitonin [facility] 09/06 21:39 Order name: Lactate [facility] 09/06 21:39 Order name: Thyroid Stimulating Hormone [facility] 09/06 20:06 Order name: EKG; Complete Time: 20:08 tw4 09/06 20:06 Order name: Cardiac monitoring; Complete Time: 20:41 tw4 09/06 20:06 Order name: EKG - Nurse/Tech; Complete Time: 22:15 tw4 09/06 20:06 Order name: IV Saline Lock; Complete Time: 20:41 tw4 09/06 20:06 Order name: Labs collected and sent; Complete Time: 20:41 tw4 09/06 20:06 Order name: O2 Per Protocol; Complete Time: 20:41 tw4 09/06 20:06 Order name: O2 Sat Monitoring; Complete Time: 20:41 tw4 09/06 20:06 Order name: Urine Dipstick-Ancillary (obtain specimen); Complete Time: 22:14 tw4 09/06 20:20 Order name: Labs collected and sent; Complete Time: 20:41 tw4 09/06 20:20 Order name: O2 Per Protocol; Complete Time: 20:41 tw4 EC:38 Rate is 71 beats/min. Rhythm is regular with Right bundle branch block. QRS Recluse is tw4 Normal. FL interval is normal. QRS interval is normal. QT interval is normal. No Q waves. No ST changes noted. Clinical impression: NSR w/ Non-specific ST/T Changes and RBBB. Interpreted by me. Reviewed by me. Administered Medications: 20:20 Drug: Tylenol Suppository 650 mg Route: FL; bb 21:00 Follow up: Response: Temperature is decreased bb 21:00 Drug: NS 0.9% 1000 ml Route: IV; Rate: 1 bolus; Site: right antecubital; bb 23:45 Follow up: IV Status: Completed infusion; IV Intake: 1000ml bb 21:00 Drug: Rocephin 1 grams Route: IV; Rate: calculated rate; Site: right antecubital; bb 21:05 Follow up: IV Status: Completed infusion; IV Intake: 10ml bb 22:07 Drug: AZITHromycin 500 mg Route: IVPB; Infused Over: 1 hrs; Site: right antecubital; bb 23:09 Follow up: IV Status: Completed infusion; IV Intake: 250ml bb Disposition: 09/07/19 21:10 Hospitalization ordered by Prince Dano for Inpatient Admission. Preliminary diagnosis are Altered mental status, unspecified, Urinary tract infection, site not specified. - Bed requested for Telemetry/MedSurg (Inpatient). - Status is Inpatient Admission. bb - Condition is Stable. - Problem is new. - Symptoms are unchanged. Signatures: Dispatcher [employer] EDMS Tosha Adams RN RN Vale Torres RN RN bb Bessie Delgado RN RN Kevin Buckley MD MD tw4 Corrections: (The following items were deleted from the chart) 20:47 20:20 [facility] [phone]/ ordered. tw4 bb 21:01 19:52 Immunization history: Last tetanus immunization: unknown, Flu vaccine status is fc unknown. 21:01 19:52 Social history: Smoking status: unknown [facility] 21:41 21:10 Hospitalization Ordered by Jaime Busby MD for Inpatient Admission. Preliminary tw4 diagnosis is Altered mental status, unspecified; Urinary tract infection, site not specified. Bed requested for Telemetry/MedSurg (Inpatient). Status is Inpatient Admission. Condition is Stable. Problem is new. Symptoms are unchanged. tw4 22:15 21:41 09/07/2019 21:10 Hospitalization Ordered by Donell Mack for Inpatient Admission. Preliminary diagnosis is Altered mental status, unspecified; Urinary tract infection, site not specified. Bed requested for Telemetry/MedSurg (Inpatient). Status is Inpatient Admission. Condition is Stable. Problem is new. Symptoms are unchanged. tw4 23:51 22:15 09/07/2019 21:10 Hospitalization Ordered by Donell Mack for Inpatient tw4 Admission. Preliminary diagnosis is Altered mental status, unspecified; Urinary tract infection, site not specified. Bed requested for Telemetry/MedSurg (Inpatient). Status is Inpatient Admission. Condition is Stable. Problem is new. Symptoms are unchanged. 23:52 23:49 Physician consultation: Donell Mack and will see patient tw4 tw4 09/07 00:54 04/17 23:51 09/07/2019 21:10 Hospitalization Ordered by Prince Dano PRATT for Inpatient bb Admission. Preliminary diagnosis is Altered mental status, unspecified; Urinary tract infection, site not specified. Bed requested for Telemetry/MedSurg (Inpatient). Status is Inpatient Admission. Condition is Stable. Problem is new. Symptoms are unchanged. tw4
[2019-09-07] MEDS ORDERED: NA CHLORIDE 0.9% 1,000 ML ONE (21:16)
[2019-09-07] MEDS ORDERED: CEFTRIAXONE/SWI 1gm 1 GM/10 ML SYR ONE (21:16)
[2019-09-07 21:26] LABS: Blood O2 Saturation 99.5 % (92-98.5)
--- NOTE | 2019-09-07 21:45 | P.HP ---
Certification for Inpatient Patient admitted to: Inpatient With expected LOS: >2 Midnights Practitioner: I am a practitioner with admitting privileges, knowledge of patient current condition, hospital course, and medical plan of care. Services: Services provided to patient in accordance with Admission requirements found in Title 42 Section 412.3 of the Code of Federal Regulations Patient History Date of Service: 09/07/19 Reason for admission: altered mental status History of Present Illness: Patient is a 78 year old female with a PMH of Alzheimer's dementia, Hypothyroidism, HTN, CAD s/p [place], atrial fibrillation who presents from the [place] for evaluation of altered mental status. The onset of her sx was around 10 a.m the morning of admission. Last time she was seen normal the evening before during a conversation with daughter who noticed nothing out of place. Progressively throughout the day, she has been having a decline in her mental status. She spiked a fever. EMS was called. En route to the ER, patient could follow commands. Work up in the ER included a CT Head, basic labs and ABG. Only positives include a UTI and PATIENCE. ER is also checking for COVID-19 due to questionable findings on CXR, her sx of shortness of breath and fever spike. Allergies adhesive tape Allergy (Verified 10/20/16 01:51) Itching/Hives/Rash adhesive tape Allergy (Uncoded 10/20/16 02:00) Unknown adhesive tape-silicones Allergy (Uncoded 05/29/17 10:46) Unknown Home Medications: buPROPion HCl [Bupropion HCl Sr] 300 mg PO DAILY 10/20/16 Losartan Potassium [Cozaar*] 50 mg PO DAILY 05/31/17 Donepezil [Aricept*] 10 mg PO BEDTIME 08/07/17 Montelukast [Singulair*] 10 mg PO BEDTIME 08/07/17 Simvastatin 20 mg PO BEDTIME 08/07/17 Theophylline Anhydrous [Lars-24] 200 mg PO DAILY 08/07/17 Levothyroxine [Synthroid*] 100 mcg PO [id number] 05/02/18 Memantine HCl 5 mg PO DAILY 05/02/18 Sotalol HCl [Betapace*] 40 mg PO BID 05/02/18 predniSONE [Deltasone*] 10 mg PO DAILY 05/23/18 Amox/Clavulanate [Augmentin 500-125 mg Tab*] 500 mg PO BID #20 tab 05/25/18 - Past Medical/Surgical History Diabetic: No -: COPD -: CHF -: HTN -: Atrial fibrillation, not on chronic anti coagulation therapy -: Hypothyroidism -: Severe Alzheimer's dementia -: Hyperlipidemia -: Tobacco abuse -: Depression with anxiety -: Tobacco abuse -: Hysterectomy -: Cholecystectomy -: CARDIAC CATH -: ALVIN cataract sx -: Bilateral repairs of ear drums -: Appendectomy Psychosocial/ Personal History: The patient is a . She has 1 child. She does not work. Patient has 24 hr care due to her dementia. Patient also has home health and physical therapy. - Family History Father -: Heart disease, Hypertension, Lung disease, Cancer Notes: Esophogeal Ca Mother -: Heart disease, Hypertension, Diabetes, Stroke Notes: developed blood clot during heart sx. - passed Brother -: Diabetes, Cancer, Liver disease Notes: Liver Ca - Social History Alcohol use: No CD- Drugs: No Caffeine use: No Review of Systems is unable to be obtained Physical Examination - Physical Exam General: Other (somnolent, repsonding to noxious stimuli) HEENT: Atraumatic, Normocephalic Respiratory: Stridor Cardiovascular: No edema, Regular rate/rhythm, Normal S1 S2, Other (1+ pitting edema), Edema Gastrointestinal: Normal bowel sounds, Soft and benign, Non-distended Musculoskeletal: No clubbing, No swelling, No contractures, No erythema, No tenderness, No warmth Integumentary: No rashes, No breakdown, No significant lesion, No tenderness/swelling, No erythema, No warmth, No cyanosis Neurological: Other (patient cannot cooperate with full neuro exam), Dementia - Studies Laboratory Data (last 24 hrs) 09/07/19 20:36: PT 11.5, INR 0.97, APTT 27.3 09/07/19 20:36: WBC 10.8, Hgb 15.8 H, Hct 48.2 H, Plt Count 213 09/07/19 20:36: Sodium 145, Potassium 3.8, BUN 16, Creatinine 1.51 H, Glucose 133 H, Magnesium 2.4, Total Bilirubin 0.5, AST 15, ALT 17, Alkaline Phosphatase 65, Lipase 88 Microbiology Data (last 24 hrs): 09/07/19 20:38 Throat Group A Streptococcus Rapid Screen - Final 09/07/19 20:38 Nasopharnyx Influenza Type A Antigen Screen - Final 09/07/19 20:38 Nasopharnyx Influenza Type B Antigen Screen - Final Assessment and Plan - Problems (Diagnosis) (1) Acute metabolic encephalopathy Current Visit: Yes Status: Acute (2) Alzheimer disease Current Visit: Yes Status: Acute (3) UTI (urinary tract infection) Current Visit: Yes Status: Acute (4) Hypothyroidism Current Visit: Yes Status: Acute (5) Coronary artery disease Current Visit: Yes Status: Acute (6) COPD (chronic obstructive pulmonary disease) Onset Date: 04/23/15 Current Visit: No Status: Acute Qualifiers: COPD type: COPD with acute exacerbation Qualified Code(s): J44.1 - Chronic obstructive pulmonary disease with (acute) exacerbation - Advance Directives Does patient have a Living Will: Yes Does patient have a Durable POA for Healthcare: Yes Physician Review Additional Text: Assessment Patient is a 78 year old female with Alzheimer's dementia, HTN, CAD S/P [place], Atrial fibrillation who presented to the ER via EMS for evaluation of altered mental status. ABG, CT Head, CXR and CBC were all unremarkable. Work up was positive for PATIENCE and possible UTI. Metabolic encephalopathy UTI PATIENCE Alzheimer's dementia COPD CAD S/P [place] Atrial fibrillation Hypothyroidism PLAN: Admit inpatient with telemetry Continue ceftriaxone for UTI. Follow up Urine cultures Start IVF infusion with LR Follow up metabolic work up for AMS: B12, TSH and Ammonia Resume home meds when reconciled. Vital signs are stable
[2019-09-07] MEDS ORDERED: AZITHROMYCIN 500 MG INJ IVPB ONE (22:06)
[2019-09-07] MEDS ORDERED: NA CHLORIDE 0.9% 250 ML ONE (22:06)
[2019-09-07] MEDS ORDERED: Ringers Lactate 1,000 ML IV SCH (23:00)
[2019-09-08 03:24] VITALS: BMI 20.9
[2019-09-08 06:18] LABS: Thyroid Stimulating Hormone 4.11 uIU/mL (0.360-3.740)
[2019-09-08] MEDS: FAMOTIDINE 20 MG/2 ML VIAL IV SCH (08:25)
[2019-09-08] MEDS: CEFTRIAXONE/SWI 1gm 1 GM/10 ML SYR IV SCH (08:25)
[2019-09-08] MEDS: ASCORBIC ACID 500 MG TABLET PO SCH (08:26)
[2019-09-08] MEDS: ENOXAPARIN 40 MG/0.4 ML SQ SCH (08:26)
[2019-09-08] MEDS: AZITHROMYCIN IV 500 MG in NA CHLORIDE 0.9% 250 ML IVPB SCH (08:54)
--- NOTE | 2019-09-08 16:45 | P.PN ---
Subjective Date of Service: 09/08/19 Chief Complaint: altered mental status Subjective: No new changes (Patient is still somnolent, unable to respond to questions.) Physical Examination - Vital Signs Temperature: 97 F Blood Pressure: 141/60 Pulse: 59 Respirations: 22 Pulse Ox (%): 100 - Physical Exam General: Confused, Other (somnolent) HEENT: Atraumatic, Normocephalic Respiratory: Clear to auscultation bilaterally, Normal air movement Cardiovascular: No edema, Normal pulses, Regular rate/rhythm, Normal S1 S2 Gastrointestinal: Normal bowel sounds, Soft and benign, Non-distended Musculoskeletal: No clubbing, No swelling, No contractures, No erythema, No tenderness, No warmth Neurological: Other (patient is unable to cooperate with full neuro exam) - Studies Laboratory Data (last 24 hrs) 09/07/19 20:36: PT 11.5, INR 0.97, APTT 27.3 09/07/19 20:36: WBC 10.8, Hgb 15.8 H, Hct 48.2 H, Plt Count 213 09/07/19 20:36: Sodium 145, Potassium 3.8, BUN 16, Creatinine 1.51 H, Glucose 133 H, Magnesium 2.4, Total Bilirubin 0.5, AST 15, ALT 17, Alkaline Phosphatase 65, Lipase 88 Microbiology Data (last 24 hrs): 09/07/19 20:36 Blood - Blood Anaerobic Blood Culture - Final 09/07/19 20:38 Nasopharnyx Coronavirus COVID-19 PCR - Final 09/07/19 20:38 Throat Group A Streptococcus Rapid Screen - Final 09/07/19 20:38 Nasopharnyx Influenza Type A Antigen Screen - Final 09/07/19 20:38 Nasopharnyx Influenza Type B Antigen Screen - Final Assessment & Plan - Problems (Diagnosis) (1) Acute metabolic encephalopathy Current Visit: Yes Status: Acute (2) Alzheimer disease Current Visit: Yes Status: Acute (3) UTI (urinary tract infection) Current Visit: Yes Status: Acute (4) Hypothyroidism Current Visit: Yes Status: Acute (5) Coronary artery disease Current Visit: Yes Status: Acute (6) COPD (chronic obstructive pulmonary disease) Onset Date: 04/23/15 Current Visit: No Status: Acute Qualifiers: COPD type: COPD with acute exacerbation Qualified Code(s): J44.1 - Chronic obstructive pulmonary disease with (acute) exacerbation Physician Review Additional Text: Assessment Patient is a 78 year old female with Alzheimer's dementia, HTN, CAD S/P [place], Atrial fibrillation who presented to the ER via EMS for evaluation of altered mental status. ABG, CT Head, CXR, ammonia, TSH, B12 and CBC were all unremarkable. Work up was positive for PATIENCE and possible UTI. He continues to be very somnolent despite being on the R therapy. Metabolic encephalopathy UTI PATIENCE Alzheimer's dementia COPD CAD S/P [place] Atrial fibrillation Hypothyroidism PLAN: MRI brain Consult Neurologist Dr. Moody NG tube for tube feeds, d/c IVF infusion once tube feed is running Continue ceftriaxone for UTI. Follow up Urine cultures Recheck BMP Resume home meds: sotalol, donepezil & memantine, albuterol neb
[2019-09-08] MEDS: ALBUTEROL 2.5 MG/3 ML NEB SOL IH PRN ×2 (17:47→20:15)
[2019-09-08] MEDS: THIAMINE 200 MG/2 ML INJ IVP SCH (18:03)
[2019-09-08] MEDS: D5 0.45 NS 1,000 ML IV SCH (18:29)
[2019-09-08] MEDS: predniSONE 10 MG TAB PO SCH (21:00)
[2019-09-08] MEDS ORDERED: HOME MED 1 EA UNK (Simvastatin [Simvastatin] 20 MG) PO SCH (21:00)
[2019-09-08] MEDS: MONTELUKAST 10 MG TAB PO SCH (21:00)
[2019-09-08] MEDS: DONEPEZIL HCL 5 MG TAB PO SCH (21:00)
[2019-09-08] MEDS: SOTALOL HCL 80 MG TAB PO SCH (21:00)
[2019-09-08] MEDS: ATORVASTATIN 10 MG TAB PO SCH (21:00)
[2019-09-09 02:46] LABS: Potassium 2.9 mmol/L (3.5-5.1)
[2019-09-09] MEDS: KCL 20 MEQ/100 mL IVPB 20 MEQ/100 ML BAG IV SCH ×3 (03:52→08:43)
[2019-09-09] MEDS: D5 0.45 NS 1,000 ML IV SCH (04:00)
[2019-09-09] MEDS ORDERED: NA CHLORIDE 0.9% 250 ML ONE (04:00)
[2019-09-09] MEDS: LEVOTHYROXINE SOD 0.1 MG TAB PO SCH (05:22)
--- NOTE | 2019-09-09 07:40 | EKG ---
Test Date: 2019-09-07 Test Time: 21:55:13 Conventional Underwriter: AER MEASUREMENT RESULTS: Intervals: Rate: 71 NM: 148 QRSD: 114 QT: 412 QTc: 447 [place]: P: 80 NM: 148 QRS: 50 T: 67 INTERPRETIVE STATEMENTS: Sinus rhythm with fusion complexes and premature atrial complexes Low voltage QRS Right bundle branch block Abnormal ECG Compared to ECG 05/22/2018 15:36:11 Atrial premature complex(es) now present Fusion complex(es) now present Electronically Signed On 09-09-19 07:39:04 CDT by Rodrigo Vang
[2019-09-09] MEDS: ALBUTEROL 2.5 MG/3 ML NEB SOL IH PRN (08:10)
[2019-09-09] MEDS: CHOLECALCIFEROL PO SCH (08:44)
[2019-09-09] MEDS: SOTALOL HCL 80 MG TAB PO SCH ×2 (08:44→23:35)
[2019-09-09] MEDS: D5.45NS W/KCL 20MEQ 20 MEQ/1,000 ML BAG IV SCH ×2 (08:45→23:34)
[2019-09-09] MEDS: DIVALPROEX DR 500MG TAB PO SCH (08:46)
[2019-09-09] MEDS: predniSONE 10 MG TAB PO SCH ×2 (08:46→23:35)
[2019-09-09] MEDS: THIAMINE 200 MG/2 ML INJ IVP SCH (08:47)
[2019-09-09] MEDS: CEFTRIAXONE/SWI 1gm 1 GM/10 ML SYR IV SCH (08:47)
[2019-09-09] MEDS: FAMOTIDINE 20 MG/2 ML VIAL IV SCH (08:47)
[2019-09-09] MEDS: ENOXAPARIN 40 MG/0.4 ML SQ SCH (08:47)
[2019-09-09] MEDS: ASCORBIC ACID 500 MG TABLET PO SCH (08:48)
[2019-09-09] MEDS: AZITHROMYCIN IV 500 MG in NA CHLORIDE 0.9% 250 ML IVPB SCH (08:48)
[2019-09-09] MEDS: BUPROPRION HCL S.R. 150MG TAB PO SCH (08:48)
[2019-09-09] MEDS ORDERED: HOME MED 1 EA UNK (Memantine Hcl [Memantine Hcl] 5 MG) PO SCH (09:00)
[2019-09-09] MEDS ORDERED: MIRTAZAPINE 15 MG TAB PO SCH (09:00)
--- NOTE | 2019-09-09 10:56 | RAD REPORT ---
EXAM DESCRIPTION: RAD - Chest Single View - 09/09/2019 2:36 am CLINICAL HISTORY: PICC placement COMPARISON: None. TECHNIQUE: AP Chest. FINDINGS: Right subclavian PICC line tip is in the mid aspect of the superior vena cava. No pneumoth orax. Normal cardiac size. Pulmonary vasculature appears normal. Normal cardiomediastinal contours. Lungs a re hyperinflated. Left upper lobe scar/atelectasis. Pleural spaces are clear. Unremarkable soft tissues and bones. IMPRESSION: 1. Right nephrectomy PICC line placed without complication. 2. Left upper lobe scar/atelectasis. Hyperinflation. Electronically signed by: Catherine Phillips DO 09/09/2019 3:07 AM CDT Due to temporary technical issues with the PACS/Fluency reporting system, reports are being signed by the in house radiologist as a courtesy to ensure prompt reporting. The interpreting radiologist is f ully responsible for the content of the report.
[2019-09-09 13:24] LABS: Potassium 4.2 mmol/L (3.5-5.1)
[2019-09-09 13:25] LABS: Phosphorus 1.8 mg/dL (2.5-4.9)
[2019-09-09] MEDS ORDERED: SODIUM PHOSPHATE 15 MM in NA CHLORIDE 0.9% 250 ML IV ONE (13:35)
[2019-09-09] MEDS ORDERED: SODIUM PHOSPHATE 30 MM in NA CHLORIDE 0.9% 500 ML IV ONE (16:00)
[2019-09-09 16:47] LABS: Barbiturates NEGATIVE (NEGATIVE); Benzodiazepines NEGATIVE (NEGATIVE); Cocaine NEGATIVE (NEGATIVE); METHAMPHETAM NEGATIVE (NEGATIVE); Methadone NEGATIVE (NEGATIVE); Opiates NEGATIVE (NEGATIVE); Phencyclidine NEGATIVE (NEGATIVE); THC Cannibis NEGATIVE (NEGATIVE)
--- NOTE | 2019-09-09 17:15 | P.PN ---
Subjective Date of Service: 09/09/19 Chief Complaint: altered mental status Subjective: No new changes (Patient is unable to provide ROS. She is somnolent for the most part, responding only to sternal rub) Review of Systems is unable to be obtained Physical Examination - Vital Signs Temperature: 97 F Blood Pressure: 123/59 Pulse: 69 Respirations: 18 Pulse Ox (%): 94 - Physical Exam General: Confused, Other (somnolent, responding to noxious stimuli only. ) HEENT: Atraumatic, Normocephalic Respiratory: Clear to auscultation bilaterally, Normal air movement Cardiovascular: No edema, Normal pulses, Regular rate/rhythm, Normal S1 S2 Gastrointestinal: Normal bowel sounds, Soft and benign, Non-distended Musculoskeletal: Clubbing, Swelling, Contractures, Erythema, Tenderness, Warmth Neurological: Other (guarded), Dementia - Studies Microbiology Data (last 24 hrs): 09/07/19 20:36 Blood - Blood Anaerobic Blood Culture - Final Assessment & Plan - Problems (Diagnosis) (1) Acute metabolic encephalopathy Current Visit: Yes Status: Acute (2) Alzheimer disease Current Visit: Yes Status: Acute (3) UTI (urinary tract infection) Current Visit: Yes Status: Acute (4) Hypothyroidism Current Visit: Yes Status: Acute (5) Coronary artery disease Current Visit: Yes Status: Acute (6) COPD (chronic obstructive pulmonary disease) Onset Date: 04/23/15 Current Visit: No Status: Acute Qualifiers: COPD type: COPD with acute exacerbation Qualified Code(s): J44.1 - Chronic obstructive pulmonary disease with (acute) exacerbation Physician Review Additional Text: Assessment Patient is a 78 year old female with Alzheimer's dementia, HTN, CAD S/P GA, Atrial fibrillation who presented to the ER via EMS for evaluation of altered mental status. ABG, CT Head, CXR, ammonia, TSH, B12 and CBC were all unremarkable. Work up was positive for PATIENCE and possible UTI. He continues to be very somnolent. Discussed case with her Neurologist, Dr. Moody. Recommends thiamine injections and checking depakote levels, which returned at 15, subtherapeutic. She is on depakote for mood disorder. Metabolic encephalopathy UTI - urine cx (-) PATIENCE - resolved Alzheimer's dementia COPD CAD S/P GA Atrial fibrillation Hypothyroidism PLAN: MRI brain tomorrow Continue thiamine. Continue depakote Appreciate recommendations from Neurology Attempt to insert NG tube again today. She is on several pills for mood disorder. Urine cutlures negative. Discontinue ceftriaxone PATIENCE resolved Resume home meds: sotalol, donepezil & memantine, albuterol neb
--- NOTE | 2019-09-09 19:45 | CON ---
Date of Consultation: 09/09/2019 Time: 151. Reason: Altered mental status. History: A 78-year-old lady well known to myself with advanced Alzheimer disease. She requires 24-h our care and supervision at home. Normally, she has associated behavioral problems. She was in her usual state until the when she came in with altered mental status and low-grade fever. Workup i n the emergency department revealed a urine infection and acute kidney injury with a creatinine up to 1.5 down to 0.75 today. Blood gases were normal. Chest x-ray was unremarkable. Coronavirus test n egative. Flu A and B negative. Strep negative and normal respiratory lorena on throat swab. The [facility] does not have a white count, but she is still obtunded even though the metabolic parameters are improved at least with regard to the renal function. Ammonia was less than 10. She is on a procalci tonin less than 0.05. B12 normal. TSH essentially normal at 4.1. Depakote level 15. CT scan of th e brain unremarkable. Given lack of improvement, neurologic consult was requested. Past Medical History: Alzheimer disease, hypertension, AFib, hypothyroidism. Allergies: TAPE AND SILICONE. Home Medications: Routinely, sotalol, Namenda, Synthroid, simvastatin, Singulair, Aricept, theophyll ine, losartan, bupropion. She is on Depakote as well at home. Social History: Patient normally requires assistance with all activities of daily living. Family History: Noncontributory. Review of Systems: Not properly obtainable given patient's sensorium. Physical Examination: Vital Signs: 97, 69, 18, 123/59. General: She is an elderly lady, lying in bed, difficult to arouse, but arousable and mumbles incomp rehensibly to tactile stimuli. Eyes: Pupils are reactive. Passive ocular motion is present. Neck: Supple. Face: Symmetric. Tongue is midline. Unable to check gag reflex. The patient has diffuse increase in tone throughout. There is no paralysis of any of the extremities. Sensation is intact to pain. Reflexes are 1/4. Toes are silent. Gait and cerebellar exam not tested. Pertinent Laboratory Data: As alluded to. Impression: Metabolic encephalopathy, possible stroke as patient has paroxysmal atrial fibrillation. Plan: She has a brain MRI pending. I would continue the IV thiamine as you are doing. We will foll ow Depakote levels and check an EEG. Thank you for the consult. We will continue to follow with you. FERNANDEZ Voice ID: [id number] Report ID: [id number]
--- NOTE | 2019-09-09 20:19 | RAD REPORT ---
EXAM DESCRIPTION: RAD - Chest Single View - 09/09/2019 6:43 pm CLINICAL HISTORY: NG tube Placement COMPARISON: None TECHNIQUE: AP portable chest image was obtained 09/09/2019 6:43 pmcentered on the diaphragm . FINDINGS: NG tube has been placed. Tip is in the midbody of the stomach. Side hole of the NG tube is in the proximal stomach. Bowel gas pattern is otherwise nonspecific. No other significant findings.
[2019-09-09] MEDS: MONTELUKAST 10 MG TAB PO SCH (23:34)
[2019-09-09] MEDS: ATORVASTATIN 10 MG TAB PO SCH (23:35)
[2019-09-09] MEDS: DONEPEZIL HCL 5 MG TAB PO SCH (23:35)
[2019-09-10] MEDS: HYDRALAZINE HCL 20 MG/ML VIAL IV PRN ×2 (00:38→15:08)
[2019-09-10 05:00] LABS: Phosphorus 2.2 mg/dL (2.5-4.9)
[2019-09-10] MEDS: D5.45NS W/KCL 20MEQ 20 MEQ/1,000 ML BAG IV SCH (05:00)
[2019-09-10] MEDS ORDERED: D5W 1,000 ML IV SCH (06:00)
[2019-09-10] MEDS: LEVOTHYROXINE SOD 0.1 MG TAB PO SCH (06:38)
[2019-09-10] MEDS ORDERED: IPRATROPIUM BROM 0.5MG/2.5ML NEB PRN (07:57)
[2019-09-10] MEDS ORDERED: LEVALBUTEROL 0.63 MG/3 ML NEB NEB PRN (07:57)
[2019-09-10] MEDS: ARFORMOTEROL TARTRATE 15 MCG/2 ML VIAL.NEB NEB SCH ×2 (08:15→20:20)
[2019-09-10 08:37] LABS: Magnesium 1.9 mg/dL (1.8-2.4); Potassium 4.1 mmol/L (3.5-5.1)
[2019-09-10 08:58] LABS: Absolute Lymphocytes (CBC) 1.2 K/uL (0.7-4.9); Basophils % 0.5 % (0-1.3); Hematocrit 34.5 % (36.0-45.0); MPV 9.1 fL (7.6-11.3); RBC Red Blood Cell Count 3.57 M/uL (3.86-4.86)
[2019-09-10] MEDS: CHOLECALCIFEROL PO SCH (09:00)
--- NOTE | 2019-09-10 09:19 | RAD REPORT ---
EXAM DESCRIPTION: - - 09/10/2019 8:50 am CLINICAL HISTORY: AMS, Hx of A fib COMPARISON: No comparisons TECHNIQUE: Real-time sonographic evaluation of bilateral carotid and vertebral systems was performed . Beckwith scale and Doppler interrogation were performed with waveform tracing bilaterally. FINDINGS: Normal high resistance waveforms are noted in both external carotid arteries. The common c arotid arteries and internal carotid arteries show normal low resistance waveforms. Scattered calcified and noncalcified plaquing changes are present. On visual inspection no significan t degree of luminal narrowing identifiable. Peak systolic and end diastolic velocity values and the l eft ICA/CCA ratios are in the non-hemodynamically significant range. Slight elevation of the right IC A/ CCA ratio is believed to be more technical in nature rather than indicating true significant steno sis. Vertebral arteries are poorly visualized and cannot be accurately assessed. Velocity values and ratios were recorded and are retained in the patient's imaging records. Exam is considered limited or compromised due to patient inability to fully cooperate with the examin ation. IMPRESSION: Scattered calcified and noncalcified plaquing changes are present. No hemodynamically significant stenosis identifiable.
[2019-09-10] MEDS: AZITHROMYCIN IV 500 MG in NA CHLORIDE 0.9% 250 ML IVPB SCH (09:20)
[2019-09-10] MEDS: DIVALPROEX DR 500MG TAB PO SCH (09:21)
[2019-09-10] MEDS: ASCORBIC ACID 500 MG TABLET PO SCH (09:21)
[2019-09-10] MEDS: CEFTRIAXONE/SWI 1gm 1 GM/10 ML SYR IV SCH (09:21)
[2019-09-10] MEDS: SOTALOL HCL 80 MG TAB PO SCH ×2 (09:21→22:42)
[2019-09-10] MEDS: ENOXAPARIN 40 MG/0.4 ML SQ SCH (09:21)
[2019-09-10] MEDS: THIAMINE 200 MG/2 ML INJ IVP SCH (09:22)
[2019-09-10] MEDS: FAMOTIDINE 20 MG/2 ML VIAL IV SCH (09:22)
[2019-09-10] MEDS: predniSONE 10 MG TAB PO SCH (09:22)
[2019-09-10] MEDS: BUPROPRION HCL S.R. 150MG TAB PO SCH (09:22)
[2019-09-10] MEDS: MEMANTINE HCL 10 MG TABLET PO SCH (09:25)
[2019-09-10] MEDS ORDERED: POTASSIUM PHOS IN 0.9 % NACL 15 MMOL/250 ML BAG IV ONE (10:49)
[2019-09-10] MEDS ORDERED: JEVITY 1.2 CAL LIQUID 1,000 ML BOT RTH SCH (12:00)
--- NOTE | 2019-09-10 13:18 | RAD REPORT ---
EXAM DESCRIPTION: MRI - Brain W/Wo Cont - 09/10/2019 1:06 pm CLINICAL HISTORY: Confusion/alteration of awareness COMPARISON: 2018 TECHNIQUE: Axial, sagittal, and coronal magnetic images of the brain were obtained. 20 cc MultiHance administered intravenously FINDINGS: Images are degraded by patient motion artifact Mild to moderate signal within periventricular, deep and subcortical white matter probably ischemic c hanges secondary to small vessel disease The ventricles are normal in caliber. Diffusion-weighted/ ADC mapping sequences do not demonstrate evidence of an acute infarction. No abnormal enhancement within the brain is seen. An extra-axial fluid collection is not noted. Chronic right maxillary sinusitis IMPRESSION: No acute abnormality displayed
--- NOTE | 2019-09-10 14:46 | P.PN ---
Subjective Date of Service: 09/10/19 Primary Care Provider: unknown Chief Complaint: altered mental status Subjective: Other (Patient unchanged. Still with altered mental status.) Physical Examination - Vital Signs Temperature: 97.1 F Blood Pressure: 150/67 Pulse: 62 Respirations: 16 Pulse Ox (%): 100 - Physical Exam General: Other (Patient alert. Difficult to arouse.) HEENT: Atraumatic Neck: Supple Respiratory: Expiratory wheezes Cardiovascular: Normal pulses, Regular rate/rhythm Gastrointestinal: Normal bowel sounds, No masses, No rebound, No guarding Integumentary: No erythema, No warmth, No cyanosis Neurological: Other (Still with altered mental status. Difficult to arouse.) - Studies Microbiology Data (last 24 hrs): 09/07/19 20:38 Throat Culture & Sensitivity - Final NORMAL UPPER RESPIRATORY CASEY GROWN. 09/07/19 20:28 Clean Catch Urine [place] Count - Final 09/07/19 20:28 Clean Catch Urine - Final No growth. Medications List Reviewed: Yes Assessment & Plan Discharge Plan: Home Plan to discharge in: 24 Hours - Code Status/Comfort Care Code Status Assessed: Yes (Patient is do not resuscitate) Physician Review Additional Text: Impression: Metabolic encephalopathy Acute renal injury Alzheimer's dementia end-stage CAD Atrial fibrillation not on chronic anti coagulation therapy Hypothyroidism Dysphagia History of nephrectomy Atelectasis Plan: Metabolic encephalopathy: Patient still with altered mental status. So far blood cultures negative. Urine culture negative. No evidence of infection. Pro calcitonin negative. Will discontinue antibiotics. MRI shows no acute stroke. Carotid Doppler negative. Echocardiogram pending. Patient also to get EEG. Will discuss further with Dr. Salas-neurology. Continue thiamine. Will monitor Depakote level. Patient was subtherapeutic. Patient on Depakote for mood disorder. Spoke with daughter at length concerning patient. Patient has caregivers at home. Advanced directives address in detail. Patient is do not resuscitate. Patient with dysphagia. Patient with history of dysphagia as reported by the daughter that this had improved. Speech to reassess today. NG tube in place. Patient may require NG tube feeds. Will continue monitor closely. Will have physical therapy occupational therapy evaluate. Will continue to reassess. Daughter will consider sending her back home with caregiver services if workup unremarkable. Will discuss further with Neurology. Acute renal injury: This has improved with hydration. Will monitor closely. Alzheimer's dementia end-stage: Patient has end-stage dementia. CAD: Continue as above Atrial fibrillation not on chronic anti coagulation therapy: Patient normal sinus rhythm. Continue sotalol. Patient not on chronic anti coagulation therapy due to risk of bleeding and fall. Hypothyroidism: Continue medication. Dysphagia: Speech to evaluate further. Daughter reports if patient has severe dysphagia she will likely not consider PEG tube peer History nephrectomy: Renal function stable. Atelectasis: Continue with oxygen. Wean off oxygen. Time Spent Managing Pts Care (In Minutes): 55
--- NOTE | 2019-09-10 21:00 | PN ---
Date of Progress Note: 09/10/2019 Reason: Altered mental status. Interval History: Patient is stable, perhaps slightly more improved, more semi-purposeful movements, but still not following commands. Brain MRI, no acute stroke. Carotid Doppler, no stenosis. EEG n ot done. She continues to slowly improve and may not have to be done. Depakote level was 7, but I d o not really recommend increasing the Depakote at this juncture. Physical Examination: Vital signs: 97.1, 62, 16, 150/67. General: She is elderly lady, lying in bed. She is not tachypneic. HEENT: Pupils reactive. Ocular motion full passively. Face symmetric. Neurologic: Strength greater than 4+. Sensation intact to pain. Reflexes 1/4. Toes are downgoing. As noted, she has slightly improved semi-purposeful movements, but is still not following commands. Impression: Metabolic encephalopathy, slowly improving. Plan: Continue general supportive care. The patient is still not alert enough to take anything p.o. She is getting NG tube feeds. Thank you for the consult. We will continue to follow with you. DARIELA/PRABHA Voice ID: [id number] Report ID: [id number]
[2019-09-10] MEDS: DONEPEZIL HCL 5 MG TAB PO SCH (22:41)
[2019-09-10] MEDS: ATORVASTATIN 10 MG TAB PO SCH (22:41)
[2019-09-10] MEDS: MONTELUKAST 10 MG TAB PO SCH (22:42)
[2019-09-11] MEDS: LEVOTHYROXINE SOD 0.1 MG TAB PO SCH (05:36)
[2019-09-11 06:10] LABS: Phosphorus 3.6 mg/dL (2.5-4.9); Potassium 3.7 mmol/L (3.5-5.1)
[2019-09-11] MEDS: ARFORMOTEROL TARTRATE 15 MCG/2 ML VIAL.NEB NEB SCH ×2 (07:45→19:55)
--- NOTE | 2019-09-11 08:14 | ECHO ---
HEIGHT: 5 ft 4 in WEIGHT: 129 lb 12.8 oz DATE OF STUDY: 09/10/[address]: Alfredito Rene DO 2-DIMENSIONAL: YES M.MODE: YES DOPPLER: YES COLOR FLOW: YES TDS: YES PORTABLE: NO DEFINITY: NO BUBBLE STUDY: NO DIAGNOSIS: ALTERED MENTAL STATUS CARDIAC HISTORY: CATHERIZATION: SURGERY: PROSTHETIC VALVE: PACEMAKER: MEASUREMENTS (cm) DIASTOLIC (NORMALS) SYSTOLIC (NORMALS) IVSd 1.2 (0.6-1.2) LA Diam (1.9-4.0) LVEF 74% LVIDd 3.1 (3.5-5.7) LVIDs 1.8 (2.0-3.5) %FS 42% LVPWd 1.0 (0.6-1.2) Ao Diam 2.8 (2.0-3.7) 2 DIMENSIONAL ASSESSMENT: RIGHT ATRIUM: NORMAL LEFT ATRIUM: NORMAL RIGHT VENTRICLE: NORMAL LEFT VENTRICLE: NORMAL TRICUSPID VALVE: NORMAL MITRAL VALVE: NORMAL PULMONIC VALVE: NORMAL AORTIC VALVE: NORMAL PERICARDIAL EFFUSION: NONE AORTIC ROOT: NORMAL LEFT VENTRICULAR WALL MOTION: NORMAL. DOPPLER/COLOR FLOW: NORMAL. COMMENTS: TECHNICALLY DIFFICULT STUDY. GROSSLY NORMAL LEFT VENTRICULAR SIZE AND FUNCTION. NO WALL MOTION ABNORMALITY. NO EFFUSION. TECHNOLOGIST: NIKITA OTERO
[2019-09-11] MEDS ORDERED: POTASSIUM 25 MEQ EFFERV TAB PO ONE (09:00)
[2019-09-11] MEDS: CHOLECALCIFEROL PO SCH (09:00)
[2019-09-11] MEDS: ENOXAPARIN 40 MG/0.4 ML SQ SCH (09:30)
[2019-09-11] MEDS: THIAMINE 200 MG/2 ML INJ IVP SCH (09:31)
[2019-09-11] MEDS: ASCORBIC ACID 500 MG TABLET PO SCH (09:31)
[2019-09-11] MEDS: MEMANTINE HCL 10 MG TABLET PO SCH (09:31)
[2019-09-11] MEDS: FAMOTIDINE 20 MG/2 ML VIAL IV SCH (09:31)
[2019-09-11] MEDS: SOTALOL HCL 80 MG TAB PO SCH ×2 (09:31→20:35)
[2019-09-11] MEDS: predniSONE 10 MG TAB PO SCH (09:31)
[2019-09-11] MEDS: ASPIRIN EC 81 MG TAB PO SCH (09:32)
[2019-09-11] MEDS: BUPROPRION HCL S.R. 150MG TAB PO SCH (09:32)
[2019-09-11] MEDS: DIVALPROEX DR 500MG TAB PO SCH (09:32)
--- NOTE | 2019-09-11 10:28 | P.PN ---
Subjective Date of Service: 09/11/19 Primary Care Provider: unknown Chief Complaint: altered mental status Subjective: Demented, Other (Patient more alert today.) Physical Examination - Vital Signs Temperature: 97.1 F Blood Pressure: 140/63 Pulse: 69 Respirations: 20 Pulse Ox (%): 98 - Physical Exam General: Demented, Other (Patient more alert today. Still with severe dementia.) HEENT: Atraumatic Neck: Supple Respiratory: Clear to auscultation bilaterally, Normal air movement Cardiovascular: Normal pulses, Regular rate/rhythm Gastrointestinal: Normal bowel sounds Neurological: Normal speech, Dementia - Studies Microbiology Data (last 24 hrs): 09/07/19 20:38 Throat Culture & Sensitivity - Final NORMAL UPPER RESPIRATORY CASEY GROWN. 09/07/19 20:28 Clean Catch Urine [place] Count - Final 09/07/19 20:28 Clean Catch Urine - Final No growth. Medications List Reviewed: Yes Assessment & Plan Discharge Plan: Home Plan to discharge in: 24 Hours Physician Review Additional Text: Impression: Metabolic encephalopathy Acute renal injury Alzheimer's dementia end-stage CAD Atrial fibrillation not on chronic anti coagulation therapy Hypothyroidism Dysphagia History of nephrectomy Atelectasis Plan: Metabolic encephalopathy: Patient more alert today. MRI negative, carotid Doppler negative, echocardiogram unremarkable. Will have speech reassess swallowing today. Antibiotics discontinued yesterday. Case discussed with Neurology. Case also discuss with daughter. Patient is do not resuscitate. Continue to monitor over the next 24 hr. If able to the eat to then will start oral feeds. Anticipate discharge tomorrow. Daughter reports patient has 24 hr care. No need for hospice. Daughter also understands her condition is chronic with poor prognosis. Patient may require hospital bed at discharge. Physical therapy and occupational therapy to evaluate patient. Acute renal injury: This has improved with hydration. Will monitor closely. Alzheimer's dementia end-stage: Patient has end-stage dementia. CAD: Continue as above Atrial fibrillation not on chronic anti coagulation therapy: Patient normal sinus rhythm. Continue sotalol. Patient not on chronic anti coagulation therapy due to risk of bleeding and fall. Hypothyroidism: Continue medication. Dysphagia: Since the patient is more alert will have speech reassess. Daughter would not want PEG tube if required. History nephrectomy: Renal function stable. Atelectasis: Continue with oxygen. Wean off oxygen. Time Spent Managing Pts Care (In Minutes): 55
[2019-09-11] MEDS: IPRATROPIUM BROM 0.5MG/2.5ML NEB PRN (19:55)
[2019-09-11] MEDS: LEVALBUTEROL 0.63 MG/3 ML NEB NEB PRN (19:55)
[2019-09-11] MEDS: ATORVASTATIN 10 MG TAB PO SCH (20:36)
[2019-09-11] MEDS: MONTELUKAST 10 MG TAB PO SCH (20:36)
[2019-09-11] MEDS: DONEPEZIL HCL 5 MG TAB PO SCH (20:36)
[2019-09-11] MEDS: HYDRALAZINE HCL 20 MG/ML VIAL IV PRN (20:37)
[2019-09-12] MEDS: IPRATROPIUM BROM 0.5MG/2.5ML NEB PRN (01:45)
[2019-09-12] MEDS: LEVALBUTEROL 0.63 MG/3 ML NEB NEB PRN (01:45)
[2019-09-12 05:54] LABS: Potassium 3.8 mmol/L (3.5-5.1)
[2019-09-12] MEDS: LEVOTHYROXINE SOD 0.1 MG TAB PO SCH (06:45)
[2019-09-12] MEDS: ARFORMOTEROL TARTRATE 15 MCG/2 ML VIAL.NEB NEB SCH (08:22)
[2019-09-12] MEDS ORDERED: POTASSIUM 25 MEQ EFFERV TAB PO ONE (09:00)
[2019-09-12] MEDS: ASPIRIN EC 81 MG TAB PO SCH ×2 (09:00→09:48)
[2019-09-12] MEDS: CHOLECALCIFEROL PO SCH (09:00)
[2019-09-12] MEDS: BUPROPRION HCL S.R. 150MG TAB PO SCH ×2 (09:00→09:48)
[2019-09-12] MEDS: DIVALPROEX DR 500MG TAB PO SCH ×2 (09:00→09:50)
[2019-09-12] MEDS: SOTALOL HCL 80 MG TAB PO SCH (09:48)
[2019-09-12] MEDS: ENOXAPARIN 40 MG/0.4 ML SQ SCH (09:48)
[2019-09-12] MEDS: ASCORBIC ACID 500 MG TABLET PO SCH (09:49)
[2019-09-12] MEDS: MEMANTINE HCL 10 MG TABLET PO SCH (09:49)
[2019-09-12] MEDS: THIAMINE 200 MG/2 ML INJ IVP SCH (09:50)
[2019-09-12] MEDS: predniSONE 10 MG TAB PO SCH (09:55)
[2019-09-12] MEDS: FAMOTIDINE 20 MG/2 ML VIAL IV SCH (09:55)
[2019-09-12 10:08] VITALS: O2SAT 99
[2019-09-12] MEDS: buPROPion HCL 100 MG TAB PO SCH ×2 (10:39→14:36)
--- NOTE | 2019-09-12 11:18 | EEG ---
CHART: [id number] TEST ID#: [id number] DATE OF STUDY: 09/11/2019 THE EEG WAS RECORDED PORTABLE IN THE PATIENT'S ROOM ON A 17 CHANNEL MACHINE. ELECTRODES WERE APPLIED IN THE USUAL MANNER USING THE INTERNATIONAL 10-20 SYSTEM. THE WAKING BACKGROUND RHYTHM IN THIS RECORD CONSISTS OF POORLY DEVELOPED AND POORLY ORGANIZED WAVES OF UP TO 8 HZ., MAXIMAL IN THE POSTERIOR HEAD REGIONS WHICH ATTENUATE NORMALLY WITH EYE OPENING. ADMIXED AND SUPERIMPOSED DIPHASIC AND TRIPHASIC SHARPLY CONTOURED SLOWING OF 4-6 HZ IS SEEN IN A GENERALIZED DISTRIBUTION. THERE ARE NO FOCAL OR LATERALIZING FEATURES. SLEEP DID NOT OCCUR. HYPERVENTILATION WAS NOT PERFORMED. PHOTIC STIMULATION PRODUCED POOR DRIVING BILATERALLY. IMPRESSION: ABNORMAL EEG BECAUSE OF GENERALZIED AND EXCESSIVE SLOWING OF THE BACKGROUND. THE ABOVE INDICATED DIFFUSE CEREBRAL DYSFUNCTION.
--- NOTE | 2019-09-12 15:38 | P.DS ---
Admission Date: 09/07/19 Discharge Date: 09/12/19 Primary Care Provider: unknown Disposition: HOSPICE-HOME Discharge Condition: CRITICAL Reason for Admission: altered mental status Consultations: Neurology-Dr. Salas Procedures: Brain MRI: FINDINGS: Images are degraded by patient motion artifact Mild to moderate signal within periventricular, deep and subcortical white matter probably ischemic changes secondary to small vessel disease The ventricles are normal in caliber. Diffusion-weighted/ ADC mapping sequences do not demonstrate evidence of an acute infarction. No abnormal enhancement within the brain is seen. An extra-axial fluid collection is not noted. Chronic right maxillary sinusitis IMPRESSION: No acute abnormality displayed Carotid doppler: FINDINGS: Normal high resistance waveforms are noted in both external carotid arteries. The common carotid arteries and internal carotid arteries show normal low resistance waveforms. Scattered calcified and noncalcified plaquing changes are present. On visual inspection no significant degree of luminal narrowing identifiable. Peak systolic and end diastolic velocity values and the left ICA/CCA ratios are in the non-hemodynamically significant range. Slight elevation of the right ICA/ CCA ratio is believed to be more technical in nature rather than indicating true significant stenosis. Vertebral arteries are poorly visualized and cannot be accurately assessed. Velocity values and ratios were recorded and are retained in the patient's imag ing records. Exam is considered limited or compromised due to patient inability to fully cooperate with the examination. IMPRESSION: Scattered calcified and noncalcified plaquing changes are present. No hemodynamically significant stenosis identifiable. ECHO: EF 74% LEFT VENTRICULAR WALL MOTION: NORMAL. DOPPLER/COLOR FLOW: NORMAL. COMMENTS: TECHNICALLY DIFFICULT STUDY. GROSSLY NORMAL LEFT VENTRICULAR SIZE AND FUNCTION. NO WALL MOTION ABNORMALITY. NO EFFUSION. Medical Problem List: Metabolic encephalopathy Acute renal injury Alzheimer's dementia end-stage CAD Atrial fibrillation not on chronic anti coagulation therapy Hypothyroidism Dysphagia History of nephrectomy Atelectasis Brief History of Present Illness: 78-year-old female with severe Alzheimer's dementia presented with altered mental status. Patient was admitted for further evaluation. Hospital Course: Patient presented with metabolic encephalopathy. During the course of her stay patient was evaluated. Neurology was also consulted. Patient with multiple medical problems including Alzheimer's dementia end-stage, CAD, atrial fibrillation not on chronic anti coagulation therapy, hypothyroidism, and history of nephrectomy. Patient appeared dehydrated upon admission. She was given IV fluids. There was some suspicion for infection. This was ruled out. This included COVID. MRI brain, carotid Doppler, and echocardiogram were all unremarkable. During the course of her stay her condition did not improve. Patient was noted to have some dysphagia. Speech worked with the patient multiple times without any success. Case discussed in detail with Neurology and family concerning plan of care. Neurology had expressed that her condition has significant declined over the past year. This was expressed also by family. Advanced directives were addressed. Patient was made do not resuscitate. Further plan of care including the possibility of hospice was addressed. Due to no significant improvement in her mentation and swallowing, family decided on hospice. Hospice at home will be arranged. Patient will continue with comfort measures and comfort feeding. Further orders will come from hospice. Please refer to daily notes for details in her care. Vital Signs/Physical Exam: Temp Pulse Resp BP Pulse Ox 97 F 66 17 133/59 L 93 09/12/19 12:00 09/12/19 12:00 09/12/19 12:00 09/12/19 12:00 09/12/19 12:00 General: Demented HEENT: Atraumatic Neck: Supple Respiratory: Clear to auscultation bilaterally, Normal air movement Cardiovascular: Normal pulses, Regular rate/rhythm Neurological: Dementia Laboratory Data at Discharge: WBC 6.2 K/uL (4.3-10.9) D 09/10/19 08:49 Hgb 11.8 g/dL (12.0-15.0) L D 09/10/19 08:49 Hct 34.5 % (36.0-45.0) L D 09/10/19 08:49 Plt Count 141 K/uL (152-406) L D 09/10/19 08:49 PT 11.5 SECONDS (9.5-12.5) 09/07/19 20:36 INR 0.97 09/07/19 20:36 APTT 27.3 SECONDS (24.3-36.9) 09/07/19 20:36 Sodium 144 mmol/L (136-145) 09/12/19 05:10 Potassium 3.8 mmol/L (3.5-5.1) 09/12/19 05:10 BUN 10 mg/dL (7-18) 09/12/19 05:10 Creatinine 0.74 mg/dL (0.55-1.3) 09/12/19 05:10 Glucose 130 mg/dL (74-106) H 09/12/19 05:10 Phosphorus 3.6 mg/dL (2.5-4.9) D 09/11/19 05:35 Magnesium 1.9 mg/dL (1.8-2.4) 09/10/19 08:00 Total Bilirubin 0.5 mg/dL (0.2-1.0) 09/07/19 20:36 AST 15 U/L (15-37) 09/07/19 20:36 ALT 17 U/L (12-78) 09/07/19 20:36 Alkaline Phosphatase 65 U/L (45-117) 09/07/19 20:36 Lipase 88 U/L (73-393) 09/07/19 20:36 Home Medications: buPROPion HCl [Bupropion HCl Sr] 300 mg PO DAILY 10/20/16 Donepezil [Aricept*] 10 mg PO BEDTIME 08/07/17 Montelukast [Singulair*] 10 mg PO BEDTIME 08/07/17 Simvastatin 20 mg PO BEDTIME 08/07/17 Levothyroxine [Synthroid*] 100 mcg PO [id number] 05/02/18 Memantine HCl 5 mg PO DAILY 05/02/18 Sotalol HCl [Betapace*] 40 mg PO BID 05/02/18 predniSONE [Deltasone*] 10 mg PO BID 05/23/18 Albuterol Neb [Proventil 0.083% Neb Soln] 1 amp IH Q4H PRN 09/08/19 Cholecalciferol (Vitamin D3) [Vitamin D3] 500 mcg PO DAILY 09/08/19 Divalproex Sodium 1 tab PO DAILY 09/08/19 Patient Discharge Instructions: DC to Inpatient hospice. Hospice to further address meds. comfort meds. Diet: NPO Activity: Bedrest Time spent managing pt's care (in minutes): 55
[2019-09-12 17:41] VITALS: BP 143/74; TEMP 97.4
[2019-09-12] MEDS ORDERED: VALPROIC ACID 250 MG/5 ML OSYR PO SCH (21:00)
[2019-09-13] MEDS ORDERED: BUPROPRION HCL S.R. 150MG TAB PO SCH (09:00)
[2019-09-13] MEDS ORDERED: ASPIRIN 81 MG CHEWABLE TABLET PO SCH (09:00)
== END 2019-09-12 17:39 | disposition hospice, home (50) | DRG 689 ==
LOC: ER 19:51 → ERHOLD 22:04 → 4TH 23:19 → 2ND 09-08 05:44
PROVIDERS: ADMIT Internal Medicine; ATTEND Family Medicine
DX: N39.0 Urinary tract infection, site not specified (principal); G93.41 Metabolic encephalopathy; N17.9 Acute kidney failure, unspecified; J98.11 Atelectasis; J44.1 Chronic obstructive pulmonary disease with (acute) exacerbation; G30.9 Alzheimer's disease, unspecified; F02.80 Dementia in other diseases classified elsewhere, unspecified severity, without behavioral disturbance, psychotic disturbance, mood disturbance, and anxiety; I48.0 Paroxysmal atrial fibrillation; J44.9 Chronic obstructive pulmonary disease, unspecified; E03.9 Hypothyroidism, unspecified; E78.00 Pure hypercholesterolemia, unspecified; F32.9 Major depressive disorder, single episode, unspecified; I11.0 Hypertensive heart disease with heart failure; I25.10 Atherosclerotic heart disease of native coronary artery without angina pectoris; I50.9 Heart failure, unspecified; Z66 Do not resuscitate; R13.10 Dysphagia, unspecified; I25.2 Old myocardial infarction; Z99.81 Dependence on supplemental oxygen; Z90.5 Acquired absence of kidney
CPT/HCPCS: 36415; 36569; 70450; 70553; 71045; 80048; 80076; 80164; 80307; 81003; 81015; 82140; 82550; 82553; 82607; 82805; 83605; 83690; 83735; 83880; 84100; 84132; 84145; 84439; 84443; 84484; 85025; 85610; 85730; 87040; 87070; 87081; 87086; 87088; 87804; 93005; 93306; 93880; 94640; 95816; 96361; 96365; 96375; 97110; 97161; 99285; A9577; J0360; J0456; J0696; J1650; J3411; J7030; J7040; J7120; J7512; J7605; J7799; U0002